=== PATIENT | male | born 1945 | race Hispanic/Latino ===

== ENCOUNTER 2017-02-12 11:05 | Inpatient (IN) | payer MEDICARE, MEDICAID ==
[2017-02-12 11:06] VITALS: BMI 24.5
[2017-02-12] MEDS ORDERED: Vancomycin 1 g Inj ONE (11:37)
--- NOTE | 2017-02-12 11:53 | ED PDOC ---
Lower Extremity Pain/Injury Time Seen by Provider: 02/12/17 11:20 Chief Complaint (Nursing): Lower Extremity Problem/Injury Chief Complaint (Provider): right great toe ulcer History Per: Patient History/Exam Limitations: no limitations Current Symptoms Are (Timing): Still Present Additional Complaint(s): Kalia Lowe is a 71 year old male, with a previous medical history of diabetes and a cardiac stent, who was sent to the ED by poured wall foreman Dr. Toledo secondary to failed outpatient treatment of a diabetic ulcer of the right great toe. Pt has been taking oral antibiotics with no improvement. Automation And Control Engineer is requesting pt be admitted for IV antibiotics and wound care. Pt denies any fever , chills, numbness or tingling. PMD: Diamond Toledo MD poured wall foreman Past Medical History Reviewed: Historical Data, Nursing Documentation, Vital Signs - Medical History PMH: Diabetes, HTN, Kidney Stones, Chronic Kidney Disease (KIDNEY STONES) Denies: Arthritis, HIV - Surgical History Surgical History: Cholecystectomy, Coronary Stent (times 1), Tonsillectomy - Family History Family History: States: Diabetes - Social History Current smoker - smoking cessation education provided: Yes - Home Medications Home Medications: Ambulatory Orders Medication Instructions Recorded Pantoprazole Sodium [Protonix] 40 mg PO DAILY 01/26/16 SITagliptin [Januvia] 100 mg PO DAILY 01/26/16 Aspirin [Aspirin Chewable] 81 mg PO DAILY #0 chew 01/30/16 Clopidogrel [Plavix] 75 mg PO DAILY #0 tab 01/30/16 Glimepiride [amaRYL] 4 mg PO DAILY 02/24/16 Ondansetron [Zofran] 4 mg PO Q6H PRN #10 tab 08/19/16 Insulin Human Regular [Novolin R] 15 units SQ DAILY 02/12/17 - Allergies Allergies/Adverse Reactions: Allergies Allergy/AdvReac Type Severity Reaction Status Date / Time No Known Allergies Allergy Verified 03/19/16 09:30 Review of Systems ROS Statement: Except As Marked, All Systems Reviewed And Found Negative Constitutional: Negative for: Fever, Chills Musculoskeletal: Positive for: Foot Pain (right great toe ulcer ) Neurological: Negative for: Numbness, Other (tingling ) Physical Exam - Reviewed Nursing Documentation Reviewed: Yes Vital Signs Reviewed: Yes - Physical Exam Appears: Positive for: Well, Non-toxic, No Acute Distress Skin: Positive for: Normal Color, Warm, Dry Cardiovascular/Chest: Positive for: Regular Rate, Rhythm Respiratory: Positive for: CNT, Normal Breath Sounds Gastrointestinal/Abdominal: Positive for: Normal Exam Back: Positive for: Normal Inspection Extremity: Positive for: Tenderness (mild tenderness to right great toe ), Other (ulcer to the plantar surface of the right great toe. no drainage of pus) . Negative for: Calf Tenderness, Deformity, Swelling Neurologic/Psych: Positive for: Alert, Oriented. Negative for: Motor/Sensory Deficits - Laboratory Results Result Diagrams: 02/12/17 12:00 02/12/17 12:00 Medical Decision Making Medical Decision Making: Initial Impression: Diabetic Ulcer with failed outpatient treatment Initial Plan: * labs * blood culture * partial thromboplastin time * prothrombin time * x-ray right foot * x-ray right great toe * blood culture * vancomycin inj * cleocin IV * reevaluation 1:15 PM - Admission endorsed to Garrick Hwang SQUASH CENTRE MANAGER. Podiatry also saw pt and recommend admission for IV abx. Arterial doppler also ordered to assess pt's pulses. Podiatry will follow as a consulting service. 13:41 X-ray Great toe BONES: There is diffuse bone demineralization. There is no acute fracture or bone destruction. Bone alignment is normal. JOINTS: Normal. SOFT TISSUES: There is soft tissue swelling in the great toe. OTHER FINDINGS: None. IMPRESSION: No acute fracture or bone destruction. Soft tissue swelling in the great toe. Scribe Attestation: Documented by Erica Desai, acting as a scribe for Anish Keith Jr., D.O. Provider Scribe Attestation: All medical record entries made by the Scribe were at my direction and personally dictated by me. I have reviewed the chart and agree that the record accurately reflects my personal performance of the history, physical exam, medical decision making, and the department course for this patient. I have also personally directed, reviewed, and agree with the discharge instructions and disposition. Disposition - Clinical Impression Clinical Impression: Toe ulcer due to DM - Patient ED Disposition Is Patient to be Admitted: Yes - Disposition Disposition Time: 13:02 Condition: FAIR - Pt Status Changed To: Hospital Disposition Of: Inpatient - Admit Certification Admit to Inpatient:: After my assessment, the patient will require hospitalization for at least two midnights. This is because of the severity of symptoms shown, intensity of services needed, and/or the medical risk in this patient being treated as an outpatient.
[2017-02-12 12:09] LABS: BASO # 0.1 K/uL (0.0-0.2); BASO % 1.4 % (0.0-2.0); EOS # 0.2 K/uL (0.0-0.7); EOS % 3.5 % (0.0-4.0); HEMATOCRIT 42.1 % (35.0-51.0); LYMPH # 2.1 K/uL (1.0-4.3); LYMPH % 29.9 % (20.0-40.0); MEAN CELL VOLUME 70.7 fl (80.0-94.0); MEAN CORPUSCULAR HEMOGLOBIN 22.7 pg (27.0-31.0); MEAN CORPUSCULAR HGB CONC 32.1 g/dL (33.0-37.0); MEAN PLATELET VOLUME 8.7 fl (7.2-11.7); MONO # 0.6 K/uL (0.0-0.8); MONO % 8.8 % (0.0-10.0); NEUT # 3.9 K/uL (1.8-7.0); NEUT % 56.4 % (50.0-75.0); RED CELL DISTRIBUTION WIDTH 15.4 % (11.5-14.5); WHITE BLOOD COUNT 6.9 K/uL (4.8-10.8)
[2017-02-12 12:17] LABS: ALB/GLOB RATIO 1.1 (1.0-2.1); ALKALINE PHOSPHATASE 106 U/L (38-126); ALT/SGPT 26 U/L (21-72); AST/SGOT 25 U/L (17-59); BILIRUBIN,TOTAL 0.6 mg/dl (0.2-1.3); BLOOD UREA NITROGEN 20 mg/dl (9-20); CALCIUM 9.7 mg/dL (8.4-10.2); CARBON DIOXIDE 23 mmol/L (22-30); CHLORIDE 108 mmol/L (98-107); GFR AFRICAN-AMERICAN > 60; GLUCOSE,RANDOM 102 mg/dL (75-110); POTASSIUM 4.4 MMOL/L (3.6-5.0); SODIUM 145 mmol/l (132-148); TOTAL PROTEIN 7.4 G/DL (6.3-8.2)
[2017-02-12 12:28] LABS: PARTIAL THROMBOPLASTIN TIME 26.6 SECONDS (23.3-32.5)
--- NOTE | 2017-02-12 12:45 | CP.PCM.CON ---
History of Present Illness - History of Present Illness History of Present Illness: PODIATRY CONSULT NOTE FOR DR. CISSE: This is a 71 yo male patient who presents to the ED today with chief complaint of right big toe ulceration. Per pt he saw his patcher wood welder today (Dr. Soha Toledo) who sent patient to the ED. Patient has failed outpatient po antibiotics. Says he has had an ulcer to this toe x 2 weeks. Previously had ulcer to left toe which he says has healed. Denies f/n/v/c/sob/cp. Says he is compliant with meds. Denies numbness or tingling to the foot. PMH: DM, cardiac stent ALL: NKDA Meds: see MAR Soc. Hx: non-domiciled, smokes 1-2 packs cig/day x 30 years, denies ETOH, denies illicit drugs PMD: Millie (CASUALTY CLAIMS SUPERVISOR at [facility]) Paint Spray Tender: Dr. Diamond Toledo ([facility]) Review of Systems - Review of Systems Review of Systems: All systems reviewed and found to be negative except pertinent HPI findings Past Patient History - Infectious Disease Hx of Infectious Diseases: None - Past Medical History & Family History Past Medical History?: Yes - Past Social History Smoking Status: Former Smoker - CARDIAC Hx Hypertension: Yes - PULMONARY Hx Respiratory Disorders: No - NEUROLOGICAL Hx Neurological Disorder: No - HEENT Hx HEENT Problems: Yes Hx Cataracts: Yes - RENAL Hx Chronic Kidney Disease: Yes (KIDNEY STONES) Hx Kidney Stones: Yes - ENDOCRINE/METABOLIC Hx Endocrine Disorders: Yes Hx Diabetes Mellitus Type 2: Yes - HEMATOLOGICAL/ONCOLOGICAL Hx Human Immunodeficiency Virus (HIV): No - INTEGUMENTARY Hx Dermatological Problems: No - MUSCULOSKELETAL/RHEUMATOLOGICAL Hx Arthritis: No - GASTROINTESTINAL Hx Gastrointestinal Disorders: Yes Hx Gastroesophageal Reflux: Yes - GENITOURINARY/GYNECOLOGICAL Hx Genitourinary Disorders: No - PSYCHIATRIC Hx Psychophysiologic Disorder: No Hx Substance Use: No - SURGICAL HISTORY Hx Cholecystectomy: Yes Hx Coronary Stent: Yes (times 1) Hx Tonsillectomy: Yes - ANESTHESIA Hx Anesthesia: Yes Hx Anesthesia Reactions: No Hx Malignant Hyperthermia: No Meds Allergies/Adverse Reactions: Allergies Allergy/AdvReac Type Severity Reaction Status Date / Time No Known Allergies Allergy Verified 03/19/16 09:30 - Medications Medications: Current Medications Vancomycin HCl 1,000 mg/ (Sodium Chloride) 250 mls @ 125 mls/hr IVPB STAT STA Stop: 02/12/17 13:38 Last Admin: 02/12/17 11:58 Dose: 125 mls/hr Clindamycin Phosphate 600 mg/ (Sodium Chloride) 54 mls @ 54 mls/hr IVPB ONCE ONE Stop: 02/12/17 12:47 Physical Exam - Constitutional Appears: Non-toxic, No Acute Distress - Extremities Exam Extremities exam: Negative for: calf tenderness Additional comments: RLE focused exam: VASC- DP/PT pulses fully palpable, cft <3 sec to digits x 5, cap refill <3 sec to all digits, slight edema noted to distal hallux NEURO- gross pedal sensation is diminished DERM- erythema is noted circumferentially starting from naviculo-cuneiform joint extending distally to hallux w/ increased callor, there is an ulceration noted plantar-medial aspect of hallux IPJ w/ granular wound bed, no probe to bone, no malodor, no flucutuance, no purulence on compression ORTHO- tenderness to palpation of wound, no gross deformities seen - Neurological Exam Neurological exam: Alert, CN II-XII Intact, Oriented x3 - Psychiatric Exam Psychiatric exam: Normal Affect, Normal Mood Results - Labs Result Diagrams: 02/12/17 12:00 02/12/17 12:00 Labs: Laboratory Results - last 24 hr 02/12/17 12:00 WBC 6.9 RBC 5.96 H Hgb 13.5 Hct 42.1 MCV 70.7 L MCH 22.7 L MCHC 32.1 L RDW 15.4 H Plt Count 189 MPV 8.7 Neut % (Auto) 56.4 Lymph % (Auto) 29.9 [place] % (Auto) 8.8 Eos % (Auto) 3.5 Baso % (Auto) 1.4 Neut # 3.9 Lymph # 2.1 [place] # 0.6 Eos # 0.2 Baso # 0.1 Sodium 145 Potassium 4.4 Chloride 108 H Carbon Dioxide 23 Anion Gap 18 BUN 20 Creatinine 0.7 L Est GFR ( Amer) > 60 Est GFR (Non-Af Amer) > 60 Random Glucose 102 Calcium 9.7 Total Bilirubin 0.6 AST 25 ALT 26 Alkaline Phosphatase 106 Total Protein 7.4 Albumin 3.9 Globulin 3.5 Albumin/Globulin Ratio 1.1 Assessment & Plan - Assessment and Plan (Free Text) Assessment: 71 yo diabetic male w/ ulceration and cellulitis to right foot secondary to diabetic neuropathy Plan: -Pt S&E in ED at bedside -Discussed plan w/ attending Dr. Leatha GREENBERG and ED attending Dr. Keith -Chart labs and vitals reviewed: afebrile, WBC 6.9 -Wound cx taken -Xrays reviewed: (-) OM, no fx or dislocation, soft tissue swelling noted -Wound flushed with normal saline and dressed with W2D betadine gauze, DSD -Pt may WB to heal -F/u arterial duplex -Abd per primary (clinda,vanco) -Will be admitted for IV antibiotics under Garrick Hwang NP -Will follow
--- NOTE | 2017-02-12 13:43 | RAD ---
PROCEDURE: Radiographs of the right great toe. TECHNIQUE:: AP radiograph of the right foot, with oblique and lateral view of the right great toe. COMPARISON: 03/19/2016. FINDINGS: BONES: There is diffuse bone demineralization. There is no acute fracture or bone destruction. Bone alignment is normal. JOINTS: Normal. SOFT TISSUES: There is soft tissue swelling in the great toe. OTHER FINDINGS: None. IMPRESSION: No acute fracture or bone destruction. Soft tissue swelling in the great toe.
[2017-02-12] MEDS ORDERED: Insulin Regular 100 units/ml SC SCH (14:00)
[2017-02-12] MEDS: Sodium Chloride 0.9% 1,000 ML IV SCH (16:00)
[2017-02-12] MEDS: Clindamycin 300 MG in Sodium Chloride 0.9% 100 ML IVPB SCH ×2 (17:03→23:05)
[2017-02-12] MEDS: Lactobacillus Acidophilus 500 MU Cap PO SCH (17:04)
[2017-02-12] MEDS: Pantoprazole 40 mg EC Tab PO SCH (17:05)
[2017-02-13] MEDS: Sodium Chloride 0.9% 1,000 ML IV SCH
[2017-02-13] MEDS: Clindamycin 300 MG in Sodium Chloride 0.9% 100 ML IVPB SCH ×5 (03:33→22:36)
--- NOTE | 2017-02-13 07:50 | CP.PCM.PN ---
Subjective - Date & Time of Evaluation Date of Evaluation: 02/13/17 Time of Evaluation: 07:45 - Subjective Subjective: 71 yo diabetic male patient seen at bedside today for f/u of right hallux ulceration/cellulitis. Resting comfortably in bed, denies any acute events overnight. Does complain of very slight tenderness to the toe. Denies f/n/v/c/ sob/cp. Denies any other problems at this time. Objective - Vital Signs/Intake and Output Vital Signs (last 24 hours): Temp Pulse Resp BP Pulse Ox 97.9 F 66 20 138/64 97 02/12/17 20:56 02/12/17 20:56 02/12/17 20:56 02/12/17 20:56 02/12/17 20:56 - Medications Medications: Current Medications Aspirin (Aspirin Chewable) 81 mg PO DAILY [facility] Last Admin: 02/12/17 17:04 Dose: 81 mg Clopidogrel Bisulfate (Plavix) 75 mg PO DAILY [facility] Last Admin: 02/12/17 17:09 Dose: 75 mg Enoxaparin Sodium (Lovenox) 40 mg SC DAILY [facility] PRN Reason: Protocol Glipizide (Glucotrol Xl) 10 mg PO DAILY [facility] Sodium Chloride (Sodium Chloride 0.9%) 1,000 mls @ 100 mls/hr IV .Q10H [facility] Stop: 02/13/17 14:01 Last Admin: 02/13/17 00:00 Dose: Not Given Vancomycin HCl 1 gm/ Sodium (Chloride) 250 mls @ 166.667 mls/hr IVPB Q12 [facility] Last Admin: 02/12/17 21:00 Dose: 166.667 mls/hr Clindamycin Phosphate 300 mg/ (Sodium Chloride) 102 mls @ 102 mls/hr IVPB 0530, 1130,1730,2330 [facility] Last Admin: 02/13/17 05:10 Dose: 102 mls/hr Insulin Human Regular (Humulin R) 15 units SC DAILY [facility] Last Admin: 02/12/17 17:00 Dose: Not Given Lactobacillus Acidophilus (Bacid Acidophilus) 1 cap PO BID [facility] Last Admin: 02/12/17 17:04 Dose: 1 cap Ondansetron HCl (Zofran Tab) 4 mg PO Q6H PRN PRN Reason: Nausea/Vomiting Pantoprazole Sodium (Protonix Ec Tab) 40 mg PO DAILY [facility] Last Admin: 02/12/17 17:05 Dose: 40 mg Sitagliptin Phosphate (Januvia) 100 mg PO DAILY [facility] Last Admin: 02/12/17 17:04 Dose: 100 mg - Labs Labs: PT 10.0 SECONDS (9.6-11.2) 02/12/17 12:00 INR 0.96 (0.92-1.08) 02/12/17 12:00 APTT 26.6 SECONDS (23.3-32.5) 02/12/17 12:00 - Constitutional Appears: Well, Non-toxic, No Acute Distress - Extremities Exam Extremities Exam: absent: Calf Tenderness Additional comments: RLE focused exam: VASC- DP/PT pulses fully palpable, cft <3 sec to digits x 5, cap refill <3 sec to all digits, slight edema noted to distal hallux NEURO- gross pedal sensation is diminished DERM- erythema is present but appears to be regressing, there is an ulceration noted plantar-medial aspect of hallux IPJ w/ granular wound bed, no probe to bone, no malodor, no flucutuance, no purulence on compression, appears dry today ORTHO- slight tenderness to palpation of wound, no gross deformities seen - Neurological Exam Neurological Exam: Alert, Awake, Oriented x3 - Psychiatric Exam Psychiatric exam: Normal Affect, Normal Mood Assessment and Plan - Assessment and Plan (Free Text) Assessment: 71 yo diabetic male w/ ulceration and cellulitis to right foot secondary to diabetic neuropathy Plan: -Pt S&E at bedside -Plan discussed w/ attending Dr. Zhang -Chart labs and vitals reviewed: afebrile, WBC 5.1 today -Wound cx (prelim): no growth after 24 hours -Xrays reviewed: (-) OM, no fx or dislocation, soft tissue swelling noted -Arterial duplex taken: pending report -Wound flushed with normal saline and dressed with W2D saline gauze, DSD -Will order Santyl (to be applied tomorrow) -Pt may WB to heal w/ surgical shoe -c/w abxprimary (clinda,vanco) -Stable per podiatry -Will follow
[2017-02-13 08:40] LABS: BASO % 0.9 % (0.0-2.0); EOS # 0.3 K/uL (0.0-0.7); EOS % 5.2 % (0.0-4.0); HEMATOCRIT 41.6 % (35.0-51.0); LYMPH # 1.4 K/uL (1.0-4.3); LYMPH % 26.5 % (20.0-40.0); MEAN CELL VOLUME 70.4 fl (80.0-94.0); MEAN CORPUSCULAR HEMOGLOBIN 22.5 pg (27.0-31.0); MEAN CORPUSCULAR HGB CONC 31.9 g/dL (33.0-37.0); MEAN PLATELET VOLUME 8.7 fl (7.2-11.7); MONO # 0.6 K/uL (0.0-0.8); NEUT # 2.9 K/uL (1.8-7.0); NEUT % 56.4 % (50.0-75.0); NRBC % 0.1 % (0.0-0.0); RED CELL DISTRIBUTION WIDTH 15.3 % (11.5-14.5); WHITE BLOOD COUNT 5.1 K/uL (4.8-10.8)
[2017-02-13 09:09] LABS: ALB/GLOB RATIO 1.1 (1.0-2.1); ALKALINE PHOSPHATASE 76 U/L (38-126); ALT/SGPT 30 U/L (21-72); AST/SGOT 21 U/L (17-59); BILIRUBIN,TOTAL 0.6 mg/dl (0.2-1.3); BLOOD UREA NITROGEN 19 mg/dl (9-20); CALCIUM 8.8 mg/dL (8.4-10.2); CARBON DIOXIDE 27 mmol/L (22-30); CHLORIDE 108 mmol/L (98-107); GFR AFRICAN-AMERICAN > 60; GLUCOSE,RANDOM 103 mg/dL (75-110); POTASSIUM 4.6 MMOL/L (3.6-5.0); SODIUM 145 mmol/l (132-148); TOTAL PROTEIN 6.3 G/DL (6.3-8.2)
--- NOTE | 2017-02-13 09:27 | CP.PCM.PN ---
Subjective - Date & Time of Evaluation Date of Evaluation: 02/13/17 Time of Evaluation: 09:27 Objective - Vital Signs/Intake and Output Vital Signs (last 24 hours): Temp Pulse Resp BP Pulse Ox 98 F 63 20 167/68 H 98 02/13/17 07:54 02/13/17 07:54 02/13/17 07:54 02/13/17 07:54 02/13/17 07:54 - Medications Medications: Current Medications Aspirin (Aspirin Chewable) 81 mg PO DAILY [facility] Last Admin: 02/12/17 17:04 Dose: 81 mg Clopidogrel Bisulfate (Plavix) 75 mg PO DAILY [facility] Last Admin: 02/12/17 17:09 Dose: 75 mg Collagenase (Santyl) 1 applic TOP DAILY [facility] Enoxaparin Sodium (Lovenox) 40 mg SC DAILY [facility] PRN Reason: Protocol Glipizide (Glucotrol Xl) 10 mg PO DAILY [facility] Sodium Chloride (Sodium Chloride 0.9%) 1,000 mls @ 100 mls/hr IV .Q10H [facility] Stop: 02/13/17 14:01 Last Admin: 02/13/17 00:00 Dose: Not Given Vancomycin HCl 1 gm/ Sodium (Chloride) 250 mls @ 166.667 mls/hr IVPB Q12 [facility] Last Admin: 02/12/17 21:00 Dose: 166.667 mls/hr Clindamycin Phosphate 300 mg/ (Sodium Chloride) 102 mls @ 102 mls/hr IVPB 0530, 1130,1730,2330 [facility] Last Admin: 02/13/17 05:10 Dose: 102 mls/hr Insulin Human Regular (Humulin R) 15 units SC DAILY [facility] Last Admin: 02/12/17 17:00 Dose: Not Given Lactobacillus Acidophilus (Bacid Acidophilus) 1 cap PO BID [facility] Last Admin: 02/12/17 17:04 Dose: 1 cap Ondansetron HCl (Zofran Tab) 4 mg PO Q6H PRN PRN Reason: Nausea/Vomiting Pantoprazole Sodium (Protonix Ec Tab) 40 mg PO DAILY [facility] Last Admin: 02/12/17 17:05 Dose: 40 mg Sitagliptin Phosphate (Januvia) 100 mg PO DAILY [facility] Last Admin: 02/12/17 17:04 Dose: 100 mg - Labs Labs: 02/13/17 06:50 02/13/17 06:50 PT 10.0 SECONDS (9.6-11.2) 02/12/17 12:00 INR 0.96 (0.92-1.08) 02/12/17 12:00 APTT 26.6 SECONDS (23.3-32.5) 02/12/17 12:00
[2017-02-13] MEDS: Lactobacillus Acidophilus 500 MU Cap PO SCH ×2 (10:04→16:46)
[2017-02-13] MEDS: GlipiZIDE 10 mg SR Tab PO SCH (10:04)
[2017-02-13] MEDS: Pantoprazole 40 mg EC Tab PO SCH (10:05)
--- NOTE | 2017-02-13 10:45 | CP.PCM.HP ---
History of Present Illness - History of Present Illness History of Present Illness: pt admitted for r great toe cellulitis. cared for by podiatry and primary at [facility]. at [facility] just changed by podaitry resident. on vanco/cleocin in house. c/so btaine dna is pending. wound x 2 wks. pt is homeless but has apt lined up for 02/23/17. pts glucose wnlat present. takes ok care of himself-?? able to fiscally care for self. will need ss/cm intervention prior to dc Present on Admission - Present on Admission Any Indicators Present on Admission: No Review of Systems - Integumentary Integumentary: As Per HPI, Erythema Past Patient History - Infectious Disease Hx of Infectious Diseases: None - Past Medical History & Family History Past Medical History?: Yes - Past Social History Smoking Status: 2 packs - CARDIAC Hx Hypertension: Yes - PULMONARY Hx Respiratory Disorders: No - NEUROLOGICAL Hx Neurological Disorder: No - HEENT Hx HEENT Problems: Yes Hx Cataracts: Yes - RENAL Hx Chronic Kidney Disease: Yes (KIDNEY STONES) Hx Kidney Stones: Yes - ENDOCRINE/METABOLIC Hx Endocrine Disorders: Yes Hx Diabetes Mellitus Type 2: Yes - HEMATOLOGICAL/ONCOLOGICAL Hx Human Immunodeficiency Virus (HIV): No - INTEGUMENTARY Hx Dermatological Problems: No - MUSCULOSKELETAL/RHEUMATOLOGICAL Hx Arthritis: No Hx Falls: No - GASTROINTESTINAL Hx Gastrointestinal Disorders: Yes Hx Gastroesophageal Reflux: Yes - GENITOURINARY/GYNECOLOGICAL Hx Genitourinary Disorders: No - PSYCHIATRIC Hx Psychophysiologic Disorder: No Hx Substance Use: No - SURGICAL HISTORY Hx Cataract Extraction: Yes Hx Cholecystectomy: Yes Hx Coronary Stent: Yes (times 1) Hx Tonsillectomy: Yes - ANESTHESIA Hx Anesthesia: Yes Hx Anesthesia Reactions: No Hx Malignant Hyperthermia: No Meds Allergies/Adverse Reactions: Allergies Allergy/AdvReac Type Severity Reaction Status Date / Time No Known Allergies Allergy Verified 03/19/16 09:30 Physical Exam - Constitutional Appears: Well, Non-toxic, No Acute Distress - Head Exam Head Exam: ATRAUMATIC, NORMAL INSPECTION, NORMOCEPHALIC - Eye Exam Eye Exam: EOMI, Normal appearance, PERRL Pupil Exam: NORMAL ACCOMODATION, PERRL - ENT Exam ENT Exam: Mucous Membranes Moist, Normal Exam - Neck Exam Neck exam: Positive for: Normal Inspection - Respiratory Exam Respiratory Exam: Clear to Auscultation Bilateral, NORMAL BREATHING PATTERN - Cardiovascular Exam Cardiovascular Exam: REGULAR RHYTHM, RRR, +S1, +S2 - GI/Abdominal Exam GI & Abdominal Exam: Normal Bowel Sounds, Soft. absent: Tenderness - Extremities Exam Extremities exam: Positive for: full ROM, normal capillary refill, normal inspection, pedal pulses present - Back Exam Back exam: FULL ROM, NORMAL INSPECTION - Neurological Exam Neurological exam: Alert, CN II-XII Intact, Normal Gait, Oriented x3, Reflexes Normal - Psychiatric Exam Psychiatric exam: Normal Affect, Normal Mood - Skin Skin Exam: Dry, Erythema, Intact, Normal Color, Warm Additional comments: dsg to r foot c/d/i Results - Vital Signs Recent Vital Signs: Last Vital Signs Temp 98 F 02/13/17 07:54 Pulse 63 02/13/17 07:54 Resp 20 02/13/17 07:54 BP 167/68 H 02/13/17 07:54 Pulse Ox 98 02/13/17 07:54 - Labs Result Diagrams: 02/13/17 06:50 02/13/17 06:50 Labs: Laboratory Results - last 24 hr 02/12/17 02/12/17 02/13/17 16:30 21:18 06:14 WBC RBC Hgb Hct MCV MCH MCHC RDW Plt Count MPV Neut % (Auto) Lymph % (Auto) [place] % (Auto) Eos % (Auto) Baso % (Auto) Neut # Lymph # [place] # Eos # Baso # Sodium Potassium Chloride Carbon Dioxide Anion Gap BUN Creatinine Est GFR ( Amer) Est GFR (Non-Af Amer) POC Glucose (mg/dL) 135 H 111 H 103 Random Glucose Calcium Total Bilirubin AST ALT Alkaline Phosphatase Total Protein Albumin Globulin Albumin/Globulin Ratio 02/13/17 02/13/17 06:50 10:36 WBC 5.1 RBC 5.90 Hgb 13.3 Hct 41.6 MCV 70.4 L MCH 22.5 L MCHC 31.9 L RDW 15.3 H Plt Count 161 MPV 8.7 Neut % (Auto) 56.4 Lymph % (Auto) 26.5 [place] % (Auto) 11.0 H Eos % (Auto) 5.2 H Baso % (Auto) 0.9 Neut # 2.9 Lymph # 1.4 [place] # 0.6 Eos # 0.3 Baso # 0.0 Sodium 145 Potassium 4.6 Chloride 108 H Carbon Dioxide 27 Anion Gap 15 BUN 19 Creatinine 0.8 Est GFR ( Amer) > 60 Est GFR (Non-Af Amer) > 60 POC Glucose (mg/dL) 205 H Random Glucose 103 Calcium 8.8 Total Bilirubin 0.6 AST 21 ALT 30 Alkaline Phosphatase 76 Total Protein 6.3 Albumin 3.3 L Globulin 3.1 Albumin/Globulin Ratio 1.1 Assessment & Plan (1) DVT prophylaxis Assessment and Plan: scd nad a ehose lovenox Status: Acute (2) Toe ulcer due to DM Assessment and Plan: vanco/cleocin podiatry wound care santyl c/s garret/tcu Status: Acute (3) Type 2 diabetes mellitus with hyperglycemia Assessment and Plan: riss, dietary fsbg Status: Acute Decision To Admit - Pt Status Changed To: Hospital Disposition Of: Inpatient - Admit Certification Admit to Inpatient:: After my assessment, the patient will require hospitalization for at least two midnights. This is because of the severity of symptoms shown, intensity of services needed, and/or the medical risk in this patient being treated as an outpatient. - . Bed Request Type: Med/Surg Admitting Physician: Hedy Franks
[2017-02-13] MEDS: Insulin Regular 100 units/ml SC SCH ×3 (13:17→21:38)
[2017-02-13] MEDS: Enoxaparin 40 mg Syringe SC SCH (18:53)
[2017-02-14] MEDS: Clindamycin 300 MG in Sodium Chloride 0.9% 100 ML IVPB SCH ×4 (05:03→22:30)
[2017-02-14] MEDS: Insulin Regular 100 units/ml SC SCH ×4 (06:40→22:03)
--- NOTE | 2017-02-14 07:22 | CP.PCM.PN ---
Subjective - Date & Time of Evaluation Date of Evaluation: 02/14/17 Time of Evaluation: 07:22 - Subjective Subjective: doing well, no complaitns/distress bw noted sw aware fo pt for dcd planning no f/c, n/v/d pod note appricaited Objective - Vital Signs/Intake and Output Vital Signs (last 24 hours): Temp Pulse Resp BP Pulse Ox 98.5 F 64 18 153/74 H 98 02/13/17 21:07 02/13/17 21:07 02/13/17 21:07 02/13/17 21:07 02/13/17 21:07 - Medications Medications: Current Medications Aspirin (Aspirin Chewable) 81 mg PO DAILY [facility] Last Admin: 02/13/17 10:04 Dose: 81 mg Clopidogrel Bisulfate (Plavix) 75 mg PO DAILY [facility] Last Admin: 02/13/17 10:04 Dose: 75 mg Collagenase (Santyl) 1 applic TOP DAILY [facility] Enoxaparin Sodium (Lovenox) 40 mg SC DAILY [facility] PRN Reason: Protocol Last Admin: 02/13/17 18:53 Dose: 40 mg Glipizide (Glucotrol Xl) 10 mg PO DAILY [facility] Last Admin: 02/13/17 10:04 Dose: 10 mg Vancomycin HCl 1 gm/ Sodium (Chloride) 250 mls @ 166.667 mls/hr IVPB Q12 [facility] Last Admin: 02/13/17 20:26 Dose: 166.667 mls/hr Clindamycin Phosphate 300 mg/ (Sodium Chloride) 102 mls @ 102 mls/hr IVPB 0530, 1130,1730,2330 [facility] Last Admin: 02/14/17 05:03 Dose: 102 mls/hr Insulin Human Regular (Humulin R) 0 units SC ACHS [facility] PRN Reason: Protocol Last Admin: 02/14/17 06:40 Dose: Not Given Lactobacillus Acidophilus (Bacid Acidophilus) 1 cap PO BID [facility] Last Admin: 02/13/17 16:46 Dose: 1 cap Ondansetron HCl (Zofran Tab) 4 mg PO Q6H PRN PRN Reason: Nausea/Vomiting Pantoprazole Sodium (Protonix Ec Tab) 40 mg PO DAILY [facility] Last Admin: 02/13/17 10:05 Dose: 40 mg Sitagliptin Phosphate (Januvia) 100 mg PO DAILY [facility] Last Admin: 02/13/17 10:04 Dose: 100 mg - Labs Labs: 02/13/17 06:50 02/13/17 06:50 PT 10.0 SECONDS (9.6-11.2) 02/12/17 12:00 INR 0.96 (0.92-1.08) 02/12/17 12:00 APTT 26.6 SECONDS (23.3-32.5) 02/12/17 12:00 - Constitutional Appears: Well, Non-toxic, No Acute Distress - Head Exam Head Exam: ATRAUMATIC, NORMAL INSPECTION, NORMOCEPHALIC - Eye Exam Eye Exam: EOMI, Normal appearance, PERRL Pupil Exam: NORMAL ACCOMODATION, PERRL - ENT Exam ENT Exam: Mucous Membranes Moist, Normal Exam - Neck Exam Neck Exam: Full ROM, Normal Inspection. absent: Lymphadenopathy - Respiratory Exam Respiratory Exam: Clear to Ausculation Bilateral, NORMAL BREATHING PATTERN - Cardiovascular Exam Cardiovascular Exam: REGULAR RHYTHM, +S1, +S2. absent: Murmur - GI/Abdominal Exam GI & Abdominal Exam: Soft, Normal Bowel Sounds. absent: Tenderness - Extremities Exam Extremities Exam: Full ROM, Normal Capillary Refill, Normal Inspection. absent : Joint Swelling, Pedal Edema - Back Exam Back Exam: NORMAL INSPECTION - Neurological Exam Neurological Exam: Alert, Awake, CN II-XII Intact, Normal Gait, Oriented x3 - Psychiatric Exam Psychiatric exam: Normal Affect, Normal Mood - Skin Skin Exam: Dry, Intact, Normal Color, Warm Additional comments: dsg c/d/i Assessment and Plan (1) DVT prophylaxis Status: Acute (2) Toe ulcer due to DM Status: Acute (3) Type 2 diabetes mellitus with hyperglycemia Status: Acute - Assessment and Plan (Free Text) Assessment: (1) DVT prophylaxis Assessment and Plan: scd nad a ehose lovenox Status: Acute (2) Toe ulcer due to DM Assessment and Plan: vanco/cleocin podiatry wound care santyl c/s [place]/tcu Status: Acute (3) Type 2 diabetes mellitus with hyperglycemia Assessment and Plan: riss, dietary fsbg Status: Acute 4-headache/nasal congestion-flonase
--- NOTE | 2017-02-14 07:28 | CP.PCM.PN ---
Subjective - Date & Time of Evaluation Date of Evaluation: 02/14/17 Time of Evaluation: 07:30 - Subjective Subjective: 71 yo diabetic male patient seen at bedside today for f/u of right hallux ulceration/cellulitis. Resting comfortably in bed, denies any acute events overnight. Does complain of very slight tenderness to the toe. Denies f/n/v/c/ sob/cp. Denies any other problems at this time. Objective - Vital Signs/Intake and Output Vital Signs (last 24 hours): Temp Pulse Resp BP Pulse Ox 98.5 F 64 18 153/74 H 98 02/13/17 21:07 02/13/17 21:07 02/13/17 21:07 02/13/17 21:07 02/13/17 21:07 - Medications Medications: Current Medications Aspirin (Aspirin Chewable) 81 mg PO DAILY [facility] Last Admin: 02/13/17 10:04 Dose: 81 mg Clopidogrel Bisulfate (Plavix) 75 mg PO DAILY [facility] Last Admin: 02/13/17 10:04 Dose: 75 mg Collagenase (Santyl) 1 applic TOP DAILY [facility] Enoxaparin Sodium (Lovenox) 40 mg SC DAILY [facility] PRN Reason: Protocol Last Admin: 02/13/17 18:53 Dose: 40 mg Fluticasone Propionate (Flonase) 1 spr RADHA BID [facility] Glipizide (Glucotrol Xl) 10 mg PO DAILY [facility] Last Admin: 02/13/17 10:04 Dose: 10 mg Vancomycin HCl 1 gm/ Sodium (Chloride) 250 mls @ 166.667 mls/hr IVPB Q12 [facility] Last Admin: 02/13/17 20:26 Dose: 166.667 mls/hr Clindamycin Phosphate 300 mg/ (Sodium Chloride) 102 mls @ 102 mls/hr IVPB 0530, 1130,1730,2330 [facility] Last Admin: 02/14/17 05:03 Dose: 102 mls/hr Insulin Human Regular (Humulin R) 0 units SC ACHS [facility] PRN Reason: Protocol Last Admin: 02/14/17 06:40 Dose: Not Given Lactobacillus Acidophilus (Bacid Acidophilus) 1 cap PO BID [facility] Last Admin: 02/13/17 16:46 Dose: 1 cap Ondansetron HCl (Zofran Tab) 4 mg PO Q6H PRN PRN Reason: Nausea/Vomiting Pantoprazole Sodium (Protonix Ec Tab) 40 mg PO DAILY [facility] Last Admin: 02/13/17 10:05 Dose: 40 mg Sitagliptin Phosphate (Januvia) 100 mg PO DAILY [facility] Last Admin: 02/13/17 10:04 Dose: 100 mg - Labs Labs: 02/13/17 06:50 02/13/17 06:50 PT 10.0 SECONDS (9.6-11.2) 02/12/17 12:00 INR 0.96 (0.92-1.08) 02/12/17 12:00 APTT 26.6 SECONDS (23.3-32.5) 02/12/17 12:00 - Constitutional Appears: Well, Non-toxic, No Acute Distress - Extremities Exam Extremities Exam: absent: Calf Tenderness Additional comments: RLE focused exam: VASC- DP/PT pulses fully palpable, cft <3 sec to digits x 5, cap refill <3 sec to all digits, slight edema noted to distal hallux NEURO- gross pedal sensation is diminished DERM- erythema resolved, there is an ulceration noted plantar-medial aspect of hallux IPJ w/ granular wound bed, no probe to bone, no malodor, no flucutuance, no purulence on compression, appears dry today ORTHO- slight tenderness to palpation of wound, no gross deformities seen - Neurological Exam Neurological Exam: Alert, Awake, Oriented x3 - Psychiatric Exam Psychiatric exam: Normal Affect, Normal Mood Assessment and Plan - Assessment and Plan (Free Text) Assessment: 71 yo diabetic male w/ ulceration right foot secondary to diabetic neuropathy ( cellulitis resolved) Plan: -Pt S&E at bedside -Plan discussed w/ attending Dr. Zhang -Chart labs and vitals reviewed: afebrile, WBC 6.1 today -Wound cx (prelim): no growth after 24 hours -Xrays reviewed: (-) OM, no fx or dislocation, soft tissue swelling noted -Arterial duplex taken: pending report -Wound flushed with normal saline and dressed w/ santyl DSD -Pt may WB to heal w/ surgical shoe -c/w abx per primary (clinda,vanco) -Stable per podiatry. -Will follow
[2017-02-14 07:39] LABS: BASO % 0.6 % (0.0-2.0); EOS # 0.2 K/uL (0.0-0.7); EOS % 3.2 % (0.0-4.0); HEMATOCRIT 41.9 % (35.0-51.0); LYMPH # 1.7 K/uL (1.0-4.3); LYMPH % 27.6 % (20.0-40.0); MEAN CELL VOLUME 70.9 fl (80.0-94.0); MEAN CORPUSCULAR HEMOGLOBIN 22.7 pg (27.0-31.0); MEAN PLATELET VOLUME 8.7 fl (7.2-11.7); MONO # 0.6 K/uL (0.0-0.8); MONO % 9.9 % (0.0-10.0); NEUT # 3.6 K/uL (1.8-7.0); NEUT % 58.7 % (50.0-75.0); NRBC % 0.2 % (0.0-0.0); RED CELL DISTRIBUTION WIDTH 15.5 % (11.5-14.5); WHITE BLOOD COUNT 6.1 K/uL (4.8-10.8)
[2017-02-14 07:47] LABS: ALB/GLOB RATIO 1.1 (1.0-2.1); ALKALINE PHOSPHATASE 81 U/L (38-126); ALT/SGPT 30 U/L (21-72); AST/SGOT 19 U/L (17-59); BILIRUBIN,TOTAL 0.5 mg/dl (0.2-1.3); BLOOD UREA NITROGEN 17 mg/dl (9-20); CALCIUM 8.9 mg/dL (8.4-10.2); CARBON DIOXIDE 27 mmol/L (22-30); CHLORIDE 106 mmol/L (98-107); GFR AFRICAN-AMERICAN > 60; GLUCOSE,RANDOM 110 mg/dL (75-110); POTASSIUM 4.3 MMOL/L (3.6-5.0); SODIUM 146 mmol/l (132-148); TOTAL PROTEIN 6.6 G/DL (6.3-8.2)
--- NOTE | 2017-02-14 08:18 | US ---
PROCEDURE: Duplex ultrasound of the right lower extremity arteries. HISTORY: assess pedal and arterial flow COMPARISON: None available. TECHNIQUE: Grayscale and duplex Doppler evaluation of the right common femoral, superficial femoral, popliteal, posterior tibial and dorsalis pedis arteries was performed.. FINDINGS: COMMON FEMORAL ARTERY: Patent. Maximal flow velocity of 105 cm/s. SUPERFICIAL FEMORAL ARTERY:Patent. Maximal flow velocity of 73 cm/s. POPLITEAL ARTERY:Calcified plaque. Maximal flow velocity of sixty-two cm/s. POSTERIOR TIBIAL ARTERY: Patent. Maximal flow velocity of 36 cm/s. DORSALIS PEDIS ARTERY: Monophasic waveform, spectral broadening common dampening of arterial waveform calcified dorsalis pedis artery Maximal flow velocity of 208 cm/s. OTHER FINDINGS: None. IMPRESSION: Vascular stenoses confined to the right dorsalis pedis artery, maximum flow 208 centimeter/second. More proximally at peak systolic velocities are within normal limits without evidence of inflow disease or significant stenoses.
[2017-02-14] MEDS: Lactobacillus Acidophilus 500 MU Cap PO SCH ×2 (08:48→17:00)
[2017-02-14] MEDS: GlipiZIDE 10 mg SR Tab PO SCH (08:49)
[2017-02-14] MEDS: Pantoprazole 40 mg EC Tab PO SCH (08:50)
[2017-02-14] MEDS: Enoxaparin 40 mg Syringe SC SCH (08:51)
[2017-02-14] MEDS: Santyl Collagenase OINTMENT TOP SCH (11:27)
[2017-02-14 20:53] VITALS: O2SAT 98
--- NOTE | 2017-02-15 07:42 | CP.PCM.DIS ---
Provider - Provider Date of Admission: 02/12/17 13:00 Attending physician: Hedy Franks MD Time Spent in preparation of Discharge (in minutes): 15 Diagnosis - Discharge Diagnosis (1) Type 2 diabetes mellitus with hyperglycemia Status: Acute (2) DVT prophylaxis Status: Acute (3) Toe ulcer due to DM Status: Acute Hospital Course - Lab Results Lab Results: Micro Results 02/12/17 13:22 Foot - Right Gram Stain - Final 02/12/17 13:22 Foot - Right Wound Culture - Final Coagulase Neg Staphylococcus Most Recent Lab Values WBC 6.1 K/uL (4.8-10.8) 02/14/17 05:40 RBC 5.91 Mil/uL (4.40-5.90) H 02/14/17 05:40 Hgb 13.4 g/dL (12.0-18.0) 02/14/17 05:40 Hct 41.9 % (35.0-51.0) 02/14/17 05:40 MCV 70.9 fl (80.0-94.0) L 02/14/17 05:40 MCH 22.7 pg (27.0-31.0) L 02/14/17 05:40 MCHC 32.0 g/dL (33.0-37.0) L 02/14/17 05:40 RDW 15.5 % (11.5-14.5) H 02/14/17 05:40 Plt Count 165 K/uL (130-400) 02/14/17 05:40 MPV 8.7 fl (7.2-11.7) 02/14/17 05:40 Neut % (Auto) 58.7 % (50.0-75.0) 02/14/17 05:40 Lymph % (Auto) 27.6 % (20.0-40.0) 02/14/17 05:40 [place] % (Auto) 9.9 % (0.0-10.0) 02/14/17 05:40 Eos % (Auto) 3.2 % (0.0-4.0) 02/14/17 05:40 Baso % (Auto) 0.6 % (0.0-2.0) 02/14/17 05:40 Neut # 3.6 K/uL (1.8-7.0) 02/14/17 05:40 Lymph # 1.7 K/uL (1.0-4.3) 02/14/17 05:40 [place] # 0.6 K/uL (0.0-0.8) 02/14/17 05:40 Eos # 0.2 K/uL (0.0-0.7) 02/14/17 05:40 Baso # 0.0 K/uL (0.0-0.2) 02/14/17 05:40 PT 10.0 SECONDS (9.6-11.2) 02/12/17 12:00 INR 0.96 (0.92-1.08) 02/12/17 12:00 APTT 26.6 SECONDS (23.3-32.5) 02/12/17 12:00 Sodium 146 mmol/l (132-148) 02/14/17 05:40 Potassium 4.3 MMOL/L (3.6-5.0) 02/14/17 05:40 Chloride 106 mmol/L (98-107) 02/14/17 05:40 Carbon Dioxide 27 mmol/L (22-30) 02/14/17 05:40 Anion Gap 18 (10-20) 02/14/17 05:40 BUN 17 mg/dl (9-20) 02/14/17 05:40 Creatinine 0.9 mg/dL (0.8-1.5) 02/14/17 05:40 Est GFR ( Amer) > 60 02/14/17 05:40 Est GFR (Non-Af Amer) > 60 02/14/17 05:40 POC Glucose (mg/dL) 121 mg/dL (65-110) H 02/15/17 05:56 Random Glucose 110 mg/dL (75-110) 02/14/17 05:40 Calcium 8.9 mg/dL (8.4-10.2) 02/14/17 05:40 Total Bilirubin 0.5 mg/dl (0.2-1.3) 02/14/17 05:40 AST 19 U/L (17-59) 02/14/17 05:40 ALT 30 U/L (21-72) 02/14/17 05:40 Alkaline Phosphatase 81 U/L (38-126) 02/14/17 05:40 Total Protein 6.6 G/DL (6.3-8.2) 02/14/17 05:40 Albumin 3.4 g/dL (3.5-5.0) L 02/14/17 05:40 Globulin 3.2 gm/dL (2.2-3.9) 02/14/17 05:40 Albumin/Globulin Ratio 1.1 (1.0-2.1) 02/14/17 05:40 Discharge Exam - Head Exam Head Exam: ATRAUMATIC, NORMAL INSPECTION, NORMOCEPHALIC - Eye Exam Eye Exam: EOMI, Normal appearance, PERRL Pupil Exam: NORMAL ACCOMODATION, PERRL - Respiratory Exam Respiratory Exam: Clear to PA & Lateral, NORMAL BREATHING PATTERN, UNREMARKABLE - Cardiovascular Exam Cardiovascular Exam: REGULAR RHYTHM, RRR, +S1, +S2 - GI/Abdominal Exam GI & Abdominal Exam: Normal Bowel Sounds, Soft, Unremarkable - Extremities Exam Extremities exam: full ROM, normal capillary refill, normal inspection, pedal pulses present - Back Exam Back exam: FULL ROM - Neurological Exam Neurological exam: Alert, CN II-XII Intact, Normal Gait, Oriented x3, Reflexes Normal - Psychiatric Exam Psychiatric exam: Normal Affect, Normal Mood - Skin Skin Exam: Dry, Intact, Normal Color, Warm Discharge Plan - Follow Up Plan Condition: FAIR Disposition: REHAB FACILITY/REHAB UNIT Additional Instructions: r foot wound doing well. no f/c, n/v/d. no pain. distla pms intact. final dx r great toe wound r/t dm2. uncontrollled dm2. f/u rmg/pmd in [place]. cont anbx x 7 days rted prn.
[2017-02-15 08:01] VITALS: BP 154/69; PULSE 63; RESP 18; TEMP 97.9
--- NOTE | 2017-02-15 08:13 | CP.PCM.PN ---
Subjective - Date & Time of Evaluation Date of Evaluation: 02/15/17 Time of Evaluation: 08:00 - Subjective Subjective: 71 yo diabetic male patient seen at bedside today w/ Dr. Zhang present regarding right hallux ulceration/cellulitis. Pt seen resting comfortably in bed at time of visit, pleasant and chatty. Denies any acute events overnight. Denies f/n/v/c/sob/cp. Objective - Vital Signs/Intake and Output Vital Signs (last 24 hours): Temp Pulse Resp BP Pulse Ox 97.9 F 63 18 154/69 H 98 02/15/17 08:00 02/15/17 08:00 02/15/17 08:00 02/15/17 08:00 02/15/17 08:00 - Medications Medications: Current Medications Aspirin (Aspirin Chewable) 81 mg PO DAILY [facility] Last Admin: 02/14/17 08:48 Dose: 81 mg Clopidogrel Bisulfate (Plavix) 75 mg PO DAILY [facility] Last Admin: 02/14/17 08:50 Dose: 75 mg Collagenase (Santyl) 1 applic TOP DAILY [facility] Last Admin: 02/14/17 11:27 Dose: 1 applic Enoxaparin Sodium (Lovenox) 40 mg SC DAILY [facility] PRN Reason: Protocol Last Admin: 02/14/17 08:51 Dose: 40 mg Fluticasone Propionate (Flonase) 1 spr RADHA BID [facility] Last Admin: 02/14/17 17:00 Dose: 1 spr Glipizide (Glucotrol Xl) 10 mg PO DAILY [facility] Last Admin: 02/14/17 08:49 Dose: 10 mg Vancomycin HCl 1 gm/ Sodium (Chloride) 250 mls @ 166.667 mls/hr IVPB Q12 [facility] Last Admin: 02/14/17 23:22 Dose: 166.667 mls/hr Clindamycin Phosphate 300 mg/ (Sodium Chloride) 102 mls @ 102 mls/hr IVPB 0530, 1130,1730,2330 [facility] Last Admin: 02/14/17 22:30 Dose: 102 mls/hr Insulin Human Regular (Humulin R) 0 units SC ACHS [facility] PRN Reason: Protocol Last Admin: 02/14/17 22:03 Dose: Not Given Lactobacillus Acidophilus (Bacid Acidophilus) 1 cap PO BID [facility] Last Admin: 02/14/17 17:00 Dose: 1 cap Ondansetron HCl (Zofran Tab) 4 mg PO Q6H PRN PRN Reason: Nausea/Vomiting Pantoprazole Sodium (Protonix Ec Tab) 40 mg PO DAILY [facility] Last Admin: 02/14/17 08:50 Dose: 40 mg Sitagliptin Phosphate (Januvia) 100 mg PO DAILY [facility] Last Admin: 02/14/17 08:49 Dose: 100 mg - Labs Labs: 02/14/17 05:40 02/14/17 05:40 PT 10.0 SECONDS (9.6-11.2) 02/12/17 12:00 INR 0.96 (0.92-1.08) 02/12/17 12:00 APTT 26.6 SECONDS (23.3-32.5) 02/12/17 12:00 - Constitutional Appears: Well, Non-toxic, No Acute Distress - Extremities Exam Additional comments: RLE exam: Dressing to the right foot foot appears c/d/i with no strikethrough noted. Neurovasc intact. Erythema and callor resolved - Neurological Exam Neurological Exam: Alert, Awake, Oriented x3 - Psychiatric Exam Psychiatric exam: Normal Affect, Normal Mood Assessment and Plan - Assessment and Plan (Free Text) Assessment: 71 yo diabetic male w/ ulceration right foot secondary to diabetic neuropathy ( cellulitis resolved) Plan: -Pt S&E at bedside w/ Dr. Zhang present -Chart labs and vitals reviewed: afebrile, WBC 6.1 -Wound cx (prelim): no growth after 24 hours -Xrays reviewed: (-) OM, no fx or dislocation, soft tissue swelling noted -Right LE arterial duplex:vascular stenosis confined to R dorsalis pedis artery -Dressing left intact today -WB to right heel as tolerated w/ surgical shoe -Discussed w/ primary, Garrick Hwang, CLIP [employer]ATER. Pt will nbe discharged to rehab today and will c/w abx x 7 days. Vascular workup as outpatient -Wound care: dressing to right foot to be changed daily. Cleanse w/ normal saline, apply santyl, damp gauze, cling -Stable per podiatry -Advised pt to f/u w/ his dado operator as outpatient
[2017-02-15] MEDS: Clindamycin 300 MG in Sodium Chloride 0.9% 100 ML IVPB SCH ×3 (08:42→16:29)
[2017-02-15] MEDS: Insulin Regular 100 units/ml SC SCH ×3 (08:43→16:30)
[2017-02-15] MEDS: Lactobacillus Acidophilus 500 MU Cap PO SCH ×2 (08:46→16:29)
[2017-02-15] MEDS: Pantoprazole 40 mg EC Tab PO SCH (08:46)
[2017-02-15] MEDS: Santyl Collagenase OINTMENT TOP SCH (08:46)
[2017-02-15] MEDS: Enoxaparin 40 mg Syringe SC SCH (08:46)
[2017-02-15] MEDS: GlipiZIDE 10 mg SR Tab PO SCH (08:47)
== END 2017-02-15 17:28 | DRG 74 ==
LOC: H.ER 11:05 → H.ERHOLD 13:00 → H.MEDSURG1 15:06
PROVIDERS: ADMIT Family Medicine; ATTEND Family Medicine
DX: E11.40 Type 2 diabetes mellitus with diabetic neuropathy, unspecified (principal); E11.22 Type 2 diabetes mellitus with diabetic chronic kidney disease; E11.621 Type 2 diabetes mellitus with foot ulcer; L03.115 Cellulitis of right lower limb; E11.65 Type 2 diabetes mellitus with hyperglycemia; L97.519 Non-pressure chronic ulcer of other part of right foot with unspecified severity; I12.9 Hypertensive chronic kidney disease with stage 1 through stage 4 chronic kidney disease, or unspecified chronic kidney disease; N18.9 Chronic kidney disease, unspecified; Z95.5 Presence of coronary angioplasty implant and graft; I25.10 Atherosclerotic heart disease of native coronary artery without angina pectoris; Z59.0 Homelessness; F17.200 Nicotine dependence, unspecified, uncomplicated; I70.201 Unspecified atherosclerosis of native arteries of extremities, right leg

== ENCOUNTER 2017-09-08 13:26 | Emergency (ER) | payer MEDICARE, MEDICAID ==
[2017-09-08 13:31] VITALS: BP 154/56; PULSE 89; RESP 17; TEMP 97.8; O2SAT 99; BMI 25.5
[2017-09-08] MEDS ORDERED: Sodium Chloride 0.9% 1,000 ML IV STA (13:46)
--- NOTE | 2017-09-08 13:52 | ED PDOC ---
HPI: General Adult Time Seen by Provider: 09/08/17 13:35 Chief Complaint (Nursing): Flu-like Symptoms Chief Complaint (Provider): Diarrhea History Per: Patient Onset/Duration Of Symptoms: Days (x 2) Current Symptoms Are (Timing): Still Present Additional Complaint(s): Kalia is a 72 year old patient with a past medical history of diabetes and hypertension who presents to the Emergency Department complaining of diarrhea for 2 days. Patient states he had 2 episodes of diarrhea while in bed. Denies abdominal pain, fever. Pt states he takes a lot of medication at home but does not remember names however denies heart attack, stroke, and use of blood thinner. PCD: Provider MAYA Past Medical History Reviewed: Historical Data, Nursing Documentation, Vital Signs Vital Signs: Last Vital Signs Temp 97.8 F 09/08/17 13:31 Pulse 89 09/08/17 13:31 Resp 17 09/08/17 13:31 BP 154/56 H 09/08/17 13:31 Pulse Ox 99 09/08/17 13:57 - Medical History PMH: Diabetes, HTN, Kidney Stones, Chronic Kidney Disease (KIDNEY STONES) Denies: Arthritis, HIV - Surgical History Surgical History: Cholecystectomy, Coronary Stent, Tonsillectomy - Family History Family History: States: Unknown Family Hx, Diabetes - Living Arrangements Living Arrangements: With Family - Social History Current smoker - smoking cessation education provided: No - Home Medications Home Medications: Ambulatory Orders Medication Instructions Recorded Pantoprazole Sodium [Protonix] 40 mg PO DAILY 01/26/16 SITagliptin [Januvia] 100 mg PO DAILY 01/26/16 Aspirin [Aspirin Chewable] 81 mg PO DAILY #0 chew 01/30/16 Clopidogrel [Plavix] 75 mg PO DAILY #0 tab 01/30/16 Glimepiride [amaRYL] 4 mg PO DAILY 02/24/16 Ondansetron [Zofran Tab] 4 mg PO Q6H PRN #10 tab 08/19/16 Insulin Human Regular [Novolin R] 15 units SQ DAILY 02/12/17 Clindamycin Phosphate/D5w 300 mg IV Q6 #28 piggyback 02/15/17 [Clindamycin-D5w 300 mg/50 ml] Collagenase [Santyl] 1 applic TOP DAILY 02/15/17 Enoxaparin [Lovenox] 40 mg SC DAILY syr 02/15/17 Fluticasone Propionate [Flonase] 1 spr RADHA BID bottle 02/15/17 Insulin Human Regular [HumuLIN R] 0 units SC ACHS ml 02/15/17 Lactobacillus Acidophilus [Bacid 1 cap PO BID cap 02/15/17 Acidophilus] Vancomycin/0.9 % Sod Chloride 1 gm IV DAILY #7 plast..bag 02/15/17 [Vanco 1 Gram/250 ml-0.9% NaCl] Dicyclomine [Bentyl] 20 mg PO TID #30 tab 08/19/17 - Allergies Allergies/Adverse Reactions: Allergies Allergy/AdvReac Type Severity Reaction Status Date / Time No Known Allergies Allergy Verified 03/19/16 09:30 Review of Systems ROS Statement: Except As Marked, All Systems Reviewed And Found Negative Constitutional: Negative for: Fever Cardiovascular: Negative for: Light Headedness Gastrointestinal: Positive for: Diarrhea. Negative for: Abdominal Pain Physical Exam - Reviewed Nursing Documentation Reviewed: Yes Vital Signs Reviewed: Yes - Physical Exam Appears: Positive for: Well, Non-toxic Head Exam: Positive for: NORMAL INSPECTION Skin: Positive for: Normal Color, Warm, DRY Eye Exam: Positive for: Normal appearance ENT: Positive for: Normal ENT Inspection Neck: Positive for: Supple Cardiovascular/Chest: Positive for: Regular Rate, Rhythm Respiratory: Positive for: Normal Breath Sounds. Negative for: Respiratory Distress Gastrointestinal/Abdominal: Positive for: Normal Exam, Bowel Sounds. Negative for: Tenderness Back: Positive for: Normal Inspection Extremity: Positive for: Normal ROM. Negative for: Deformity Neurologic/Psych: Positive for: Alert, Oriented, Gait - Laboratory Results Result Diagrams: 09/08/17 14:10 09/08/17 14:10 - ECG O2 Sat by Pulse Oximetry: 99 (RA) Pulse Ox Interpretation: Normal Medical Decision Making Medical Decision Making: Time: 13:46 Plan: - CMP - CBC - Sodium Chloride 0.9% 1,000 ml IV 1,000 mls/hr - Stool Culture - Accucheck - C-Diff Toxin A B Labs normal. Scribe Attestation: Documented by Keegan Lester, acting as a scribe for Rosalia Cochran PA-C. Provider Scribe Attestation: All medical record entries made by the Scribe were at my direction and personally dictated by me. I have reviewed the chart and agree that the record accurately reflects my personal performance of the history, physical exam, medical decision making, and the department course for this patient. I have also personally directed, reviewed, and agree with the discharge instructions and disposition. Disposition - Clinical Impression Clinical Impression: Diarrhea - Patient ED Disposition Is Patient to be Admitted: No Counseled Patient/Family Regarding: Diagnosis, Need For Followup - Disposition Disposition: Routine/Home Disposition Time: 15:05 Condition: GOOD Instructions: Acute Diarrhea (ED) Forms: [employer] (Tunisian)
[2017-09-08 14:25] LABS: BASO % 0.4 % (0.0-2.0); EOS % 0.4 % (0.0-4.0); HEMATOCRIT 43.9 % (35.0-51.0); LYMPH # 0.9 K/uL (1.0-4.3); LYMPH % 10.3 % (20.0-40.0); MEAN CORPUSCULAR HEMOGLOBIN 22.6 pg (27.0-31.0); MEAN CORPUSCULAR HGB CONC 31.4 g/dL (33.0-37.0); MEAN PLATELET VOLUME 9.2 fl (7.2-11.7); MONO # 0.7 K/uL (0.0-0.8); MONO % 8.7 % (0.0-10.0); NEUT # 6.7 K/uL (1.8-7.0); NEUT % 80.2 % (50.0-75.0); NRBC % 0.1 % (0.0-0.0); RED CELL DISTRIBUTION WIDTH 15.2 % (11.5-14.5); WHITE BLOOD COUNT 8.4 K/uL (4.8-10.8)
[2017-09-08 14:35] LABS: ALB/GLOB RATIO 1.2 (1.0-2.1); ALKALINE PHOSPHATASE 77 U/L (38-126); ALT/SGPT 40 U/L (21-72); AST/SGOT 33 U/L (17-59); BILIRUBIN,TOTAL 0.4 mg/dl (0.2-1.3); BLOOD UREA NITROGEN 23 mg/dl (9-20); CALCIUM 8.8 mg/dL (8.4-10.2); CARBON DIOXIDE 26 mmol/L (22-30); CHLORIDE 103 mmol/L (98-107); GFR AFRICAN-AMERICAN > 60; GLUCOSE,RANDOM 166 mg/dL (75-110); POTASSIUM 3.9 MMOL/L (3.6-5.0); SODIUM 142 mmol/l (132-148); TOTAL PROTEIN 7.7 G/DL (6.3-8.2)
== END 2017-09-08 15:44 | disposition home or self-care (01) ==
LOC: H.ER 13:26
DX: R19.7 Diarrhea, unspecified (principal); E11.22 Type 2 diabetes mellitus with diabetic chronic kidney disease; I12.9 Hypertensive chronic kidney disease with stage 1 through stage 4 chronic kidney disease, or unspecified chronic kidney disease; Z79.82 Long term (current) use of aspirin; Z87.442 Personal history of urinary calculi; Z95.5 Presence of coronary angioplasty implant and graft
CPT/HCPCS: 80053; 85025; 96360; 99284; J7040

== ENCOUNTER 2017-10-03 17:31 | Emergency (ER) | payer MEDICARE, MEDICAID ==
[2017-10-03 17:32] VITALS: BMI 25.5
[2017-10-03 17:54] VITALS: RESP 18; O2SAT 100
[2017-10-03] MEDS ORDERED: Sodium Chloride 0.9% 1,000 ML IV STA ×2 (18:41→19:23)
--- NOTE | 2017-10-03 19:30 | ED PDOC ---
HPI: General Adult Time Seen by Provider: 10/03/17 17:57 Chief Complaint (Nursing): Abdominal Pain History Per: Patient Additional Complaint(s): Pt. states last night he developed nausea and vomiting with non-radiating epigastric pain. Reports also that he has a hx of DM but has not taken his meds in 10 days. States he is unable to get his refills as insurance will cover it until next month. Denies chest pain, diarrhea, fever, hematemesis, SOB, melena, BRBPR. Past Medical History Reviewed: Historical Data, Nursing Documentation, Vital Signs Vital Signs: Last Vital Signs Temp 98.9 F 10/03/17 17:52 Pulse 89 10/03/17 17:52 Resp 18 10/03/17 17:52 BP 167/66 H 10/03/17 17:52 Pulse Ox 100 10/03/17 17:52 - Medical History PMH: Diabetes, HTN, Kidney Stones, Chronic Kidney Disease (KIDNEY STONES) Denies: Arthritis, HIV - Surgical History Surgical History: Cholecystectomy, Coronary Stent, Tonsillectomy - Family History Family History: States: Diabetes - Home Medications Home Medications: Ambulatory Orders Medication Instructions Recorded Pantoprazole Sodium [Protonix] 40 mg PO DAILY 01/26/16 SITagliptin [Januvia] 100 mg PO DAILY 01/26/16 Aspirin [Aspirin Chewable] 81 mg PO DAILY #0 chew 01/30/16 Clopidogrel [Plavix] 75 mg PO DAILY #0 tab 01/30/16 Glimepiride [amaRYL] 4 mg PO DAILY 02/24/16 Ondansetron [Zofran Tab] 4 mg PO Q6H PRN #10 tab 08/19/16 Insulin Human Regular [Novolin R] 15 units SQ DAILY 02/12/17 Clindamycin Phosphate/D5w 300 mg IV Q6 #28 piggyback 02/15/17 [Clindamycin-D5w 300 mg/50 ml] Collagenase [Santyl] 1 applic TOP DAILY 02/15/17 Enoxaparin [Lovenox] 40 mg SC DAILY syr 02/15/17 Fluticasone Propionate [Flonase] 1 spr RADHA BID bottle 02/15/17 Insulin Human Regular [HumuLIN R] 0 units SC ACHS ml 02/15/17 Lactobacillus Acidophilus [Bacid 1 cap PO BID cap 02/15/17 Acidophilus] Vancomycin/0.9 % Sod Chloride 1 gm IV DAILY #7 plast..bag 02/15/17 [Vanco 1 Gram/250 ml-0.9% NaCl] Dicyclomine [Bentyl] 20 mg PO TID #30 tab 08/19/17 - Allergies Allergies/Adverse Reactions: Allergies Allergy/AdvReac Type Severity Reaction Status Date / Time No Known Allergies Allergy Verified 10/03/17 17:52 Review of Systems ROS Statement: Except As Marked, All Systems Reviewed And Found Negative Gastrointestinal: Positive for: Nausea, Vomiting, Abdominal Pain Physical Exam - Reviewed Nursing Documentation Reviewed: Yes Vital Signs Reviewed: Yes - Physical Exam Appears: Positive for: Well, Non-toxic, No Acute Distress Head Exam: Positive for: ATRAUMATIC, NORMAL INSPECTION, NORMOCEPHALIC Skin: Positive for: Normal Color, Warm. Negative for: Rash Eye Exam: Positive for: EOMI, Normal appearance, PERRL ENT: Positive for: Normal ENT Inspection Neck: Positive for: Normal, Painless ROM Cardiovascular/Chest: Positive for: Regular Rate, Rhythm Respiratory: Positive for: CNT, Normal Breath Sounds Gastrointestinal/Abdominal: Positive for: Normal Exam, Bowel Sounds, Soft. Negative for: Tenderness Back: Positive for: Normal Inspection. Negative for: L CVA Tenderness, R CVA Tenderness Extremity: Positive for: Normal ROM Neurologic/Psych: Positive for: Alert, Oriented - ECG O2 Sat by Pulse Oximetry: 100 - Progress ED Course And Treament: Labs ordered. EKG ordered. Zofran 4mg IV, pepcid 20mg IV, IV NS bolus x 2 ordered. FSBS: 310 Disposition - Clinical Impression Clinical Impression: Vomiting - Patient ED Disposition Is Patient to be Admitted: Transfer of Care (Signed out to Hiren REDDY pending disposition and re-evaluation.) - Disposition Disposition Time: 20:00 Condition: STABLE
[2017-10-03 19:36] LABS: ABG ALLEN TEST YES; ARTERIAL BLOOD GAS HCO3 28.4 mmol/L (21-28); ARTERIAL BLOOD GAS PH 7.47 (7.35-7.45); ARTERIAL BLOOD GAS PO2 80 mm/Hg (80-100)
[2017-10-03 20:04] LABS: BASO # 0.1 K/uL (0.0-0.2); EOS # 0.2 K/uL (0.0-0.7); EOS % 1.5 % (0.0-4.0); HEMATOCRIT 46.5 % (35.0-51.0); LYMPH # 1.8 K/uL (1.0-4.3); LYMPH % 14.6 % (20.0-40.0); MEAN CELL VOLUME 71.5 fl (80.0-94.0); MEAN CORPUSCULAR HEMOGLOBIN 22.3 pg (27.0-31.0); MEAN CORPUSCULAR HGB CONC 31.1 g/dL (33.0-37.0); MEAN PLATELET VOLUME 9.3 fl (7.2-11.7); MONO # 0.9 K/uL (0.0-0.8); MONO % 7.7 % (0.0-10.0); NEUT # 9.2 K/uL (1.8-7.0); NEUT % 75.2 % (50.0-75.0); NRBC % 0.2 % (0.0-0.0); RED CELL DISTRIBUTION WIDTH 15.1 % (11.5-14.5); WHITE BLOOD COUNT 12.3 K/uL (4.8-10.8)
[2017-10-03 20:22] LABS: ALB/GLOB RATIO 1.2 (1.0-2.1); ALCOHOL SERUM < 10 mg/dl (0-10); ALKALINE PHOSPHATASE 124 U/L (38-126); ALT/SGPT 33 U/L (21-72); AST/SGOT 20 U/L (17-59); BILIRUBIN,TOTAL 0.7 mg/dl (0.2-1.3); BLOOD UREA NITROGEN 19 mg/dl (9-20); CALCIUM 9.4 mg/dL (8.4-10.2); CARBON DIOXIDE 25 mmol/L (22-30); CHLORIDE 99 mmol/L (98-107); GFR AFRICAN-AMERICAN > 60; GLUCOSE,RANDOM 341 mg/dL (75-110); LIPASE 144 U/L (23-300); POTASSIUM 4.6 MMOL/L (3.6-5.0); SODIUM 135 mmol/l (132-148)
--- NOTE | 2017-10-03 21:40 | US ---
EXAM: US Abdomen Complete EXAM DATE/TIME: 10/03/2017 6:42 PM CLINICAL HISTORY: 72 years old, male; Pain; Abdominal pain; Epigastric; Additional info: Epigastric abdominal pain TECHNIQUE: Real-time ultrasound of the abdomen (complete) with image documentation. COMPARISON: Prior images are not available for review. FINDINGS: Liver: There is diffuse increased echogenicity to liver.There is hepatopedal flow in the main portal vein. The liver is enlarged. Gallbladder: Gallbladder is surgically absent. Common bile duct: Common bile duct measures 5 mm in diameter. Pancreas: Pancreas is partially obscured by bowel gas. Visualized portions echogenic. Kidneys: Kidneys are unremarkable.Spleen is unremarkable. Spleen: See above. Aorta: Visualized portions of the aorta and inferior vena cava are unremarkable. Inferior vena cava: See above. IMPRESSION: Mildly enlarged fatty liver; prior cholecystectomy; limited evaluation of pancreas due to body habitus and bowel gas
[2017-10-03 21:43] LABS: RBC URINE 1 /hpf (0-3); URINE BILIRUBIN NEGATIVE (NEGATIVE); URINE BLOOD NEGATIVE (NEGATIVE); URINE COLOR YELLOW (YELLOW); URINE GLUCOSE (UA) >=500 mg/dL (Normal); URINE KETONE 20 mg/dL (NEGATIVE); URINE LEUKOCYTE ESTERASE NEG Leu/uL (Negative); URINE PROTEIN 100 mg/dL (NEGATIVE); URINE UROBILINOGEN 0.2-1.0 mg/dL (0.2-1.0); WBC URINE 1 /hpf (0-5)
[2017-10-03] MEDS ORDERED: Insulin Regular 100 units/ml SC STA (21:54)
--- NOTE | 2017-10-03 21:57 | ED PDOC ---
- Laboratory Results Result Diagrams: 10/03/17 19:44 10/03/17 19:44 - ECG O2 Sat by Pulse Oximetry: 100 - Progress ED Course And Treament: pt signed out to advertising writer pending BS improvement and US results-presented to ED c/ o epigastric pain with nasuea and elevated BS-insulin dependent. Re-evaluation Time: 21:56 Condition: Improved Medical Decision Making Medical Decision Making: US results: FINDINGS: Liver: There is diffuse increased echogenicity to liver.There is hepatopedal flow in the main portal vein. The liver is enlarged. Gallbladder: Gallbladder is surgically absent. Common bile duct: Common bile duct measures 5 mm in diameter. Pancreas: Pancreas is partially obscured by bowel gas. Visualized portions echogenic. Kidneys: Kidneys are unremarkable.Spleen is unremarkable. Spleen: See above. Aorta: Visualized portions of the aorta and inferior vena cava are unremarkable. Inferior vena cava: See above. IMPRESSION: Mildly enlarged fatty liver; prior cholecystectomy; limited evaluation of pancreas due to body habitus and bowel gas Thank you for allowing us to participate in the care of your patient. Dictated and Authenticated by: Petra Rocha MD 10/03/2017 9:40 PM Eastern Time ([place] & [place]) BS after two liters of NS 285. will give 4untis of insulin and re-eval BS is improving. pt advised to f.u with pmd givne Rx for insulin. Disposition - Clinical Impression Clinical Impression: Vomiting - POA Present On Arrival: None - Disposition Referrals: [facility] [Outside] Disposition: Routine/Home Disposition Time: 23:36 Condition: STABLE Prescriptions: SITagliptin [Januvia] 100 mg PO DAILY #30 tab Instructions: Diabetes Mellitus Type 1 in Adults (ED) Forms: [employer] (Sinhala) Progress Note - Review of Symptoms General: No: Chills, Night Sweats, Fatigue, Malaise, Appetite, Other HEENT: No: Head Aches, Visual Changes, Eye Pain, Ear Pain, Dysphasia, Sinus Congestion, Post Nasal Drip, Sore Throat, Other Pulmonary: No: Dyspnea, Cough, Pleuritic Chest Pain, Other Cardiovascular: No: Chest Pain, Palpitations, Orthopnea, Paroxysmal Noc. Dyspnea , Edema, Light Headedness, Other Gastrointestinal: No: Nausea, Vomiting, Abdominal Pain, Diarrhea, Constipation, Melena, Hematochezia, Other Genitourinary: No: Dysuria, Frequency, Incontinence, Hematuria, Retention, Other Musculoskeletal: No: Muscle Pain, Joint Pain, Other Neurological: No: Weakness, Numbness, Incoordination, Change in speech, Confusion, Seizures, Other
[2017-10-04 00:07] VITALS: BP 148/87; PULSE 86; TEMP 98.2
--- NOTE | 2017-10-04 08:44 | RAD ---
HISTORY: abdominal pain COMPARISON: Complete abdomen with chest 09/13/2016. FINDINGS: LUNGS: No active pulmonary disease. PLEURA: No significant pleural effusion identified, no pneumothorax apparent. CARDIOVASCULAR: Normal. OSSEOUS STRUCTURES: No significant abnormalities. VISUALIZED UPPER ABDOMEN: Normal. OTHER FINDINGS: None. IMPRESSION: No interval acute cardiopulmonary disease appreciated.
--- NOTE | 2017-10-04 17:48 | CARD ---
APPROVED REPORT EKG Measurement Heart [id number] ID [id number] <Conclusion> Normal sinus rhythm Possible Left atrial enlargement Septal infarct, age undetermined Possible Inferior infarct, age undetermined Abnormal ECG
== END 2017-10-04 00:07 | disposition home or self-care (01) ==
LOC: H.ER 17:31
DX: R11.10 Vomiting, unspecified (principal); I12.9 Hypertensive chronic kidney disease with stage 1 through stage 4 chronic kidney disease, or unspecified chronic kidney disease; K76.0 Fatty (change of) liver, not elsewhere classified; Z79.82 Long term (current) use of aspirin; Z90.49 Acquired absence of other specified parts of digestive tract; Z95.5 Presence of coronary angioplasty implant and graft
CPT/HCPCS: 71010; 76700; 80053; 81003; 82803; 82948; 83690; 85025; 93005; 96374; 96375; 99283; G0480; J2405; J7040

== ENCOUNTER 2017-11-25 16:44 | Inpatient (IN) | payer MEDICARE, MEDICAID ==
[2017-11-25 16:45] VITALS: BMI 25.5
--- NOTE | 2017-11-25 17:10 | ED PDOC ---
HPI: Abdomen Time Seen by Provider: 11/25/17 16:55 Chief Complaint (Nursing): GI Problem Chief Complaint (Provider): body aches, diarrhea, fever History Per: Patient Additional Complaint(s): 72-year-old non-domiciled male with history of diabetes presents to emergency department complaining of fever, chills, diarrhea, body aches and coughing that started yesterday. Patient states "I think I have the flu." Patient has not taken any medication for relief of symptoms. He states that he takes medication daily for diabetes. He doesn't have the name of the medication. Upon arrival to ED patient denies any wrist pain, shortness of breath or dyspnea on exertion. PMD: none Past Medical History Reviewed: Historical Data, Nursing Documentation, Vital Signs Vital Signs: Last Vital Signs Temp 97.7 F 11/25/17 16:47 Pulse 98 H 11/25/17 16:47 Resp 18 11/25/17 16:47 BP 139/64 11/25/17 16:47 Pulse Ox 99 11/25/17 19:30 - Medical History PMH: Diabetes, HTN, Kidney Stones - Surgical History Surgical History: Cholecystectomy, Coronary Stent, Tonsillectomy - Family History Family History: States: Diabetes - Living Arrangements Living Arrangements: Other (non-domiciled) - Social History Current smoker - smoking cessation education provided: No Alcohol: None Drugs: Denies - Home Medications Home Medications: Ambulatory Orders Medication Instructions Recorded Aspirin [Ecotrin] 81 mg PO DAILY 11/25/17 Atorvastatin [Lipitor] 40 mg PO HS 11/25/17 Esomeprazole Magnesium [Nexium] 40 mg PO DAILY 11/25/17 Glipizide [Glipizide Xl] 10 mg PO BID 11/25/17 Insulin Glargine, Recombina 28 unit SC DAILY 11/25/17 [Lantus] Lisinopril [Zestril] 20 mg PO DAILY 11/25/17 SITagliptin [Januvia] 100 mg PO DAILY 11/25/17 Tamsulosin [Flomax] 0.4 mg PO DAILY 11/25/17 - Allergies Allergies/Adverse Reactions: Allergies Allergy/AdvReac Type Severity Reaction Status Date / Time No Known Allergies Allergy Verified 11/25/17 16:47 Review of Systems ROS Statement: Except As Marked, All Systems Reviewed And Found Negative Constitutional: Positive for: Fever, Chills, Other (body aches) Cardiovascular: Negative for: Chest Pain Respiratory: Positive for: Cough Gastrointestinal: Positive for: Nausea. Negative for: Vomiting, Abdominal Pain , Diarrhea Genitourinary Male: Negative for: Dysuria Physical Exam - Reviewed Nursing Documentation Reviewed: Yes Vital Signs Reviewed: Yes - Physical Exam Appears: Positive for: Well, Non-toxic, No Acute Distress Skin: Negative for: Rash Eye Exam: Positive for: Normal appearance Cardiovascular/Chest: Positive for: Regular Rate, Rhythm Respiratory: Positive for: Normal Breath Sounds. Negative for: Wheezing, Respiratory Distress Gastrointestinal/Abdominal: Positive for: Soft. Negative for: Tenderness, Distended, Guarding, Rebound Extremity: Positive for: Normal ROM Neurologic/Psych: Positive for: Alert, Oriented, Gait (steady) - ECG Interpretation Of ECG: Sinus rhythm with first-degree block 93 bpm, reviewed by PA and ED attending O2 Sat by Pulse Oximetry: 99 Pulse Ox Interpretation: Normal - Other Rad CXR X-Ray: Interpreted by Me, Viewed By Me X-Ray Interpretation: no acute finding Medical Decision Making Medical Decision Makin-year-old non-domicile male with flulike symptoms Plan: PO tylenol and motrin IVF CBC CMP Blood culture Flu swab UA and culture VBG CXR EKG 7:15 pm - patient is requesting food tray which was given. Disposition - Clinical Impression Clinical Impression: Flu-like symptoms - Patient ED Disposition Is Patient to be Admitted: Transfer of Care - Disposition Disposition: Transfer of Care Disposition Time: 20:00 Condition: STABLE Forms: [employer] (Guatemalan) Patient Signed Over To: Radhika Hatfield Handoff Comments: Signed out pending diagnostic testing results, reevaluation and final disposition
[2017-11-25] MEDS ORDERED: Sodium Chloride 0.9% 1,000 ML IV STA ×2 (17:18→22:24)
[2017-11-25 18:58] LABS: SQUAMOUS EPITHIAL < 1 /hpf (0-5); URINE BACTERIA RARE (<OCC); URINE BILIRUBIN NEGATIVE (NEGATIVE); URINE BLOOD NEGATIVE (NEGATIVE); URINE CLARITY SLIGHTY-CLOUDY (Clear); URINE COLOR YELLOW (YELLOW); URINE GLUCOSE (UA) >=500 mg/dL (Normal); URINE LEUKOCYTE ESTERASE SMALL Leu/uL (Negative); URINE NITRATE NEGATIVE (NEGATIVE); URINE PROTEIN 30 mg/dL (NEGATIVE); URINE UROBILINOGEN 0.2-1.0 mg/dL (0.2-1.0)
[2017-11-25 20:13] LABS: VENOUS BLOOD GAS PCO2 50 mmHg (40-60); VENOUS BLOOD GAS PO2 27 mm/Hg (30-55); VENOUS BLOOD PH 7.35 (7.32-7.43)
[2017-11-25 20:53] LABS: BASO % 0.3 % (0.0-2.0); EOS # 0.2 K/uL (0.0-0.7); EOS % 1.6 % (0.0-4.0); HEMOGLOBIN 15.2 g/dL (12.0-18.0); LYMPH # 0.6 K/uL (1.0-4.3); LYMPH % 5.5 % (20.0-40.0); MEAN CORPUSCULAR HEMOGLOBIN 22.6 pg (27.0-31.0); MEAN CORPUSCULAR HGB CONC 31.8 g/dL (33.0-37.0); MEAN PLATELET VOLUME 9.4 fl (7.2-11.7); MONO # 0.4 K/uL (0.0-0.8); MONO % 3.8 % (0.0-10.0); NEUT # 9.4 K/uL (1.8-7.0); NEUT % 88.8 % (50.0-75.0); PLATELET COUNT 216 K/uL (130-400); RBC 6.75 Mil/uL (4.40-5.90); RED CELL DISTRIBUTION WIDTH 15.3 % (11.5-14.5); WHITE BLOOD COUNT 10.6 K/uL (4.8-10.8)
[2017-11-25 21:08] LABS: ALB/GLOB RATIO 1.2 (1.0-2.1); ALBUMIN 4.5 g/dL (3.5-5.0); ALT/SGPT 38 U/L (21-72); AST/SGOT 27 U/L (17-59); BLOOD UREA NITROGEN 26 mg/dl (9-20); CALCIUM 9.7 mg/dL (8.4-10.2); GFR AFRICAN-AMERICAN > 60; GFR NON-AFRICAN AMERICAN > 60; MAGNESIUM 1.9 MG/DL (1.6-2.3)
[2017-11-25] MEDS ORDERED: Iohexol 300 100 ML IJ ONE (21:52)
[2017-11-25] MEDS ORDERED: Sodium Chloride 0.9% 50 ML IV ONE (21:52)
[2017-11-25 22:08] LABS: BANDS 4 % (0-2); EOSINOPHIL 2 % (0-7); LYMPHOCYTE 7 % (20-50); MONOCYTE 6 % (0-10); NEUTROPHIL 81 % (42-75); PLATELET ESTIMATE NORMAL (NORMAL); TOTAL CELLS COUNTED 100
[2017-11-25 22:09] LABS: BURR CELLS SLIGHT; HYPOCHROMIC SLIGHT; MICROCYTOSIS SLIGHT; OVALOCYTES SLIGHT
--- NOTE | 2017-11-26 00:19 | CT ---
EXAM: CT Abdomen and Pelvis With Intravenous Contrast CLINICAL HISTORY: 72 years old, male; Pain and signs and symptoms; Fever and vomiting; Abdominal pain; Generalized; Prior surgery; Surgery date: 6+ months; Surgery type: Gb removed; Additional info: Abdominal pain/fever. Sent phy. Doc. TECHNIQUE: Axial computed tomography images of the abdomen and pelvis with intravenous contrast. All CT scans at this facility use one or more dose reduction techniques, viz.: automated exposure control; ma/kV adjustment per patient size (including targeted exams where dose is matched to indication; i.e. head); or iterative reconstruction technique. Coronal and sagittal reformatted images were created and reviewed. CONTRAST: 90 mL of [id number] administered intravenously. COMPARISON: CT - ABD PELVIS PO IV CONTRAST 2016-05-01 07:05 FINDINGS: Lower thorax: Hypoventilatory changes. ABDOMEN: Liver: Fatty infiltration of the liver. Gallbladder and bile ducts: Status post cholecystectomy. Approximately 7 mm calculus in the common bile duct at the level of the pancreas, this is visualized on the prior study dated 05/01/2016. Pancreas: No acute abnormality as visualized. Spleen: No splenomegaly. Adrenals: No acute abnormality as visualized. Kidneys and ureters: Nonspecific perinephric stranding. Symmetric emhancement. No hydronephrosis. Stomach and bowel: Limited evaluation without enteric contrast. Hiatal hernia with fluid within. Stomach distended with mottled material. Fluid throughout small bowel. Diverticulosis. No obstruction. No definitive focus of mucosal thickening. Appendix: No findings to suggest acute appendicitis. PELVIS: Bladder: Bladder wall thickening. Correlate clinically to exclude infection. Reproductive: Enlarged heterogeneous prostate. Correlate clinically. ABDOMEN and PELVIS: Intraperitoneal space: No free air. No significant fluid collection. Bones/joints: Degenerative changes. Mild vertebral body height loss. Soft tissues: Minimal fat-containing bilat umbilical and bilateral inguinal hernias. Vasculature: Atherosclerosis. No abdominal aortic aneurysm. Lymph nodes: No acute abnormality as visualized. IMPRESSION: Choledocholithiasis. Approximately 7 mm calculus in the common bile duct at the level of the pancreas, this is visualized on the prior study dated 05/01/2016. Patient is status post cholecystectomy. Followup evaluation necessary. Limited evaluation of bowel without enteric contrast. Hiatal hernia with fluid within. Stomach distended with mottled material. Fluid throughout small bowel. Diverticulosis. Bladder wall thickening. Correlate clinically to exclude infection. Enlarged heterogeneous prostate. Correlate clinically. Additional details/findings as above.
--- NOTE | 2017-11-26 00:54 | ED PDOC ---
- Laboratory Results Result Diagrams: 11/25/17 20:47 11/25/17 20:47 - ECG O2 Sat by Pulse Oximetry: 99 - Progress ED Course And Treament: FLU NEGATIVE NS 1 LITER X [address] abd/pelvis: IMPRESSION: Choledocholithiasis. Approximately 7 mm calculus in the common bile duct at the level of the pancreas, this is visualized on the prior study dated 05/01/2016. Patient is status post cholecystectomy. Followup evaluation necessary. Limited evaluation of bowel without enteric contrast. Hiatal hernia with fluid within. Stomach distended with mottled material. Fluid throughout small bowel. Diverticulosis. Bladder wall thickening. Correlate clinically to exclude infection. Enlarged heterogeneous prostate. Correlate clinically. Additional details/findings as above. Thank you for allowing us to participate in the care of your patient. Dictated and Authenticated by: Parvin Miramontes MD D/W CHERYLE POWERS. PATIENT TO BE ADMITTED FOR OBSERVATION Disposition - Clinical Impression Clinical Impression: Gastroenteritis, Choledocholithiasis - POA Present On Arrival: None - Disposition Disposition: Hospitalized as Observation Patient Disposition Time: 01:20 Condition: STABLE Forms: [employer] (Greenlandic)
[2017-11-26] MEDS: Sodium Chloride 0.45% 1,000 ML IV SCH ×2 (05:16→16:40)
--- NOTE | 2017-11-26 08:15 | CP.PCM.HP ---
History of Present Illness - History of Present Illness History of Present Illness: pt admitted for diarrhea. no f/c, n/v. no abd pain. no blood in stool. pt has been having constant bm overnight prompting the admission. bw and ct reviewed. no complaints at present. immodium w/ relief. Present on Admission - Present on Admission Any Indicators Present on Admission: No Review of Systems - Gastrointestinal Gastrointestinal: As Per HPI, Diarrhea Past Patient History - Infectious Disease Hx of Infectious Diseases: None - Past Medical History & Family History Past Medical History?: Yes - Past Social History Smoking Status: Heavy Smoker > 10 Cigarettes Daily - CARDIAC Hx Hypertension: Yes - PULMONARY Hx Respiratory Disorders: No - NEUROLOGICAL Hx Neurological Disorder: No - HEENT Hx HEENT Problems: Yes Hx Cataracts: Yes - RENAL Hx Kidney Stones: Yes - ENDOCRINE/METABOLIC Hx Diabetes Mellitus Type 2: Yes - HEMATOLOGICAL/ONCOLOGICAL Hx Blood Disorders: No - INTEGUMENTARY Hx Dermatological Problems: No - MUSCULOSKELETAL/RHEUMATOLOGICAL Hx Falls: No - GASTROINTESTINAL Hx Gastrointestinal Disorders: Yes Hx Gastroesophageal Reflux: Yes - GENITOURINARY/GYNECOLOGICAL Hx Genitourinary Disorders: No - PSYCHIATRIC Hx Substance Use: No - SURGICAL HISTORY Hx Cholecystectomy: Yes Hx Coronary Stent: Yes Hx Tonsillectomy: Yes - ANESTHESIA Hx Anesthesia: Yes Hx Anesthesia Reactions: No Hx Malignant Hyperthermia: No Meds Allergies/Adverse Reactions: Allergies Allergy/AdvReac Type Severity Reaction Status Date / Time No Known Allergies Allergy Verified 11/25/17 16:47 Physical Exam - Constitutional Appears: Well, Non-toxic, No Acute Distress - Head Exam Head Exam: ATRAUMATIC, NORMAL INSPECTION, NORMOCEPHALIC - Eye Exam Eye Exam: EOMI, Normal appearance, PERRL Pupil Exam: NORMAL ACCOMODATION, PERRL - ENT Exam ENT Exam: Mucous Membranes Moist, Normal Exam - Neck Exam Neck exam: Positive for: Normal Inspection - Respiratory Exam Respiratory Exam: Clear to Auscultation Bilateral, NORMAL BREATHING PATTERN - Cardiovascular Exam Cardiovascular Exam: REGULAR RHYTHM, RRR, +S1, +S2 - GI/Abdominal Exam GI & Abdominal Exam: Normal Bowel Sounds, Soft. absent: Tenderness - Extremities Exam Extremities exam: Positive for: full ROM, normal capillary refill, normal inspection, pedal pulses present - Back Exam Back exam: FULL ROM, NORMAL INSPECTION - Neurological Exam Neurological exam: Alert, CN II-XII Intact, Normal Gait, Oriented x3, Reflexes Normal - Psychiatric Exam Psychiatric exam: Normal Affect, Normal Mood - Skin Skin Exam: Dry, Intact, Normal Color, Warm Results - Vital Signs Recent Vital Signs: Last Vital Signs Temp 98.1 F 11/26/17 04:42 Pulse 96 H 11/26/17 04:42 Resp 20 11/26/17 04:42 BP 145/73 11/26/17 04:42 Pulse Ox 96 11/26/17 04:42 - Labs Result Diagrams: 11/25/17 20:47 11/25/17 20:47 Labs: Laboratory Results - last 24 hr 11/25/17 11/25/17 11/25/17 18:30 18:32 18:56 WBC RBC Hgb Hct MCV MCH MCHC RDW Plt Count MPV Neut % (Auto) Lymph % (Auto) [place] % (Auto) Eos % (Auto) Baso % (Auto) Neut # (Auto) Lymph # (Auto) [place] # (Auto) Eos # (Auto) Baso # (Auto) Neutrophils % (Manual) Band Neutrophils % Lymphocytes % (Manual) Monocytes % (Manual) Eosinophils % (Manual) Platelet Estimate Hypochromasia (manual) Microcytosis (manual) Ovalocytes [place] Cells pO2 27 L VBG pH 7.35 VBG pCO2 50 VBG HCO3 24.3 VBG Total CO2 29.1 H VBG O2 Sat (Calc) 55.9 VBG Base Excess 1.0 VBG Potassium 4.8 Sodium 138.0 Chloride 101.0 Glucose 225 H Lactate 1.8 FiO2 21.0 Potassium Carbon Dioxide Anion Gap BUN Creatinine Est GFR ( Amer) Est GFR (Non-Af Amer) POC Glucose (mg/dL) 278 H Random Glucose Calcium Magnesium Total Bilirubin AST ALT Alkaline Phosphatase Troponin I Total Protein Albumin Globulin Albumin/Globulin Ratio Lipase Venous Blood Potassium 4.8 Urine Color Yellow Urine Clarity Slighty-cloudy Urine pH 5.0 Ur Specific [place] 1.023 Urine Protein 30 Urine Glucose (UA) >=500 Urine Ketones Trace Urine Blood Negative Urine Nitrate Negative Urine Bilirubin Negative Urine Urobilinogen 0.2-1.0 Ur Leukocyte Esterase Small Urine RBC (Auto) 3 Urine Microscopic WBC 10 H Ur Squamous Epith Cells < 1 Urine Bacteria Rare Influenza Typ A,B (EIA) 11/25/17 11/25/17 11/25/17 19:03 20:47 20:47 WBC 10.6 RBC 6.75 H Hgb 15.2 Hct 48.0 MCV 71.0 L MCH 22.6 L MCHC 31.8 L RDW 15.3 H Plt Count 216 MPV 9.4 Neut % (Auto) 88.8 H Lymph % (Auto) 5.5 L [place] % (Auto) 3.8 Eos % (Auto) 1.6 Baso % (Auto) 0.3 Neut # (Auto) 9.4 H Lymph # (Auto) 0.6 L [place] # (Auto) 0.4 Eos # (Auto) 0.2 Baso # (Auto) 0.0 Neutrophils % (Manual) 81 H Band Neutrophils % 4 H Lymphocytes % (Manual) 7 L Monocytes % (Manual) 6 Eosinophils % (Manual) 2 Platelet Estimate Normal Hypochromasia (manual) Slight Microcytosis (manual) Slight Ovalocytes Slight [place] Cells Slight pO2 VBG pH VBG pCO2 VBG HCO3 VBG Total CO2 VBG O2 Sat (Calc) VBG Base Excess VBG Potassium Sodium 142 Chloride 102 Glucose Lactate FiO2 Potassium 4.4 Carbon Dioxide 26 Anion Gap 18 BUN 26 H Creatinine 0.9 Est GFR ( Amer) > 60 Est GFR (Non-Af Amer) > 60 POC Glucose (mg/dL) Random Glucose 210 H Calcium 9.7 Magnesium 1.9 Total Bilirubin 0.8 AST 27 ALT 38 Alkaline Phosphatase 92 Troponin I < 0.0120 Total Protein 8.3 H Albumin 4.5 Globulin 3.8 Albumin/Globulin Ratio 1.2 Lipase Venous Blood Potassium Urine Color Urine Clarity Urine pH Ur Specific [place] Urine Protein Urine Glucose (UA) Urine Ketones Urine Blood Urine Nitrate Urine Bilirubin Urine Urobilinogen Ur Leukocyte Esterase Urine RBC (Auto) Urine Microscopic WBC Ur Squamous Epith Cells Urine Bacteria Influenza Typ A,B (EIA) Negative for flu a/b 11/25/17 21:00 WBC RBC Hgb Hct MCV MCH MCHC RDW Plt Count MPV Neut % (Auto) Lymph % (Auto) [place] % (Auto) Eos % (Auto) Baso % (Auto) Neut # (Auto) Lymph # (Auto) [place] # (Auto) Eos # (Auto) Baso # (Auto) Neutrophils % (Manual) Band Neutrophils % Lymphocytes % (Manual) Monocytes % (Manual) Eosinophils % (Manual) Platelet Estimate Hypochromasia (manual) Microcytosis (manual) Ovalocytes [place] Cells pO2 VBG pH VBG pCO2 VBG HCO3 VBG Total CO2 VBG O2 Sat (Calc) VBG Base Excess VBG Potassium Sodium Chloride Glucose Lactate FiO2 Potassium Carbon Dioxide Anion Gap BUN Creatinine Est GFR ( Amer) Est GFR (Non-Af Amer) POC Glucose (mg/dL) Random Glucose Calcium Magnesium Total Bilirubin AST ALT Alkaline Phosphatase Troponin I Total Protein Albumin Globulin Albumin/Globulin Ratio Lipase 99 Venous Blood Potassium Urine Color Urine Clarity Urine pH Ur Specific [place] Urine Protein Urine Glucose (UA) Urine Ketones Urine Blood Urine Nitrate Urine Bilirubin Urine Urobilinogen Ur Leukocyte Esterase Urine RBC (Auto) Urine Microscopic WBC Ur Squamous Epith Cells Urine Bacteria Influenza Typ A,B (EIA) Assessment & Plan (1) Gastroenteritis Assessment and Plan: bland/delfina diet ivf po as deniz if blood, fever, abd pain will do stool c/s Status: Acute (2) DVT prophylaxis Assessment and Plan: scd nad ae hose ambulation Status: Acute (3) Type 2 diabetes mellitus with hyperglycemia Assessment and Plan: fsbg, home meds, hydration Status: Acute Decision To Admit - Pt Status Changed To: Hospital Disposition Of: Observation - . Bed Request Type: Med/Surg Admitting Physician: Hedy Franks
--- NOTE | 2017-11-26 09:35 | CARD ---
APPROVED REPORT EKG Measurement Heart [id number] <Conclusion> Sinus rhythm with 1st degree AV block Left axis deviation Septal infarct, age undetermined Inferior infarct, age undetermined Abnormal ECG
[2017-11-26] MEDS: GlipiZIDE 10 mg SR Tab PO SCH ×2 (10:07→16:40)
[2017-11-26] MEDS: Pantoprazole 40 mg EC Tab PO SCH (10:09)
--- NOTE | 2017-11-26 10:28 | RAD ---
HISTORY: cough COMPARISON: Chest radiograph dated 10/03/2017. FINDINGS: LUNGS: No active pulmonary disease. PLEURA: No significant pleural effusion identified, no pneumothorax apparent. CARDIOVASCULAR: Atherosclerotic aortic calcifications. Cardiomediastinal silhouette within normal limits. OSSEOUS STRUCTURES: Unchanged. VISUALIZED UPPER ABDOMEN: Normal. OTHER FINDINGS: None. IMPRESSION: No active disease.
[2017-11-26 11:13] LABS: BASO % 0.5 % (0.0-2.0); EOS # 0.1 K/uL (0.0-0.7); EOS % 0.6 % (0.0-4.0); HEMOGLOBIN 13.6 g/dL (12.0-18.0); LYMPH # 0.6 K/uL (1.0-4.3); LYMPH % 7.6 % (20.0-40.0); MEAN CELL VOLUME 71.1 fl (80.0-94.0); MEAN CORPUSCULAR HEMOGLOBIN 22.4 pg (27.0-31.0); MEAN CORPUSCULAR HGB CONC 31.5 g/dL (33.0-37.0); MEAN PLATELET VOLUME 8.7 fl (7.2-11.7); MONO # 0.6 K/uL (0.0-0.8); MONO % 7.5 % (0.0-10.0); NEUT % 83.8 % (50.0-75.0); NRBC % 0.1 % (0.0-0.0); RBC 6.08 Mil/uL (4.40-5.90); RED CELL DISTRIBUTION WIDTH 15.3 % (11.5-14.5); WHITE BLOOD COUNT 8.4 K/uL (4.8-10.8)
[2017-11-26 12:07] LABS: ALB/GLOB RATIO 1.1 (1.0-2.1); ALBUMIN 3.6 g/dL (3.5-5.0); ALT/SGPT 36 U/L (21-72); AST/SGOT 22 U/L (17-59); BLOOD UREA NITROGEN 29 mg/dl (9-20); CALCIUM 8.3 mg/dL (8.4-10.2); GFR AFRICAN-AMERICAN > 60; GFR NON-AFRICAN AMERICAN > 60
[2017-11-26] MEDS: Insulin Detemir 100 Units/ml Inj SC SCH (22:27)
[2017-11-27] MEDS: Sodium Chloride 0.45% 1,000 ML IV SCH ×2 (01:14→01:16)
[2017-11-27] MEDS: Pantoprazole 40 mg EC Tab PO SCH (08:42)
[2017-11-27] MEDS: GlipiZIDE 10 mg SR Tab PO SCH ×2 (08:45→16:45)
--- NOTE | 2017-11-27 09:09 | CP.PCM.PN ---
Subjective - Date & Time of Evaluation Date of Evaluation: 11/27/17 Time of Evaluation: 09:08 - Subjective Subjective: pt still w/ n/v/d. has some luq pain w/ palp. minimal po. stool malodorous. no f/c Objective - Vital Signs/Intake and Output Vital Signs (last 24 hours): Temp Pulse Resp BP Pulse Ox 98.0 F 84 20 117/60 99 11/27/17 07:53 11/27/17 07:53 11/27/17 07:53 11/27/17 08:44 11/27/17 07:53 - Medications Medications: Current Medications Aspirin (Ecotrin) 81 mg PO DAILY [facility] Last Admin: 11/27/17 08:40 Dose: 81 mg Atorvastatin Calcium (Lipitor) 40 mg PO [facility] Last Admin: 11/26/17 21:28 Dose: 40 mg Glipizide (Glucotrol Xl) 10 mg PO BID [facility] Last Admin: 11/26/17 16:40 Dose: 10 mg Sodium Chloride (Sodium Chloride 0.45%) 1,000 mls @ 100 mls/hr IV .Q10H [facility] Stop: 11/28/17 12:00 Last Admin: 11/27/17 01:16 Dose: Not Given Insulin Detemir (Levemir) 28 units SC [facility] Last Admin: 11/26/17 22:27 Dose: 28 u Lisinopril (Zestril) 20 mg PO DAILY [facility] Last Admin: 11/27/17 08:44 Dose: 20 mg Loperamide HCl (Imodium) 2 mg PO Q4 PRN PRN Reason: Diarrhea Last Admin: 11/27/17 08:41 Dose: 2 mg Ondansetron HCl (Zofran Inj) 4 mg IVP Q4 PRN PRN Reason: Nausea/Vomiting Last Admin: 11/26/17 14:50 Dose: 4 mg Pantoprazole Sodium (Protonix Ec Tab) 40 mg PO DAILY [facility] Last Admin: 11/27/17 08:42 Dose: 40 mg Sitagliptin Phosphate (Januvia) 100 mg PO DAILY [facility] Last Admin: 11/27/17 08:44 Dose: Not Given Tamsulosin HCl (Flomax) 0.4 mg PO DAILY [facility] Last Admin: 11/27/17 08:40 Dose: 0.4 mg - Labs Labs: 11/26/17 09:54 11/26/17 09:54 - Constitutional Appears: Well, Non-toxic, No Acute Distress - Head Exam Head Exam: ATRAUMATIC, NORMAL INSPECTION, NORMOCEPHALIC - Eye Exam Eye Exam: EOMI, Normal appearance, PERRL Pupil Exam: NORMAL ACCOMODATION, PERRL - ENT Exam ENT Exam: Mucous Membranes Moist, Normal Exam - Neck Exam Neck Exam: Full ROM, Normal Inspection. absent: Lymphadenopathy - Respiratory Exam Respiratory Exam: Clear to Ausculation Bilateral, NORMAL BREATHING PATTERN - Cardiovascular Exam Cardiovascular Exam: REGULAR RHYTHM, RRR, +S1, +S2. absent: Murmur - GI/Abdominal Exam GI & Abdominal Exam: Soft, Tenderness, Normal Bowel Sounds Additional comments: luq - Extremities Exam Extremities Exam: Full ROM, Normal Capillary Refill, Normal Inspection. absent : Joint Swelling, Pedal Edema - Back Exam Back Exam: NORMAL INSPECTION - Neurological Exam Neurological Exam: Alert, Awake, CN II-XII Intact, Normal Gait, Oriented x3 - Psychiatric Exam Psychiatric exam: Normal Affect, Normal Mood - Skin Skin Exam: Dry, Intact, Normal Color, Warm Assessment and Plan (1) Gastroenteritis Status: Acute (2) DVT prophylaxis Status: Acute (3) Type 2 diabetes mellitus with hyperglycemia Status: Acute - Assessment and Plan (Free Text) Assessment: (1) Gastroenteritis Assessment and Plan: bland/delfina diet ivf po as deniz stool c/s ordered kimmodium prn Status: Acute (2) DVT prophylaxis Assessment and Plan: scd nad ae hose ambulation Status: Acute (3) Type 2 diabetes mellitus with hyperglycemia Assessment and Plan: fsbg, home meds, hydration hold meds if not eating Status: Acute
[2017-11-27 11:31] LABS: BASO % 0.5 % (0.0-2.0); EOS # 0.1 K/uL (0.0-0.7); EOS % 1.1 % (0.0-4.0); HEMOGLOBIN 12.4 g/dL (12.0-18.0); LYMPH # 1.1 K/uL (1.0-4.3); LYMPH % 13.4 % (20.0-40.0); MEAN CELL VOLUME 70.7 fl (80.0-94.0); MEAN CORPUSCULAR HEMOGLOBIN 22.2 pg (27.0-31.0); MEAN CORPUSCULAR HGB CONC 31.4 g/dL (33.0-37.0); MEAN PLATELET VOLUME 8.7 fl (7.2-11.7); MONO # 0.9 K/uL (0.0-0.8); NEUT # 6.1 K/uL (1.8-7.0); RBC 5.59 Mil/uL (4.40-5.90); RED CELL DISTRIBUTION WIDTH 15.3 % (11.5-14.5); WHITE BLOOD COUNT 8.2 K/uL (4.8-10.8)
[2017-11-27 11:47] LABS: ALB/GLOB RATIO 1.1 (1.0-2.1); ALBUMIN 3.2 g/dL (3.5-5.0); ALT/SGPT 29 U/L (21-72); AST/SGOT 21 U/L (17-59); BLOOD UREA NITROGEN 13 mg/dl (9-20); CALCIUM 8.4 mg/dL (8.4-10.2); GFR AFRICAN-AMERICAN > 60; GFR NON-AFRICAN AMERICAN > 60
[2017-11-27 21:26] LABS: FECAL LEUKOCYTES NEGATIVE (NEGATIVE)
[2017-11-27] MEDS: Insulin Detemir 100 Units/ml Inj SC SCH (21:41)
--- NOTE | 2017-11-28 07:56 | CP.PCM.PN ---
Subjective - Date & Time of Evaluation Date of Evaluation: 11/28/17 Time of Evaluation: 07:54 - Subjective Subjective: doing well, no f/c, n/v/d. no obvious blood reported in stool. stool occult blood + c-diff pending deniz small po Objective - Vital Signs/Intake and Output Vital Signs (last 24 hours): Temp Pulse Resp BP Pulse Ox 97.7 F 69 19 117/62 99 11/28/17 00:00 11/28/17 00:00 11/28/17 00:00 11/28/17 00:00 11/28/17 00:00 - Medications Medications: Current Medications Aspirin (Ecotrin) 81 mg PO DAILY [facility] Last Admin: 11/27/17 08:40 Dose: 81 mg Atorvastatin Calcium (Lipitor) 40 mg PO [facility] Last Admin: 11/27/17 21:41 Dose: 40 mg Glipizide (Glucotrol Xl) 10 mg PO BID [facility] Last Admin: 11/27/17 16:45 Dose: Not Given Sodium Chloride (Sodium Chloride 0.45%) 1,000 mls @ 100 mls/hr IV .Q10H [facility] Stop: 11/28/17 12:00 Last Admin: 11/27/17 01:16 Dose: Not Given Insulin Detemir (Levemir) 28 units SC [facility] Last Admin: 11/27/17 21:41 Dose: 28 u Lisinopril (Zestril) 20 mg PO DAILY [facility] Last Admin: 11/27/17 08:44 Dose: 20 mg Loperamide HCl (Imodium) 2 mg PO Q4 PRN PRN Reason: Diarrhea Last Admin: 11/27/17 08:41 Dose: 2 mg Ondansetron HCl (Zofran Inj) 4 mg IVP Q4 PRN PRN Reason: Nausea/Vomiting Last Admin: 11/26/17 14:50 Dose: 4 mg Pantoprazole Sodium (Protonix Ec Tab) 40 mg PO DAILY [facility] Last Admin: 11/27/17 08:42 Dose: 40 mg Sitagliptin Phosphate (Januvia) 100 mg PO DAILY [facility] Last Admin: 11/27/17 08:44 Dose: Not Given Tamsulosin HCl (Flomax) 0.4 mg PO DAILY [facility] Last Admin: 11/27/17 08:40 Dose: 0.4 mg - Labs Labs: 11/27/17 11:28 02/04/18 11:28 - Constitutional Appears: Well, Non-toxic, No Acute Distress - Head Exam Head Exam: ATRAUMATIC, NORMAL INSPECTION, NORMOCEPHALIC - Eye Exam Eye Exam: EOMI, Normal appearance, PERRL Pupil Exam: NORMAL ACCOMODATION, PERRL - ENT Exam ENT Exam: Mucous Membranes Moist, Normal Exam - Neck Exam Neck Exam: Full ROM, Normal Inspection. absent: Lymphadenopathy - Respiratory Exam Respiratory Exam: Clear to Ausculation Bilateral, NORMAL BREATHING PATTERN - Cardiovascular Exam Cardiovascular Exam: REGULAR RHYTHM, RRR, +S1, +S2. absent: Murmur - GI/Abdominal Exam GI & Abdominal Exam: Soft, Normal Bowel Sounds. absent: Tenderness - Extremities Exam Extremities Exam: Full ROM, Normal Capillary Refill, Normal Inspection. absent : Joint Swelling, Pedal Edema - Back Exam Back Exam: NORMAL INSPECTION - Neurological Exam Neurological Exam: Alert, Awake, CN II-XII Intact, Normal Gait, Oriented x3 - Psychiatric Exam Psychiatric exam: Normal Affect, Normal Mood - Skin Skin Exam: Dry, Intact, Normal Color, Warm Assessment and Plan (1) Gastroenteritis Status: Acute (2) DVT prophylaxis Status: Acute (3) Type 2 diabetes mellitus with hyperglycemia Status: Acute - Assessment and Plan (Free Text) Assessment: (1) Gastroenteritis Assessment and Plan: bland/delfina diet ivf po as deniz stool c/s ordered immodium prn Status: Acute (2) DVT prophylaxis Assessment and Plan: scd nad ae hose ambulation Status: Acute (3) Type 2 diabetes mellitus with hyperglycemia Assessment and Plan: fsbg, home meds, hydration hold meds if not eating Status: Acute
[2017-11-28 08:26] VITALS: RESP 20
[2017-11-28] MEDS: Sodium Chloride 0.45% 1,000 ML IV SCH (08:43)
[2017-11-28] MEDS: GlipiZIDE 10 mg SR Tab PO SCH ×2 (08:43→16:01)
[2017-11-28] MEDS: Pantoprazole 40 mg EC Tab PO SCH (08:44)
[2017-11-28 16:33] LABS: C DIFF TOXIN A B NEGATIVE (NEGATIVE)
[2017-11-28] MEDS: Insulin Detemir 100 Units/ml Inj SC SCH (22:09)
[2017-11-29 01:03] VITALS: PULSE 67; O2SAT 98
[2017-11-29 06:31] LABS: BASO % 0.5 % (0.0-2.0); EOS # 0.4 K/uL (0.0-0.7); EOS % 4.5 % (0.0-4.0); HEMOGLOBIN 12.7 g/dL (12.0-18.0); LYMPH # 1.8 K/uL (1.0-4.3); LYMPH % 21.2 % (20.0-40.0); MEAN CELL VOLUME 70.6 fl (80.0-94.0); MEAN CORPUSCULAR HEMOGLOBIN 22.2 pg (27.0-31.0); MEAN CORPUSCULAR HGB CONC 31.5 g/dL (33.0-37.0); MONO # 0.7 K/uL (0.0-0.8); MONO % 8.4 % (0.0-10.0); NEUT # 5.7 K/uL (1.8-7.0); NEUT % 65.4 % (50.0-75.0); NRBC % 0.1 % (0.0-0.0); RBC 5.71 Mil/uL (4.40-5.90); RED CELL DISTRIBUTION WIDTH 15.2 % (11.5-14.5); WHITE BLOOD COUNT 8.7 K/uL (4.8-10.8)
[2017-11-29 06:47] LABS: ALBUMIN 3.2 g/dL (3.5-5.0); ALT/SGPT 32 U/L (21-72); AST/SGOT 17 U/L (17-59); BLOOD UREA NITROGEN 14 mg/dl (9-20); CALCIUM 8.4 mg/dL (8.4-10.2); GFR AFRICAN-AMERICAN > 60; GFR NON-AFRICAN AMERICAN > 60
--- NOTE | 2017-11-29 08:06 | CP.PCM.PN ---
Subjective - Date & Time of Evaluation Date of Evaluation: 11/29/17 Time of Evaluation: 08:05 - Subjective Subjective: pt doing better. no f/c, n/v/d. bw wnl. stool c/s and cdiff negative. case d/c w/ gi Objective - Vital Signs/Intake and Output Vital Signs (last 24 hours): Temp Pulse Resp BP Pulse Ox 97.8 F 67 20 146/74 98 11/29/17 01:01 11/29/17 01:01 11/29/17 01:01 11/29/17 01:01 11/29/17 01:01 - Medications Medications: Current Medications Aspirin (Ecotrin) 81 mg PO DAILY [facility] Last Admin: 11/28/17 08:44 Dose: 81 mg Atorvastatin Calcium (Lipitor) 40 mg PO HS [facility] Last Admin: 11/28/17 22:08 Dose: 40 mg Glipizide (Glucotrol Xl) 10 mg PO BID [facility] Last Admin: 11/28/17 16:01 Dose: 10 mg Insulin Detemir (Levemir) 28 units SC [facility] Last Admin: 11/28/17 22:09 Dose: 28 u Lisinopril (Zestril) 20 mg PO DAILY [facility] Last Admin: 11/28/17 08:44 Dose: 20 mg Loperamide HCl (Imodium) 2 mg PO Q4 PRN PRN Reason: Diarrhea Last Admin: 11/27/17 08:41 Dose: 2 mg Ondansetron HCl (Zofran Inj) 4 mg IVP Q4 PRN PRN Reason: Nausea/Vomiting Last Admin: 11/26/17 14:50 Dose: 4 mg Pantoprazole Sodium (Protonix Ec Tab) 40 mg PO DAILY [facility] Last Admin: 11/28/17 08:44 Dose: 40 mg Sitagliptin Phosphate (Januvia) 100 mg PO DAILY [facility] Last Admin: 11/28/17 08:43 Dose: Not Given Tamsulosin HCl (Flomax) 0.4 mg PO DAILY [facility] Last Admin: 11/28/17 08:44 Dose: 0.4 mg - Labs Labs: 11/29/17 05:45 11/29/17 05:45 - Constitutional Appears: Well, Non-toxic, No Acute Distress - Head Exam Head Exam: ATRAUMATIC, NORMAL INSPECTION, NORMOCEPHALIC - Eye Exam Eye Exam: EOMI, Normal appearance, PERRL Pupil Exam: NORMAL ACCOMODATION, PERRL - ENT Exam ENT Exam: Mucous Membranes Moist, Normal Exam - Neck Exam Neck Exam: Full ROM, Normal Inspection. absent: Lymphadenopathy - Respiratory Exam Respiratory Exam: Clear to Ausculation Bilateral, NORMAL BREATHING PATTERN - Cardiovascular Exam Cardiovascular Exam: REGULAR RHYTHM, RRR, +S1, +S2. absent: Murmur - GI/Abdominal Exam GI & Abdominal Exam: Soft, Normal Bowel Sounds. absent: Tenderness - Extremities Exam Extremities Exam: Full ROM, Normal Capillary Refill, Normal Inspection. absent : Joint Swelling, Pedal Edema - Back Exam Back Exam: NORMAL INSPECTION - Neurological Exam Neurological Exam: Alert, Awake, CN II-XII Intact, Normal Gait, Oriented x3 - Psychiatric Exam Psychiatric exam: Normal Affect, Normal Mood - Skin Skin Exam: Dry, Intact, Normal Color, Warm Assessment and Plan (1) Gastroenteritis Status: Acute (2) DVT prophylaxis Status: Acute (3) Type 2 diabetes mellitus with hyperglycemia Status: Acute - Assessment and Plan (Free Text) Assessment: (1) Gastroenteritis Assessment and Plan: bland/delfina diet ivf po as deniz stool c/s ordered-negative immodium prn Status: Acute (2) DVT prophylaxis Assessment and Plan: scd nad ae hose ambulation Status: Acute (3) Type 2 diabetes mellitus with hyperglycemia Assessment and Plan: fsbg, home meds, hydration hold meds if not eating Status: Acute
[2017-11-29 08:21] VITALS: BP 156/72; TEMP 98.1
[2017-11-29] MEDS: Pantoprazole 40 mg EC Tab PO SCH (09:13)
[2017-11-29] MEDS: GlipiZIDE 10 mg SR Tab PO SCH (09:14)
--- NOTE | 2017-11-29 15:11 | CON ---
DATE: 11/28/2017 REASON FOR CONSULTATION: Nausea, vomiting, diarrhea. HISTORY OF PRESENT ILLNESS: This is a very pleasant 72-year-old man, active smoker, hypertension, who comes in with abdominal pain and discomfort for the past couple of days. He had some diarrhea. All of his symptoms resolved. He tolerated the diet. At this point, the pain has gone. No nausea or vomiting. No fevers or chills. Lying in bed comfortably in no apparent distress. PAST MEDICAL HISTORY: As above. PAST SURGICAL HISTORY: As above. MEDICATIONS: Has been reviewed. REVIEW OF SYSTEMS: All other systems have been reviewed and negative apart from the HPI. PHYSICAL EXAMINATION: VITAL SIGNS: In the hospital are grossly unremarkable. GENERAL: This is a pleasant elderly-appearing male, lying in bed comfortable, in no apparent distress. HEENT: Head is normocephalic, atraumatic. Eyes: Pupils are equally reactive to light bilaterally. No conjunctival pallor or icterus. NECK: Supple. Normal range of motion. No lymphadenopathy appreciated. LUNGS: Coarse breath sounds bilaterally. HEART: S1 and S2, regular rate rhythm. No murmurs appreciated. ABDOMEN: Soft and nontender. Bowel sounds present. No rebound, no guarding. EXTREMITIES: Pulses present bilaterally. SKIN: Warm, dry, and intact. NEUROLOGIC: A and O x3. LABORATORY DATA: Labs and radiology have been reviewed. CAT scan shows choledocholithiasis which has been seen on prior. Labs show WBC of 8.3 and hemoglobin of 12.4. LFTs unremarkable. ASSESSMENT AND PLAN: This is a 72-year-old male with nausea, vomiting, diarrhea. From a GI standpoint, this is gastroenteritis. The patient is doing well, can be discharged home safely. We will need at some point elective ERCP for the choledocholithiasis. Thank you for the consult. Jasson Velasquez MD/ PhD
--- NOTE | 2017-11-29 15:47 | CP.PCM.DIS ---
Provider - Provider Date of Admission: 11/26/17 14:44 Attending physician: Hedy Franks MD Time Spent in preparation of Discharge (in minutes): 15 Diagnosis - Discharge Diagnosis (1) Gastroenteritis Status: Acute (2) DVT prophylaxis Status: Acute (3) Type 2 diabetes mellitus with hyperglycemia Status: Acute Hospital Course - Lab Results Lab Results: Micro Results 11/27/17 17:55 Stool Stool Culture - Final NO SALMONELLA, SHIGELLA OR CAMPYLOBACTER ISOLATED. 11/25/17 18:30 Blood-Venous Blood Culture - Preliminary NO GROWTH AFTER 3 DAYS 11/25/17 18:50 Blood-Venous Blood Culture - Preliminary NO GROWTH AFTER 3 DAYS 11/27/17 17:55 Stool Ova and Parasite Concentrate Exam - Final 11/25/17 18:30 Urine,Clean Catch Urine Culture - Final No Growth (<1,000 CFU/ML) Most Recent Lab Values WBC 8.7 K/uL (4.8-10.8) 11/29/17 05:45 RBC 5.71 Mil/uL (4.40-5.90) 11/29/17 05:45 Hgb 12.7 g/dL (12.0-18.0) 11/29/17 05:45 Hct 40.3 % (35.0-51.0) 11/29/17 05:45 MCV 70.6 fl (80.0-94.0) L 11/29/17 05:45 MCH 22.2 pg (27.0-31.0) L 11/29/17 05:45 MCHC 31.5 g/dL (33.0-37.0) L 11/29/17 05:45 RDW 15.2 % (11.5-14.5) H 11/29/17 05:45 Plt Count 155 K/uL (130-400) 11/29/17 05:45 MPV 9.0 fl (7.2-11.7) 11/29/17 05:45 Neut % (Auto) 65.4 % (50.0-75.0) 11/29/17 05:45 Lymph % (Auto) 21.2 % (20.0-40.0) 11/29/17 05:45 Lamb % (Auto) 8.4 % (0.0-10.0) 11/29/17 05:45 Eos % (Auto) 4.5 % (0.0-4.0) H 11/29/17 05:45 Baso % (Auto) 0.5 % (0.0-2.0) 11/29/17 05:45 Neut # (Auto) 5.7 K/uL (1.8-7.0) 11/29/17 05:45 Lymph # (Auto) 1.8 K/uL (1.0-4.3) 11/29/17 05:45 Lamb # (Auto) 0.7 K/uL (0.0-0.8) 11/29/17 05:45 Eos # (Auto) 0.4 K/uL (0.0-0.7) 11/29/17 05:45 Baso # (Auto) 0.0 K/uL (0.0-0.2) 11/29/17 05:45 Neutrophils % (Manual) 81 % (42-75) H 11/25/17 20:47 Band Neutrophils % 4 % (0-2) H 11/25/17 20:47 Lymphocytes % (Manual) 7 % (20-50) L 11/25/17 20:47 Monocytes % (Manual) 6 % (0-10) 11/25/17 20:47 Eosinophils % (Manual) 2 % (0-7) 11/25/17 20:47 Platelet Estimate Normal (NORMAL) 11/25/17 20:47 Hypochromasia (manual) Slight 11/25/17 20:47 Microcytosis (manual) Slight 11/25/17 20:47 Ovalocytes Slight 11/25/17 20:47 Martinez Cells Slight 11/25/17 20:47 pO2 27 mm/Hg (30-55) L 11/25/17 18:32 VBG pH 7.35 (7.32-7.43) 11/25/17 18:32 VBG pCO2 50 mmHg (40-60) 11/25/17 18:32 VBG HCO3 24.3 mmol/L 11/25/17 18:32 VBG Total CO2 29.1 mmol/L (22-28) H 11/25/17 18:32 VBG O2 Sat (Calc) 55.9 % (40-65) 11/25/17 18:32 VBG Base Excess 1.0 mmol/L (0.0-2.0) 11/25/17 18:32 VBG Potassium 4.8 mmol/L (3.6-5.2) 11/25/17 18:32 Sodium 138.0 mmol/L (132-148) 11/25/17 18:32 Chloride 101.0 mmol/L (98-107) 11/25/17 18:32 Glucose 225 mg/dL (75-110) H 11/25/17 18:32 Lactate 1.8 mmol/L (0.7-2.1) 11/25/17 18:32 FiO2 21.0 % 11/25/17 18:32 Sodium 142 mmol/l (132-148) 11/29/17 05:45 Potassium 3.6 MMOL/L (3.6-5.0) 11/29/17 05:45 Chloride 104 mmol/L (98-107) 11/29/17 05:45 Carbon Dioxide 30 mmol/L (22-30) 11/29/17 05:45 Anion Gap 12 (10-20) 11/29/17 05:45 BUN 14 mg/dl (9-20) 11/29/17 05:45 Creatinine 0.7 mg/dl (0.8-1.5) L 11/29/17 05:45 Est GFR ( Amer) > 60 11/29/17 05:45 Est GFR (Non-Af Amer) > 60 11/29/17 05:45 POC Glucose (mg/dL) 126 mg/dL (65-110) H 11/29/17 11:09 Random Glucose 95 mg/dL (75-110) 11/29/17 05:45 Calcium 8.4 mg/dL (8.4-10.2) 11/29/17 05:45 Magnesium 1.9 MG/DL (1.6-2.3) 11/25/17 20:47 Total Bilirubin 0.4 mg/dl (0.2-1.3) 11/29/17 05:45 AST 17 U/L (17-59) 11/29/17 05:45 ALT 32 U/L (21-72) 11/29/17 05:45 Alkaline Phosphatase 58 U/L (38-126) 11/29/17 05:45 Troponin I < 0.0120 ng/mL (0.00-0.120) 11/25/17 20:47 Total Protein 6.3 G/DL (6.3-8.2) 11/29/17 05:45 Albumin 3.2 g/dL (3.5-5.0) L 11/29/17 05:45 Globulin 3.1 gm/dL (2.2-3.9) 11/29/17 05:45 Albumin/Globulin Ratio 1.0 (1.0-2.1) 11/29/17 05:45 Lipase 99 U/L (23-300) 11/25/17 21:00 Venous Blood Potassium 4.8 mmol/L (3.6-5.2) 11/25/17 18:32 Urine Color Yellow (YELLOW) 11/25/17 18:30 Urine Clarity Slighty-cloudy (Clear) 11/25/17 18:30 Urine pH 5.0 (5.0-8.0) 11/25/17 18:30 Ur Specific [place] 1.023 (1.003-1.030) 11/25/17 18:30 Urine Protein 30 mg/dL (NEGATIVE) 11/25/17 18:30 Urine Glucose (UA) >=500 mg/dL (Normal) 11/25/17 18:30 Urine Ketones Trace mg/dL (NEGATIVE) 11/25/17 18:30 Urine Blood Negative (NEGATIVE) 11/25/17 18:30 Urine Nitrate Negative (NEGATIVE) 11/25/17 18:30 Urine Bilirubin Negative (NEGATIVE) 11/25/17 18:30 Urine Urobilinogen 0.2-1.0 mg/dL (0.2-1.0) 11/25/17 18:30 Ur Leukocyte Esterase Small Cuca/uL (Negative) 11/25/17 18:30 Urine RBC (Auto) 3 /hpf (0-3) 11/25/17 18:30 Urine Microscopic WBC 10 /hpf (0-5) H 11/25/17 18:30 Ur Squamous Epith Cells < 1 /hpf (0-5) 11/25/17 18:30 Urine Bacteria Rare (<OCC) 11/25/17 18:30 Stool Occult Blood Positive (NEGATIVE) H 11/27/17 18:00 Stool Leukocytes, Qual Negative (NEGATIVE) 11/27/17 17:55 C. difficile Ag & Toxin Negative (NEGATIVE) 11/27/17 17:55 Influenza Typ A,B (EIA) Negative for flu a/b (NEGATIVE) 11/25/17 19:03 - Hospital Course Hospital Course: ivf, gi incr po intake f/u c/s Discharge Exam - Head Exam Head Exam: ATRAUMATIC, NORMAL INSPECTION, NORMOCEPHALIC Discharge Plan - Follow Up Plan Condition: STABLE Disposition: HOME/ ROUTINE Instructions: Gastroenteritis (DC) Additional Instructions: follow up with Dr. Velasquez for procedure ERCP follow up with [facility]: Garrick Hwang in 1 day final dx-age w/ diarrhea, dehydration f/u rmg in am, rted prn, gi for ercp meds pe rmed rec, hydration Referrals: Jasson Velasquez MD, PhD [Staff Provider] - Garrick Hwang, DNP, COMPLIANCE MANAGER [Advanced Practice Nurse] -
== END 2017-11-29 12:56 | disposition home or self-care (01) | DRG 641 ==
LOC: H.ER 16:44 → H.ERHOLD 11-26 01:51 → H.MEDSURG1 11-26 04:25 → OBSVTOIN 11-26 14:44
PROVIDERS: ADMIT Family Medicine; ATTEND Family Medicine
DX: E86.0 Dehydration (principal); K52.9 Noninfective gastroenteritis and colitis, unspecified; E11.65 Type 2 diabetes mellitus with hyperglycemia; K80.50 Calculus of bile duct without cholangitis or cholecystitis without obstruction; Z59.0 Homelessness; I10 Essential (primary) hypertension; F17.210 Nicotine dependence, cigarettes, uncomplicated; Z95.5 Presence of coronary angioplasty implant and graft; R19.5 Other fecal abnormalities; K44.9 Diaphragmatic hernia without obstruction or gangrene

== ENCOUNTER 2017-12-27 19:57 | Emergency (ER) | payer MEDICARE, MEDICAID ==
[2017-12-27 19:57] VITALS: BMI 25.5
[2017-12-27 20:04] VITALS: BP 122/61; PULSE 83; TEMP 97.6; O2SAT 98
[2017-12-27 20:08] VITALS: RESP 19
--- NOTE | 2017-12-27 20:29 | ED PDOC ---
HPI: Abdomen Time Seen by Provider: 12/27/17 20:15 Chief Complaint (Nursing): Abdominal Pain Chief Complaint (Provider): abdominal pain History Per: Patient History/Exam Limitations: no limitations Onset/Duration Of Symptoms: Days (2), Waxing/Waning Current Symptoms Are (Timing): Still Present Location Of Pain/Discomfort: Epigastric Last Bowel Movement: Today Additional Complaint(s): 72 y/o male presents with intermittent epigastric abdominal pain x 2 days. Patient states he was diagnosed with a "stone" when he was admitted to hospital last month for stomach virus, and was advised to follow up with Dr. Velasquez but did not know he needed to make an appointment. Denies fever, nausea/ vomiting, chest pain, shortness of breath, palpitations, changes in bowel movements, urinary symptoms. Past Medical History Reviewed: Historical Data, Nursing Documentation, Vital Signs Vital Signs: Last Vital Signs Temp 97.6 F 12/27/17 20:06 Pulse 83 12/27/17 20:06 Resp 19 12/27/17 20:06 BP 122/61 12/27/17 20:06 Pulse Ox 98 12/27/17 22:01 - Medical History PMH: Diabetes, Gastritis, HTN, Kidney Stones, Chronic Kidney Disease - Surgical History Surgical History: Cholecystectomy, Coronary Stent, Tonsillectomy - Family History Family History: States: Diabetes - Home Medications Home Medications: Ambulatory Orders Medication Instructions Recorded Aspirin [Ecotrin] 81 mg PO DAILY 11/25/17 Atorvastatin [Lipitor] 40 mg PO HS 11/25/17 Esomeprazole Magnesium [Nexium] 40 mg PO DAILY 11/25/17 Glipizide [Glipizide Xl] 10 mg PO BID 11/25/17 Insulin Glargine, Recombina 28 unit SC DAILY 11/25/17 [Lantus] Lisinopril [Zestril] 20 mg PO DAILY 11/25/17 SITagliptin [Januvia] 100 mg PO DAILY 11/25/17 Tamsulosin [Flomax] 0.4 mg PO DAILY 11/25/17 - Allergies Allergies/Adverse Reactions: Allergies Allergy/AdvReac Type Severity Reaction Status Date / Time No Known Allergies Allergy Verified 11/25/17 16:47 Review of Systems Gastrointestinal: Positive for: Abdominal Pain Physical Exam - Reviewed Nursing Documentation Reviewed: Yes Vital Signs Reviewed: Yes - Physical Exam Appears: Positive for: Well, Non-toxic, No Acute Distress Head Exam: Positive for: ATRAUMATIC, NORMAL INSPECTION, NORMOCEPHALIC Skin: Positive for: Normal Color Eye Exam: Positive for: Normal appearance ENT: Positive for: Normal ENT Inspection Cardiovascular/Chest: Positive for: Regular Rate, Rhythm Respiratory: Positive for: Normal Breath Sounds Gastrointestinal/Abdominal: Positive for: Bowel Sounds, Soft, Tenderness ( epigastric) Back: Positive for: Normal Inspection Extremity: Positive for: Normal ROM Neurologic/Psych: Positive for: Alert, Oriented - Laboratory Results Result Diagrams: 12/27/17 20:46 12/27/17 20:46 - ECG ECG: Positive for: Viewed By Me (reviewed by ED attending) ECG Rhythm: Positive for: Sinus Rhythm O2 Sat by Pulse Oximetry: 98 Pulse Ox Interpretation: Normal - Progress ED Course And Treament: Patient with history of CBD stone noted on most recent CT last month, which mentioned also seeing same stone dating back to a 04/2016 CT. Will check labs, medicate with IV toradol for pain control. Patient reports improvement on re-evaluation WBC, LFT's, Lipase WNL; no indication for repeat imaging at this time. Patient was advised to follow up with Dr. Clement as previously instructed for outpatient ERCP. Continue Esomaprazole. Return precautions given. Disposition - Clinical Impression Clinical Impression: Abdominal pain - Patient ED Disposition Is Patient to be Admitted: No Counseled Patient/Family Regarding: Studies Performed, Diagnosis, Need For Followup, Rx Given - Disposition Referrals: Jasson Velasquez MD, PhD [Staff Provider] - Disposition: Routine/Home Disposition Time: 22:04 Condition: IMPROVED Instructions: Acute Abdomen (Belly Pain) Forms: [employer] (Japanese)
[2017-12-27 20:53] LABS: BASO # 0.1 K/uL (0.0-0.2); BASO % 0.8 % (0.0-2.0); EOS # 0.3 K/uL (0.0-0.7); EOS % 3.7 % (0.0-4.0); HEMOGLOBIN 12.7 g/dL (12.0-18.0); LYMPH # 2.3 K/uL (1.0-4.3); LYMPH % 28.9 % (20.0-40.0); MEAN CELL VOLUME 71.8 fl (80.0-94.0); MEAN CORPUSCULAR HEMOGLOBIN 22.5 pg (27.0-31.0); MEAN CORPUSCULAR HGB CONC 31.4 g/dL (33.0-37.0); MEAN PLATELET VOLUME 8.9 fl (7.2-11.7); MONO # 0.6 K/uL (0.0-0.8); MONO % 7.6 % (0.0-10.0); NEUT # 4.7 K/uL (1.8-7.0); NRBC % 0.3 % (0.0-0.0); RBC 5.65 Mil/uL (4.40-5.90); RED CELL DISTRIBUTION WIDTH 15.9 % (11.5-14.5); WHITE BLOOD COUNT 7.9 K/uL (4.8-10.8)
[2017-12-27 21:10] LABS: ALB/GLOB RATIO 1.2 (1.0-2.1); ALBUMIN 3.7 g/dL (3.5-5.0); ALT/SGPT 26 U/L (21-72); AST/SGOT 18 U/L (17-59); BLOOD UREA NITROGEN 18 mg/dl (9-20); CALCIUM 9.1 mg/dL (8.4-10.2); GFR AFRICAN-AMERICAN > 60; GFR NON-AFRICAN AMERICAN > 60; LIPASE 74 U/L (23-300)
[2017-12-27 21:26] LABS: INR 0.9 (0.9-1.2); PARTIAL THROMBOPLASTIN TIME 33.5 Seconds (25.6-37.1); PROTHROMBIN TIME 10.4 Seconds (9.8-13.1)
--- NOTE | 2017-12-28 12:07 | CARD ---
APPROVED REPORT EKG Measurement Heart [id number] <Conclusion> Sinus rhythm with 1st degree AV block Septal infarct, age undetermined Inferior infarct, age undetermined Abnormal ECG
== END 2017-12-27 22:18 | disposition home or self-care (01) ==
LOC: H.ER 19:57
DX: R10.13 Epigastric pain (principal); I12.9 Hypertensive chronic kidney disease with stage 1 through stage 4 chronic kidney disease, or unspecified chronic kidney disease; Z79.4 Long term (current) use of insulin; Z79.82 Long term (current) use of aspirin; Z87.442 Personal history of urinary calculi; Z95.5 Presence of coronary angioplasty implant and graft
CPT/HCPCS: 80053; 83690; 85025; 85610; 85730; 93005; 96374; 99282; J1885

== ENCOUNTER 2018-01-01 03:49 | Emergency (ER) | payer MEDICARE, MEDICAID ==
[2018-01-01 04:34] VITALS: BMI 25.7
[2018-01-01 04:38] VITALS: TEMP 97.5; O2SAT 98
--- NOTE | 2018-01-01 05:42 | ED PDOC ---
HPI: Abdomen Time Seen by Provider: 01/01/18 04:38 Chief Complaint (Nursing): Abdominal Pain Chief Complaint (Provider): Abdominal Pain History Per: Patient History/Exam Limitations: no limitations Current Symptoms Are (Timing): Intermittent Episodes Pain Scale Rating Of: 2 Location Of Pain/Discomfort: LLQ Associated Symptoms: Nausea. denies: Fever, Vomiting, Diarrhea, Urinary Symptoms Additional Complaint(s): Kalia Lowe is a 72 year old male with no past medical history, who is presenting to the ER with sudden onset left lower quadrant abdominal pain , descried as a 2/10 pain intensity, onset earlier today. Patient states that he does not have abdominal pain now, but reports feeling nausea. He states that in his past visit, he was told he had a stone, but does not know the location of it. He denies any vomiting, diarrhea, fever, or urinary symptoms. Patient offers no other medical complaints at this time. PMD: Hedy Franks Past Medical History Reviewed: Historical Data, Nursing Documentation, Vital Signs Vital Signs: Last Vital Signs Temp 97.5 F L 01/01/18 04:35 Pulse 78 01/01/18 10:33 Resp 18 01/01/18 10:33 BP 147/74 01/01/18 10:33 Pulse Ox 98 01/01/18 10:33 - Medical History PMH: Diabetes, Gastritis, HTN, Kidney Stones, Chronic Kidney Disease - Surgical History Surgical History: Cholecystectomy, Coronary Stent, Tonsillectomy - Family History Family History: States: Diabetes - Home Medications Home Medications: Ambulatory Orders Medication Instructions Recorded Aspirin [Ecotrin] 81 mg PO DAILY 11/25/17 Atorvastatin [Lipitor] 40 mg PO HS 11/25/17 Esomeprazole Magnesium [Nexium] 40 mg PO DAILY 11/25/17 Glipizide [Glipizide Xl] 10 mg PO BID 11/25/17 Insulin Glargine, Recombina 28 unit SC DAILY 11/25/17 [Lantus] Lisinopril [Zestril] 20 mg PO DAILY 11/25/17 SITagliptin [Januvia] 100 mg PO DAILY 11/25/17 Tamsulosin [Flomax] 0.4 mg PO DAILY 11/25/17 Ondansetron ODT [Zofran ODT] 4 mg PO Q8H PRN #20 odt 01/01/18 - Allergies Allergies/Adverse Reactions: Allergies Allergy/AdvReac Type Severity Reaction Status Date / Time No Known Allergies Allergy Verified 01/01/18 04:34 Review of Systems ROS Statement: Except As Marked, All Systems Reviewed And Found Negative Constitutional: Negative for: Fever Gastrointestinal: Positive for: Nausea, Abdominal Pain (left Lower Quadrant). Negative for: Vomiting, Diarrhea Genitourinary Male: Negative for: Other (urinary problems) Physical Exam - Reviewed Nursing Documentation Reviewed: Yes Vital Signs Reviewed: Yes - Physical Exam Comments: GENERAL APPEARANCE: Patient is awake, alert, oriented x 3, in no acute distress SKIN: Warm, dry; (-) cyanosis. EYES: (-) conjunctival pallor, (-) scleral icterus. ENMT: Mucous membranes moist. NECK: (-) tenderness, (-) stiffness, (-) lymphadenopathy. CHEST AND RESPIRATORY: (-) rales, (-) rhonchi, (-) wheezes; breath sounds equal bilaterally. HEART AND CARDIOVASCULAR: (-) irregularity; (-) murmur, (-) gallop. ABDOMEN AND GI: (-) distention. Bowel sounds active; (+) tenderness in left lower quadrant. (+) mild guarding, (-) rebound, (-) palpable masses, (-) CVA tenderness. EXTREMITIES: (-) deformity, (-) edema, (+) distal pulses. NEURO AND PSYCH: Mental status as above; (-) focal findings. - Laboratory Results Result Diagrams: 01/01/18 06:04 01/01/18 06:04 - ECG O2 Sat by Pulse Oximetry: 98 (RA) Pulse Ox Interpretation: Normal Medical Decision Making Medical Decision Making: Time: 5:08 Plan: --CT Abd/Pelvis --CMP --Lipase --CBC --IV Fluids --Toradol 15 mg IVP --Zofran 4 mg iVP --Urine CUlture --Urinalysis Patient's previous records reviewed. Previous labs done on Dec 11 showed hemoglobin of 12 and heme occult (+). CT done on 11/26/17 which showed a 7 mm stone at the level of the pancreas, +diverticulitis and +enlarged prostate. Considering previous CT, labs and current symptoms, CT ordered to rule out acute diverticulitis. 06:[address] results still pending. ER made aware of case. Scribe Attestation: Documented by Gale Franklin, acting as a scribe for Jannie Lezama PA-C. Provider Scribe Attestation: All medical record entries made by the Scribe were at my direction and personally dictated by me. I have reviewed the chart and agree that the record accurately reflects my personal performance of the history, physical exam, medical decision making, and the department course for this patient. I have also personally directed, reviewed, and agree with the discharge instructions and disposition. Disposition - Clinical Impression Clinical Impression: Abdominal pain - Patient ED Disposition Is Patient to be Admitted: Transfer of Care (Case endorsed to Dr. Mcleod pending CT results and final disposition.) - Disposition Referrals: Hedy Franks MD [Staff Provider] - Disposition Time: 07:00 Condition: GOOD Prescriptions: Ondansetron ODT [Zofran ODT] 4 mg PO Q8H PRN #20 odt PRN Reason: Nausea/Vomiting Instructions: Acute Abdomen (Belly Pain) Forms: [employer] (Romansh)
[2018-01-01] MEDS: Sodium Chloride 0.9% 500 ML IV SCH ×5 (06:01→09:16)
[2018-01-01 06:19] LABS: SQUAMOUS EPITHIAL 1 /hpf (0-5); URINE BILIRUBIN NEGATIVE (NEGATIVE); URINE BLOOD NEGATIVE (NEGATIVE); URINE CLARITY CLEAR (Clear); URINE COLOR YELLOW (YELLOW); URINE GLUCOSE (UA) >=500 mg/dL (Normal); URINE LEUKOCYTE ESTERASE NEG Leu/uL (Negative); URINE PROTEIN NEGATIVE (NEGATIVE); URINE UROBILINOGEN 0.2-1.0 mg/dL (0.2-1.0)
[2018-01-01 06:22] LABS: BASO % 0.4 % (0.0-2.0); EOS # 0.2 K/uL (0.0-0.7); HEMOGLOBIN 13.2 g/dL (12.0-18.0); LYMPH # 1.7 K/uL (1.0-4.3); LYMPH % 22.1 % (20.0-40.0); MEAN CELL VOLUME 72.1 fl (80.0-94.0); MEAN CORPUSCULAR HEMOGLOBIN 22.9 pg (27.0-31.0); MEAN CORPUSCULAR HGB CONC 31.8 g/dL (33.0-37.0); MEAN PLATELET VOLUME 9.1 fl (7.2-11.7); MONO # 0.6 K/uL (0.0-0.8); MONO % 8.1 % (0.0-10.0); NEUT # 5.2 K/uL (1.8-7.0); NEUT % 66.4 % (50.0-75.0); RBC 5.75 Mil/uL (4.40-5.90); RED CELL DISTRIBUTION WIDTH 16.1 % (11.5-14.5); WHITE BLOOD COUNT 7.9 K/uL (4.8-10.8)
[2018-01-01 06:50] LABS: ALB/GLOB RATIO 1.1 (1.0-2.1); ALBUMIN 3.9 g/dL (3.5-5.0); ALT/SGPT 29 U/L (21-72); AST/SGOT 26 U/L (17-59); BLOOD UREA NITROGEN 24 mg/dl (9-20); CALCIUM 9.4 mg/dL (8.4-10.2); GFR AFRICAN-AMERICAN > 60; GFR NON-AFRICAN AMERICAN > 60; LIPASE 80 U/L (23-300)
[2018-01-01] MEDS ORDERED: Iohexol 300 100 ML IJ ONE (09:00)
[2018-01-01] MEDS ORDERED: Sodium Chloride 0.9% 100 ML ONE (09:00)
--- NOTE | 2018-01-01 09:59 | CT ---
PROCEDURE: CT Abdomen and Pelvis without intravenous contrast HISTORY: LLQ pain, h/o diverticulosis COMPARISON: 11/25/2017. TECHNIQUE: Technique. Contrast Dose: Radiation dose: Total exam DLP = mGy-cm. This CT exam was performed using one or more of the following dose reduction techniques: Automated exposure control, adjustment of the mA and/or kV according to patient size, and/or use of iterative reconstruction technique. FINDINGS: LOWER THORAX: Unremarkable. LIVER: Unremarkable. No gross lesion or ductal dilatation. GALLBLADDER AND BILE DUCTS: Re- demonstration of choledocholithiasis versus calcification adjacent to the is common bile duct. No biliary dilatation. Status post cholecystectomy. PANCREAS: Unremarkable. No gross lesion or ductal dilatation. SPLEEN: Unremarkable. ADRENALS: Unremarkable. No mass. KIDNEYS AND URETERS: Unremarkable. No hydronephrosis. No solid mass. VASCULATURE: Unremarkable. No aortic aneurysm. BOWEL: Colonic diverticulosis. . No obstruction. No gross mural thickening. APPENDIX: Unremarkable. Normal appendix. PERITONEUM: Unremarkable. No free fluid. No free air. LYMPH NODES: Unremarkable. No enlarged lymph nodes. BLADDER: Unremarkable. REPRODUCTIVE: Prostate enlargement. . BONES: No acute fracture. OTHER FINDINGS: None. IMPRESSION: No acute pathology. No significant change since prior exam.
--- NOTE | 2018-01-01 10:22 | ED PDOC ---
- Laboratory Results Result Diagrams: 01/01/18 06:04 01/01/18 06:04 - ECG O2 Sat by Pulse Oximetry: 98 Disposition - Clinical Impression Clinical Impression: Abdominal pain - POA Present On Arrival: None - Disposition Referrals: Hedy Franks MD [Staff Provider] - Disposition: Routine/Home Disposition Time: 10:21 Condition: GOOD Prescriptions: Ondansetron ODT [Zofran ODT] 4 mg PO Q8H PRN #20 odt PRN Reason: Nausea/Vomiting Instructions: Acute Abdomen (Belly Pain) Forms: [employer] (Nepali) Addendum Addendum: 01/01/18 07:00 Pt signed out by Dr. Higuera pending CT. 10:20 Pt slept in no distress during ED observation. Accession No. : [id number] Patient Name / ID : SONIA MEDINA / [id number] Exam Date : 01/01/2018 08:52:47 ( Approved ) Study Comment : Sex / Age : M / 72Y Creator : Daniel Swan MD Dictator : Daniel Swan MD Try Out Person : [employer] Consultant : Daniel Swan MD Approver2 : Report Date : 01/01/2018 09:58:28 My Comment : PROCEDURE: CT Abdomen and Pelvis without intravenous contrast HISTORY: LLQ pain, h/o diverticulosis COMPARISON: 11/25/2017. TECHNIQUE: Technique. Contrast Dose: Radiation dose: Total exam DLP = mGy-cm. This CT exam was performed using one or more of the following dose reduction techniques: Automated exposure control, adjustment of the mA and/or kV according to patient size, and/or use of iterative reconstruction technique. FINDINGS: LOWER THORAX: Unremarkable. LIVER: Unremarkable. No gross lesion or ductal dilatation. GALLBLADDER AND BILE DUCTS: Re- demonstration of choledocholithiasis versus calcification adjacent to the is common bile duct. No biliary dilatation. Status post cholecystectomy. PANCREAS: Unremarkable. No gross lesion or ductal dilatation. SPLEEN: Unremarkable. ADRENALS: Unremarkable. No mass. KIDNEYS AND URETERS: Unremarkable. No hydronephrosis. No solid mass. VASCULATURE: Unremarkable. No aortic aneurysm. BOWEL: Colonic diverticulosis. . No obstruction. No gross mural thickening. APPENDIX: Unremarkable. Normal appendix. PERITONEUM: Unremarkable. No free fluid. No free air. LYMPH NODES: Unremarkable. No enlarged lymph nodes. BLADDER: Unremarkable. REPRODUCTIVE: Prostate enlargement. . BONES: No acute fracture. OTHER FINDINGS: None. IMPRESSION: No acute pathology. No significant change since prior exam.
[2018-01-01 10:34] VITALS: BP 147/74; PULSE 78; RESP 18
== END 2018-01-01 10:33 | disposition home or self-care (01) ==
LOC: H.ER 03:49
DX: R10.9 Unspecified abdominal pain (principal); I12.9 Hypertensive chronic kidney disease with stage 1 through stage 4 chronic kidney disease, or unspecified chronic kidney disease; E11.22 Type 2 diabetes mellitus with diabetic chronic kidney disease; F17.210 Nicotine dependence, cigarettes, uncomplicated; N18.9 Chronic kidney disease, unspecified
CPT/HCPCS: 74176; 80053; 81003; 82948; 83690; 85025; 87086; 96361; 96374; 96375; 99284; J1885; J2405; J7040; Q9967

== ENCOUNTER 2018-01-03 16:44 | Emergency (ER) | payer MEDICARE, MEDICAID ==
[2018-01-03 16:44] VITALS: BMI 25.7
[2018-01-03 16:56] VITALS: BP 127/77; PULSE 92; RESP 18; TEMP 97.6; O2SAT 100
--- NOTE | 2018-01-03 17:12 | ED PDOC ---
Upper Extremity Pain/Injury Time Seen by Provider: 01/03/18 17:01 Chief Complaint (Nursing): Upper Extremity Problem/Injury Chief Complaint (Provider): Right shoulder pain History Per: Patient History/Exam Limitations: no limitations Onset/Duration Of Symptoms: Hrs (this morning.) Current Symptoms Are (Timing): Still Present Quality: "Pain" Additional Complaint(s): Kalia Lowe is a 72 year old right hand dominant male, with a past medical history of diabetes, who presents to the emergency department complaining of right shoulder pain s/p fall this morning. Patient states he slipped on ice and injured his right shoulder. He denies dizziness or syncope prior to fall, denies any head injury or LOC as a result of fall. Patient took tylenol but this did not help the pain. PMD: Rolf Saez Past Medical History Reviewed: Historical Data, Nursing Documentation, Vital Signs Vital Signs: Last Vital Signs Temp 97.6 F 01/03/18 16:53 Pulse 92 H 01/03/18 16:53 Resp 18 01/03/18 16:53 BP 127/77 01/03/18 16:53 Pulse Ox 100 01/03/18 16:53 - Medical History PMH: Diabetes, Gastritis, HTN, Kidney Stones, Chronic Kidney Disease - Surgical History Surgical History: Cholecystectomy, Coronary Stent, Tonsillectomy - Family History Family History: States: Diabetes - Living Arrangements Living Arrangements: Other (lives in skilled nursing) - Social History Current smoker - smoking cessation education provided: No Alcohol: None Drugs: Denies - Home Medications Home Medications: Ambulatory Orders Medication Instructions Recorded Aspirin [Ecotrin] 81 mg PO DAILY 11/25/17 Atorvastatin [Lipitor] 40 mg PO HS 11/25/17 Esomeprazole Magnesium [Nexium] 40 mg PO DAILY 11/25/17 Glipizide [Glipizide Xl] 10 mg PO BID 11/25/17 Insulin Glargine, Recombina 28 unit SC DAILY 11/25/17 [Lantus] Lisinopril [Zestril] 20 mg PO DAILY 11/25/17 SITagliptin [Januvia] 100 mg PO DAILY 11/25/17 Tamsulosin [Flomax] 0.4 mg PO DAILY 11/25/17 Ondansetron ODT [Zofran ODT] 4 mg PO Q8H PRN #20 odt 01/01/18 Ibuprofen [Motrin] 600 mg PO Q6 PRN #15 tab 01/03/18 - Allergies Allergies/Adverse Reactions: Allergies Allergy/AdvReac Type Severity Reaction Status Date / Time No Known Allergies Allergy Verified 01/01/18 04:34 Review of Systems ROS Statement: Except As Marked, All Systems Reviewed And Found Negative Musculoskeletal: Positive for: Other (right shoulder pain s/p trip and fall) Physical Exam - Reviewed Nursing Documentation Reviewed: Yes Vital Signs Reviewed: Yes - Physical Exam Appears: Positive for: Well, Non-toxic, No Acute Distress Head Exam: Positive for: ATRAUMATIC, NORMAL INSPECTION, NORMOCEPHALIC Skin: Positive for: Normal Color. Negative for: Rash Eye Exam: Positive for: Normal appearance Cardiovascular/Chest: Positive for: Regular Rate, Rhythm Respiratory: Positive for: Normal Breath Sounds Extremity: Positive for: Tenderness (diffused tenderness to right anterior shoulder.). Negative for: Normal ROM (decreased ROM to right shoulder secondary to pain), Deformity, Swelling Neurologic/Psych: Positive for: Alert, Oriented, Gait (steady) - ECG O2 Sat by Pulse Oximetry: 100 (RA) Pulse Ox Interpretation: Normal - Other Rad Right shoulder x-ray X-Ray: Interpreted by Me, Viewed By Me X-Ray Interpretation: no fx, no dis Medical Decision Making Medical Decision Making: Initial Impression: 72 y/o male with right shoulder pain Initial Plan: --Motrin tab 600 mg PO --Tylenol 325mg tab 975 mg PO --Shoulder Right [RAD] --Reevaluation Patient feels better after motrin dose. Rx motrin given. [place] declined, advised PMD follow up in 1-2 days. ~ Scribe Attestation: Documented by Mich Pearl, acting as a scribe for Joana Bonner PA-C. Provider Scribe Attestation: All medical record entries made by the Scribe were at my direction and personally dictated by me. I have reviewed the chart and agree that the record accurately reflects my personal performance of the history, physical exam, medical decision making, and the department course for this patient. I have also personally directed, reviewed, and agree with the discharge instructions and disposition. Disposition - Clinical Impression Clinical Impression: Shoulder injury - Patient ED Disposition Is Patient to be Admitted: No Counseled Patient/Family Regarding: Studies Performed, Diagnosis, Need For Followup, Rx Given - Disposition Referrals: Rolf Saez MD [Staff Provider] - Disposition: Routine/Home Disposition Time: 18:43 Condition: STABLE Additional Instructions: Ice and rest affected area. Take rx meds as directed as needed for pain. Follow up with primary care doctor. Prescriptions: Ibuprofen [Motrin] 600 mg PO Q6 PRN #15 tab PRN Reason: Pain, Moderate (4-7) Instructions: Shoulder Sprain (DC) Forms: [employer] (Guamanian)
--- NOTE | 2018-01-03 18:32 | RAD ---
PROCEDURE: Radiographs of the Right Shoulder HISTORY: trauma COMPARISON: No prior. FINDINGS: BONES: Normal. No fracture. JOINTS: Normal. Glenohumeral and acromioclavicular joints preserved. No osteoarthritis. Evidence of calcific SOFT TISSUES: Normal. OTHER FINDINGS: Evidence of calcific tendinosis IMPRESSION: No acute findings related to/accounting for the clinical presentation.
== END 2018-01-03 18:57 | disposition home or self-care (01) ==
LOC: H.ER 16:44
DX: S49.91XA Unspecified injury of right shoulder and upper arm, initial encounter (principal); W19.XXXA Unspecified fall, initial encounter; Y92.89 Other specified places as the place of occurrence of the external cause; I12.9 Hypertensive chronic kidney disease with stage 1 through stage 4 chronic kidney disease, or unspecified chronic kidney disease; Z79.4 Long term (current) use of insulin; Z79.82 Long term (current) use of aspirin; Z95.5 Presence of coronary angioplasty implant and graft; Z87.442 Personal history of urinary calculi

== ENCOUNTER 2018-01-15 00:56 | Emergency (ER) | payer MEDICARE, MEDICAID ==
[2018-01-15 00:56] VITALS: BMI 25.7
[2018-01-15] MEDS ORDERED: Sodium Chloride 0.9% 1,000 ML IV STA (01:29)
[2018-01-15] MEDS ORDERED: Insulin Regular 100 units/ml IV ONE (01:34)
--- NOTE | 2018-01-15 02:03 | ED PDOC ---
Hyperglycemia/Hypoglycemia Time Seen by Provider: 01/15/18 01:01 Chief Complaint (Nursing): High Blood Sugar Chief Complaint (Provider): High Blood Sugar History Per: Patient History/Exam Limitations: no limitations Onset/Duration Of Symptoms: Days (x2) Current Symptoms Are (Timing): Still Present Associated Infectious Symptoms: denies: Cough, Nausea, Vomiting, Diarrhea : The patient does not have any of the infectious symptoms listed except for those marked. Additional Complaint(s): Kalia Lowe is a 72 year old homeless male with a past medical history of diabetes, coronary artery disease, and hypertension, who is presenting to the ER with complaints of missing his insulin dosage and chronic right shoulder pain, onset 2 days ago. Patient states that he was unable to get his insulin prescription refilled and his blood sugar is at 350. He also reports falling on ice two months ago and goes to physiotherapy for injury and pain. Patient denies any chest pain, shortness of breath, nausea, vomiting, diarrhea, or cough. He offers no other medical complaints at this time. PMD: Rolf Saez Past Medical History Reviewed: Historical Data, Nursing Documentation, Vital Signs Vital Signs: Last Vital Signs Temp 98.3 F 01/15/18 01:05 Pulse 67 01/15/18 01:05 Resp 18 01/15/18 01:05 BP 190/64 H 01/15/18 01:05 Pulse Ox 99 01/15/18 01:05 - Medical History PMH: Diabetes, Gastritis, HTN, Kidney Stones, Chronic Kidney Disease - Surgical History Surgical History: Cholecystectomy, Coronary Stent, Tonsillectomy - Family History Family History: States: Diabetes - Social History Current smoker - smoking cessation education provided: Yes - Home Medications Home Medications: Ambulatory Orders Medication Instructions Recorded Aspirin [Ecotrin] 81 mg PO DAILY 11/25/17 Atorvastatin [Lipitor] 40 mg PO HS 11/25/17 Esomeprazole Magnesium [Nexium] 40 mg PO DAILY 11/25/17 Glipizide [Glipizide Xl] 10 mg PO BID 11/25/17 Insulin Glargine, Recombina 28 unit SC DAILY 11/25/17 [Lantus] Lisinopril [Zestril] 20 mg PO DAILY 11/25/17 SITagliptin [Januvia] 100 mg PO DAILY 11/25/17 Tamsulosin [Flomax] 0.4 mg PO DAILY 11/25/17 Ondansetron ODT [Zofran ODT] 4 mg PO Q8H PRN #20 odt 01/01/18 Ibuprofen [Motrin] 600 mg PO Q6 PRN #15 tab 01/03/18 - Allergies Allergies/Adverse Reactions: Allergies Allergy/AdvReac Type Severity Reaction Status Date / Time No Known Allergies Allergy Verified 01/15/18 01:17 Review of Systems ROS Statement: Except As Marked, All Systems Reviewed And Found Negative Cardiovascular: Negative for: Chest Pain Respiratory: Negative for: Cough, Shortness of Breath Gastrointestinal: Negative for: Nausea, Vomiting, Diarrhea Musculoskeletal: Positive for: Shoulder Pain (right) Physical Exam - Reviewed Nursing Documentation Reviewed: Yes Vital Signs Reviewed: Yes - Physical Exam Appears: Positive for: Non-toxic, No Acute Distress Head Exam: Positive for: ATRAUMATIC, NORMAL INSPECTION, NORMOCEPHALIC Skin: Positive for: Normal Color, Warm, Dry Eye Exam: Positive for: EOMI, Normal appearance, PERRL Neck: Positive for: Normal, Painless ROM, Supple Cardiovascular/Chest: Positive for: Regular Rate, Rhythm. Negative for: Murmur Respiratory: Positive for: Normal Breath Sounds. Negative for: Respiratory Distress Gastrointestinal/Abdominal: Positive for: Normal Exam, Soft. Negative for: Tenderness Back: Positive for: Normal Inspection. Negative for: L CVA Tenderness, R CVA Tenderness, Vertebral Tenderness Extremity: Positive for: Normal ROM. Negative for: Pedal Edema, Deformity, Swelling Neurologic/Psych: Positive for: Alert, Oriented. Negative for: Motor/Sensory Deficits - Laboratory Results Result Diagrams: 01/15/18 03:00 01/15/18 03:00 - ECG O2 Sat by Pulse Oximetry: 99 (RA) Pulse Ox Interpretation: Normal Medical Decision Making Medical Decision Making: Time: 1:29 Impression: Initial Plan: --EKG --CMP --ED Urine Dipstick --CBC --Glucose, POC --Humulin R 6 units IV --IV Fluids --Toradol 10 mg IVP 3:20 Labs were reviewed and showed no clinically significant abnormalities except for elevated blood sugar. Patient's Accucheck improved in ER. He will collect a prescription for insulin from his PMD tomorrow. Patient encouraged to take his insulin regularly and return is symptoms return or worsen. Upon provider evaluation, patient is stable for discharge home. Scribe Attestation: Documented by Gale Franklin, acting as a scribe for Shamir Grijalva MD. Provider Scribe Attestation: All medical record entries made by the Scribe were at my direction and personally dictated by me. I have reviewed the chart and agree that the record accurately reflects my personal performance of the history, physical exam, medical decision making, and the department course for this patient. I have also personally directed, reviewed, and agree with the discharge instructions and disposition. Disposition - Clinical Impression Clinical Impression: Hyperglycemia - Patient ED Disposition Is Patient to be Admitted: No - Disposition Disposition: Routine/Home Disposition Time: 03:25 Condition: STABLE Instructions: Blood Glucose Monitoring, The ABCs of Diabetes Forms: [employer] (Citizen Of [place])
[2018-01-15] MEDS ORDERED: Insulin Regular 100 units/ml ONE (02:33)
[2018-01-15 03:06] LABS: BASO # 0.1 K/uL (0.0-0.2); BASO % 1.8 % (0.0-2.0); EOS # 0.3 K/uL (0.0-0.7); EOS % 4.9 % (0.0-4.0); HEMOGLOBIN 12.5 g/dL (12.0-18.0); LYMPH # 1.9 K/uL (1.0-4.3); LYMPH % 28.3 % (20.0-40.0); MEAN CELL VOLUME 72.5 fl (80.0-94.0); MEAN CORPUSCULAR HEMOGLOBIN 22.7 pg (27.0-31.0); MEAN CORPUSCULAR HGB CONC 31.3 g/dL (33.0-37.0); MEAN PLATELET VOLUME 9.3 fl (7.2-11.7); MONO # 0.7 K/uL (0.0-0.8); MONO % 10.3 % (0.0-10.0); NEUT # 3.6 K/uL (1.8-7.0); NEUT % 54.7 % (50.0-75.0); RBC 5.5 Mil/uL (4.40-5.90); RED CELL DISTRIBUTION WIDTH 15.9 % (11.5-14.5); WHITE BLOOD COUNT 6.6 K/uL (4.8-10.8)
[2018-01-15 03:18] LABS: ALB/GLOB RATIO 1.1 (1.0-2.1); ALBUMIN 3.7 g/dL (3.5-5.0); ALT/SGPT 31 U/L (21-72); AST/SGOT 16 U/L (17-59); BLOOD UREA NITROGEN 22 mg/dl (9-20); CALCIUM 9.5 mg/dL (8.4-10.2); GFR AFRICAN-AMERICAN > 60; GFR NON-AFRICAN AMERICAN > 60
[2018-01-15 06:35] VITALS: BP 148/68; PULSE 72; RESP 16; TEMP 98.5; O2SAT 100
== END 2018-01-15 05:25 | disposition home or self-care (01) ==
LOC: H.ER 00:56
DX: E11.65 Type 2 diabetes mellitus with hyperglycemia (principal); E11.22 Type 2 diabetes mellitus with diabetic chronic kidney disease; Z79.4 Long term (current) use of insulin; Z95.5 Presence of coronary angioplasty implant and graft; F17.200 Nicotine dependence, unspecified, uncomplicated; I12.9 Hypertensive chronic kidney disease with stage 1 through stage 4 chronic kidney disease, or unspecified chronic kidney disease; Z79.82 Long term (current) use of aspirin
CPT/HCPCS: 80053; 82948; 85025; 96374; 99283; J1885; J7040

== ENCOUNTER 2018-02-02 00:39 | Emergency (ER) | payer MEDICARE, MEDICAID ==
[2018-02-02 01:01] VITALS: BMI 26.2
[2018-02-02 01:04] VITALS: BP 172/81; PULSE 71; RESP 16; TEMP 97.2; O2SAT 99
[2018-02-02] MEDS ORDERED: Alum-Mag Hydrox-Simethicone Susp (30 mL) PO STA (02:02)
--- NOTE | 2018-02-02 02:05 | ED PDOC ---
HPI: Abdomen Time Seen by Provider: 02/02/18 01:09 Chief Complaint (Nursing): Abdominal Pain Chief Complaint (Provider): abdominal pain History Per: Patient History/Exam Limitations: no limitations Onset/Duration Of Symptoms: Hrs Location Of Pain/Discomfort: Epigastric Additional Complaint(s): 72 y/o male presents for evaluation of upper abdominal pain x 1 day. Associated vomiting x 1. Denies fever, chest pain, shortness of breath, palpitations, changes in bowel movements, urinary symptoms. Past Medical History Reviewed: Historical Data, Nursing Documentation, Vital Signs Vital Signs: Last Vital Signs Temp 97.2 F L 02/02/18 01:01 Pulse 71 02/02/18 01:01 Resp 16 02/02/18 01:01 BP 172/81 H 02/02/18 01:01 Pulse Ox 99 02/02/18 04:58 - Medical History PMH: Diabetes, Gastritis, HTN, Kidney Stones, Chronic Kidney Disease - Surgical History Surgical History: Cholecystectomy, Coronary Stent, Tonsillectomy - Family History Family History: States: Diabetes - Home Medications Home Medications: Ambulatory Orders Medication Instructions Recorded Aspirin [Ecotrin] 81 mg PO DAILY 11/25/17 Atorvastatin [Lipitor] 40 mg PO HS 11/25/17 Esomeprazole Magnesium [Nexium] 40 mg PO DAILY 11/25/17 Glipizide [Glipizide Xl] 10 mg PO BID 11/25/17 Insulin Glargine, Recombina 28 unit SC DAILY 11/25/17 [Lantus] Lisinopril [Zestril] 20 mg PO DAILY 11/25/17 SITagliptin [Januvia] 100 mg PO DAILY 11/25/17 Tamsulosin [Flomax] 0.4 mg PO DAILY 11/25/17 Ondansetron ODT [Zofran ODT] 4 mg PO Q8H PRN #20 odt 01/01/18 Ibuprofen [Motrin] 600 mg PO Q6 PRN #15 tab 01/03/18 Famotidine [Pepcid] 20 mg PO BID #20 tab 02/02/18 Ondansetron ODT [Zofran ODT] 4 mg PO Q8 PRN #10 odt 02/02/18 - Allergies Allergies/Adverse Reactions: Allergies Allergy/AdvReac Type Severity Reaction Status Date / Time No Known Allergies Allergy Verified 02/02/18 01:01 Review of Systems ROS Statement: Except As Marked, All Systems Reviewed And Found Negative Gastrointestinal: Positive for: Abdominal Pain Physical Exam - Reviewed Nursing Documentation Reviewed: Yes Vital Signs Reviewed: Yes - Physical Exam Appears: Positive for: Well, Non-toxic, No Acute Distress Head Exam: Positive for: ATRAUMATIC, NORMAL INSPECTION, NORMOCEPHALIC Skin: Positive for: Normal Color Eye Exam: Positive for: Normal appearance ENT: Positive for: Normal ENT Inspection Cardiovascular/Chest: Positive for: Regular Rate, Rhythm Respiratory: Positive for: Normal Breath Sounds Gastrointestinal/Abdominal: Positive for: Bowel Sounds, Soft, Tenderness ( epigastric) Back: Positive for: Normal Inspection Extremity: Positive for: Normal ROM Neurologic/Psych: Positive for: Alert, Oriented - Laboratory Results Result Diagrams: 02/02/18 02:54 02/02/18 02:54 - ECG ECG: Positive for: Viewed By Me (reviewed by ED attending) ECG Rhythm: Positive for: Sinus Rhythm, 1st Degree Heart Block O2 Sat by Pulse Oximetry: 99 - Progress ED Course And Treament: labs, ekg, Maalox PO On re-eval, patient states he is feeling better. Tolerating PO Patient educated on findings, discharged with rx Pepcid, zofran Advised follow up PMD 2-3 days. Return precautions given Disposition - Clinical Impression Clinical Impression: Abdominal discomfort - Patient ED Disposition Is Patient to be Admitted: No Counseled Patient/Family Regarding: Studies Performed, Diagnosis, Need For Followup, Rx Given - Disposition Referrals: Rolf Saez MD [Primary Care Provider] - Disposition: Routine/Home Disposition Time: 05:00 Condition: IMPROVED Prescriptions: Famotidine [Pepcid] 20 mg PO BID #20 tab Ondansetron ODT [Zofran ODT] 4 mg PO Q8 PRN #10 odt PRN Reason: Nausea/Vomiting Instructions: Gastritis Forms: [employer] (Dominican)
[2018-02-02] MEDS ORDERED: Alum-Mag Hydrox-Simethicone Susp (30 mL) ONE (02:44)
[2018-02-02 02:57] LABS: BASO # 0.2 K/uL (0.0-0.2); BASO % 1.8 % (0.0-2.0); EOS # 0.3 K/uL (0.0-0.7); EOS % 3.2 % (0.0-4.0); HEMOGLOBIN 13.1 g/dL (12.0-18.0); LYMPH # 2.2 K/uL (1.0-4.3); LYMPH % 25.4 % (20.0-40.0); MEAN CELL VOLUME 71.3 fl (80.0-94.0); MEAN CORPUSCULAR HEMOGLOBIN 23.1 pg (27.0-31.0); MEAN CORPUSCULAR HGB CONC 32.3 g/dL (33.0-37.0); MEAN PLATELET VOLUME 8.8 fl (7.2-11.7); MONO # 0.8 K/uL (0.0-0.8); MONO % 9.1 % (0.0-10.0); NEUT # 5.2 K/uL (1.8-7.0); NEUT % 60.5 % (50.0-75.0); NRBC % 0.1 % (0.0-0.0); RBC 5.67 Mil/uL (4.40-5.90); RED CELL DISTRIBUTION WIDTH 15.8 % (11.5-14.5); WHITE BLOOD COUNT 8.7 K/uL (4.8-10.8)
[2018-02-02 03:21] LABS: LIPASE 61 U/L (23-300)
[2018-02-02 03:24] LABS: ALB/GLOB RATIO 1.1 (1.0-2.1); ALBUMIN 3.6 g/dL (3.5-5.0); ALT/SGPT 41 U/L (21-72); AST/SGOT 20 U/L (17-59); BLOOD UREA NITROGEN 21 mg/dl (9-20); CALCIUM 8.9 mg/dL (8.4-10.2); GFR AFRICAN-AMERICAN > 60; GFR NON-AFRICAN AMERICAN > 60
--- NOTE | 2018-02-02 10:33 | CARD ---
APPROVED REPORT EKG Measurement Heart [id number] <Conclusion> Sinus rhythm with 1st degree AV block Left axis deviation Inferior infarct, age undetermined Abnormal ECG
== END 2018-02-02 06:45 | disposition home or self-care (01) ==
LOC: H.ER 00:39
DX: R10.9 Unspecified abdominal pain (principal); I12.9 Hypertensive chronic kidney disease with stage 1 through stage 4 chronic kidney disease, or unspecified chronic kidney disease; Z79.4 Long term (current) use of insulin; Z79.82 Long term (current) use of aspirin; Z95.5 Presence of coronary angioplasty implant and graft

== ENCOUNTER 2018-02-08 06:18 | Emergency (ER) | payer MEDICARE, MEDICAID ==
[2018-02-08 06:19] VITALS: BMI 26.2
--- NOTE | 2018-02-08 07:36 | ED PDOC ---
Lower Extremity Pain/Injury <Marcus Mahmood Y - Last Filed: 02/08/18 12:27> Chief Complaint (Provider): I have an ulcer on my foot History Per: Patient History/Exam Limitations: no limitations Onset/Duration Of Symptoms: Days (2) Current Symptoms Are (Timing): Still Present Additional Complaint(s): 72 year old undomiciled male presents for evaluation of his right foot cellulitis. He sees a custom harvester on [facility], last seen 2 days ago. His foot was marked and he was started on bactrim, advised to go to ER if redness extended above the marking prompting his visit to ED. Directory Clerk is on [address] He denies any fevers or chills, no pain in his right foot. His next follow up appointment is tomorrow morning. PMD: [facility] - Risk Factors DVT Risk Factors: Pos: None <Melissa Payan - Last Filed: 02/09/18 09:45> Time Seen by Provider: 02/08/18 07:12 Chief Complaint (Nursing): Lower Extremity Problem/Injury Past Medical History Vital Signs: Last Vital Signs Temp 98 F 02/08/18 11:25 Pulse 71 02/08/18 11:25 Resp 20 02/08/18 11:25 BP 126/73 02/08/18 11:25 Pulse Ox 98 02/08/18 11:35 <Marcus Mahmood Y - Last Filed: 02/08/18 12:27> Vital Signs: Last Vital Signs Temp 98.2 F 02/08/18 06:47 Pulse 89 02/08/18 06:47 Resp 16 02/08/18 06:47 BP 130/72 02/08/18 06:47 Pulse Ox 98 02/08/18 06:47 - Medical History PMH: Diabetes, Gastritis, HTN, Kidney Stones, Chronic Kidney Disease - Surgical History Surgical History: Cholecystectomy, Coronary Stent, Tonsillectomy - Family History Family History: States: Diabetes - Living Arrangements Living Arrangements: Other (undomiciled) <Melissa Payan - Last Filed: 02/09/18 09:45> - Home Medications Home Medications: Ambulatory Orders Medication Instructions Recorded Aspirin [Ecotrin] 81 mg PO DAILY 11/25/17 Atorvastatin [Lipitor] 40 mg PO HS 11/25/17 Esomeprazole Magnesium [Nexium] 40 mg PO DAILY 11/25/17 Glipizide [Glipizide Xl] 10 mg PO BID 11/25/17 Insulin Glargine, Recombina 28 unit SC DAILY 11/25/17 [Lantus] Lisinopril [Zestril] 20 mg PO DAILY 11/25/17 SITagliptin [Januvia] 100 mg PO DAILY 11/25/17 Tamsulosin [Flomax] 0.4 mg PO DAILY 11/25/17 Ondansetron ODT [Zofran ODT] 4 mg PO Q8H PRN #20 odt 01/01/18 Ibuprofen [Motrin] 600 mg PO Q6 PRN #15 tab 01/03/18 Famotidine [Pepcid] 20 mg PO BID #20 tab 02/02/18 Ondansetron ODT [Zofran ODT] 4 mg PO Q8 PRN #10 odt 02/02/18 - Allergies Allergies/Adverse Reactions: Allergies Allergy/AdvReac Type Severity Reaction Status Date / Time No Known Allergies Allergy Verified 02/08/18 06:47 Review of Systems Constitutional: Negative for: Fever, Chills, Malaise Eyes: Negative for: Vision Change ENT: Negative for: Nose Congestion Cardiovascular: Negative for: Chest Pain, Light Headedness Respiratory: Negative for: Cough, Shortness of Breath Gastrointestinal: Negative for: Nausea, Vomiting, Abdominal Pain, Diarrhea Genitourinary Male: Negative for: Dysuria Musculoskeletal: Negative for: Foot Pain Skin: Positive for: Rash (on foot) Neurological: Negative for: Confusion, Altered Mental Status, Dizziness <Melissa Payan - Last Filed: 02/09/18 09:45> Physical Exam - Reviewed Vital Signs Reviewed: Yes - Physical Exam Appears: Positive for: Well, Non-toxic, No Acute Distress Head Exam: Positive for: ATRAUMATIC, NORMAL INSPECTION Skin: Positive for: Normal Color, Warm, DRY Eye Exam: Positive for: EOMI, Normal appearance, PERRL Neck: Positive for: Normal, Painless ROM Respiratory: Positive for: CNT, Normal Breath Sounds (normal respiratory effort) Gastrointestinal/Abdominal: Positive for: Normal Exam, Bowel Sounds, Soft. Negative for: Tenderness Extremity: Positive for: Normal ROM (right foot: appears moderately edematous, + warthm, smalle amount of erythema along anteromedial foot marking), Pedal Edema (trace right sided), Swelling (right foot), Other (warmth of right foot, left foot cold). Negative for: Calf Tenderness (bilaterally) Neurologic/Psych: Positive for: Alert, Oriented <PayanIngrid chavezgogo - Last Filed: 02/09/18 09:45> - Laboratory Results Result Diagrams: 02/08/18 11:22 <Marcus Mahmood - Last Filed: 02/08/18 12:27> - Laboratory Results Result Diagrams: 02/08/18 11:22 - ECG O2 Sat by Pulse Oximetry: 98 <PayanIngrid chavezgogo - Last Filed: 02/09/18 09:45> Medical Decision Making Medical Decision Makin72 year old male with multiple foot ulcers and cellulitis of right foot. Patient is afebrile, without pain. Will obtain Podiatry evaluation: called and spoke with resident. 9:00 patient lying in stretcher, comfortably. awaiting eval from podiatry 11:30 Foot XR done. <PayanIngrid chavezgogo - Last Filed: 02/09/18 09:45> Disposition <Marcus Mahmood Y - Last Filed: 02/08/18 12:27> - Disposition Disposition: Routine/Home Disposition Time: 12:30 <Payan,Melissa - Last Filed: 02/09/18 09:45> - Clinical Impression Clinical Impression: Cellulitis of foot - Disposition Condition: IMPROVED Additional Instructions: follow up with your custom harvester as instructed return to the ED with any worsening or concerning symptoms Instructions: Cellulitis (Skin Infection), Adult (DC) Forms: [employer] (Georgian) - PA / ELECTRICAL LINE SPLICER / Resident Statement / has reviewed & agrees with the documentation as recorded. / has examined the patient and agrees with the treatment plan. <Marcus Mahmood Y - Last Filed: 02/08/18 12:27> Progress Note - Review of Symptoms Other Systems: Time: 12:27 72 y/o male presents to ED with right foot cellulitis. Patient has a custom harvester he follows with who started him on antibiotics and told him to come here if his cellulitis gets worse. He still has some cellulitis but has no new symptoms, and denies fever. Directory Clerk here saw him. CBC shows normal white count. XR Foot is normal. Patient is stable for discharge. Continue with antibiotics prescribed and follow up with custom harvester. Scribe Attestation: Documented by Akil Sultana, acting as a scribe for Marcus Mahmood MD Provider Scribe Attestation: All medical record entries made by the Scribe were at my direction and personally dictated by me. I have reviewed the chart and agree that the record accurately reflects my personal performance of the history, physical exam, medical decision making, and the department course for this patient. I have also personally directed, reviewed, and agree with the discharge instructions and disposition. <Marcus Mahmood - Last Filed: 02/08/18 12:27>
[2018-02-08 11:25] VITALS: TEMP 98
[2018-02-08 11:38] LABS: BASO # 0.1 K/uL (0.0-0.2); BASO % 0.9 % (0.0-2.0); EOS # 0.3 K/uL (0.0-0.7); EOS % 3.6 % (0.0-4.0); HEMOGLOBIN 13.6 g/dL (12.0-18.0); LYMPH # 2.3 K/uL (1.0-4.3); LYMPH % 30.1 % (20.0-40.0); MEAN CELL VOLUME 71.7 fl (80.0-94.0); MEAN CORPUSCULAR HEMOGLOBIN 22.7 pg (27.0-31.0); MEAN CORPUSCULAR HGB CONC 31.7 g/dL (33.0-37.0); MONO # 0.7 K/uL (0.0-0.8); MONO % 9.4 % (0.0-10.0); NEUT # 4.3 K/uL (1.8-7.0); NRBC % 0.1 % (0.0-0.0); RBC 5.98 Mil/uL (4.40-5.90); RED CELL DISTRIBUTION WIDTH 15.6 % (11.5-14.5); WHITE BLOOD COUNT 7.6 K/uL (4.8-10.8)
--- NOTE | 2018-02-08 12:52 | RAD ---
PROCEDURE: Right Foot Radiographs. HISTORY: r foot pain COMPARISON: None. FINDINGS: BONES: Bone alignment and mineralization are normal. There is no acute displaced fracture or bone destruction JOINTS: Normal. SOFT TISSUES: Normal. OTHER FINDINGS: None. IMPRESSION: No acute fracture or dislocation.
--- NOTE | 2018-02-08 17:58 | CP.PCM.CON ---
History of Present Illness - History of Present Illness History of Present Illness: 72 year old male seen in the ED complaining of ulcerations to his right first and second digit. Pt states that he went to his normal Senior Core Java Developer, Dr. Stokes two days ago and she kasie a line on his dorsal foot delineating where erythematous changes had occurred secondary to his ulcerations. She gave the patient Rx for Bactrim and told him to go to ED if erythema spread beyond the line that she had drawn. Patient states that this morning he noticed that the erythema had spread beyond the line so he came to the ED. He denies any drainage , malodor or other clinical signs of infection from his ulcers other than the erythema. He states that he has a follow up appointment with her tomorrow. He denies any further pedal complaints at this time. He denies any recent N/V/F/C/ CP/SOB/D/posterior calf pain when squeezed. Review of Systems - Review of Systems Review of Systems: ROS as per HPI Past Patient History - Infectious Disease Hx of Infectious Diseases: None - Past Medical History & Family History Past Medical History?: Yes - Past Social History Smoking Status: Heavy Smoker > 10 Cigarettes Daily - CARDIAC Hx Hypertension: Yes - PULMONARY Hx Respiratory Disorders: No - NEUROLOGICAL Hx Neurological Disorder: No - HEENT Hx HEENT Problems: Yes Hx Cataracts: Yes - RENAL Hx Chronic Kidney Disease: Yes Hx Kidney Stones: Yes - ENDOCRINE/METABOLIC Hx Endocrine Disorders: Yes Hx Diabetes Mellitus Type 2: Yes - HEMATOLOGICAL/ONCOLOGICAL Hx Blood Disorders: No - INTEGUMENTARY Hx Dermatological Problems: No - MUSCULOSKELETAL/RHEUMATOLOGICAL Hx Musculoskeletal Disorders: No Hx Falls: No - GASTROINTESTINAL Hx Gastritis: Yes - GENITOURINARY/GYNECOLOGICAL Hx Genitourinary Disorders: No - PSYCHIATRIC Hx Psychophysiologic Disorder: No Hx Substance Use: No - SURGICAL HISTORY Hx Cholecystectomy: Yes Hx Coronary Stent: Yes Hx Tonsillectomy: Yes - ANESTHESIA Hx Anesthesia: Yes Hx Anesthesia Reactions: No Hx Malignant Hyperthermia: No Meds Allergies/Adverse Reactions: Allergies Allergy/AdvReac Type Severity Reaction Status Date / Time No Known Allergies Allergy Verified 02/08/18 06:47 Physical Exam - Constitutional Appears: Well, Non-toxic, No Acute Distress - Extremities Exam Additional comments: RLE focused exam: Vasc: DP/PT pulses fully palpable 2/4 b/l. Skin temperature warm to warm from proximal to distal. CFT < 3 seconds to all digits b/l. Mild edema noted surrounding ulceration sites of first and second digit Neuro: Epicritic and protective sensation grossly diminished b/l Derm: Superficial ulceration noted to distal, medial second digit with beefy, red base noted. Ulceration measuring roughly 0.5 cm x 0.5 cm x 0 3 cm noted to medial hallux with surrounding hyperkeratotic tissue. For both ulcers no drainage, no probe to bone, no malodor, no tracking, tunneling or undermining, no other clinical signs of infection. Erythema is noted to have significantly retracted from the line that patient's normal blunger kasie on his foot suggesting that the erythematous changes are improving at this time secondary to patient's PO abx MSK: No POP to either ulceration site - Neurological Exam Neurological exam: Alert, Oriented x3 - Psychiatric Exam Psychiatric exam: Normal Affect, Normal Mood Results - Vital Signs Recent Vital Signs: Last Vital Signs Temp 98 F 02/08/18 11:25 Pulse 71 02/08/18 11:25 Resp 20 02/08/18 11:25 BP 126/73 02/08/18 11:25 Pulse Ox 98 02/08/18 11:35 - Labs Result Diagrams: 02/08/18 11:22 Labs: Laboratory Results - last 24 hr 02/08/18 11:22 WBC 7.6 RBC 5.98 H Hgb 13.6 Hct 42.9 MCV 71.7 L MCH 22.7 L MCHC 31.7 L RDW 15.6 H Plt Count 218 MPV 9.0 Neut % (Auto) 56.0 Lymph % (Auto) 30.1 [place] % (Auto) 9.4 Eos % (Auto) 3.6 Baso % (Auto) 0.9 Neut # (Auto) 4.3 Lymph # (Auto) 2.3 [place] # (Auto) 0.7 Eos # (Auto) 0.3 Baso # (Auto) 0.1 Assessment & Plan - Assessment and Plan (Free Text) Assessment: 72 year old male seen in ED for mildly infected ulcerations to first and second digit of left foot, improving Plan: Patient seen and evaluated in ED Charts, labs, vitals reviewed Afebrile, absent leukocytosis Plan discussed with attending Dr. Zhang Patient instructed to continue with his PO abx Patient instructed to follow up with his regularly scheduled blunger tomorrow Patient's foot dressed with Bacitracin, DSD Patient instructed to return to ED if he begins to notice any local or constitutional signs of infection - Date & Time Date: 02/08/18 Time: 18:09
[2018-02-08 19:21] VITALS: BP 138/63; PULSE 72; RESP 14
[2018-02-09 09:46] VITALS: O2SAT 98
== END 2018-02-08 12:40 | disposition home or self-care (01) ==
LOC: H.ER 06:18
DX: L03.115 Cellulitis of right lower limb (principal); I12.9 Hypertensive chronic kidney disease with stage 1 through stage 4 chronic kidney disease, or unspecified chronic kidney disease; Z79.4 Long term (current) use of insulin; E11.22 Type 2 diabetes mellitus with diabetic chronic kidney disease; E11.621 Type 2 diabetes mellitus with foot ulcer

== ENCOUNTER 2018-02-09 22:58 | Emergency (ER) | payer MEDICARE, MEDICAID ==
[2018-02-09 22:58] VITALS: BMI 26.2
--- NOTE | 2018-02-09 23:16 | ED PDOC ---
HPI: General Adult Time Seen by Provider: 02/09/18 23:16 Chief Complaint (Nursing): Abdominal Pain Chief Complaint (Provider): abd pain, diarrhea History Per: Patient Additional Complaint(s): 72-year-old non-domiciled male presents to emergency department with abdominal pain and diarrhea that started earlier today. No associated vomiting, fever or chills. Patient denies chest pain or shortness of breath. PMD: none Past Medical History Reviewed: Historical Data, Nursing Documentation, Vital Signs Vital Signs: Last Vital Signs Temp 98.2 F 02/10/18 03:37 Pulse 66 02/10/18 03:37 Resp 18 02/10/18 03:37 BP 122/53 L 02/10/18 03:37 Pulse Ox 99 02/10/18 03:37 - Medical History PMH: Diabetes, Gastritis, HTN, Kidney Stones, Chronic Kidney Disease - Surgical History Surgical History: Cholecystectomy, Coronary Stent, Tonsillectomy - Family History Family History: States: Diabetes - Living Arrangements Living Arrangements: Other (non-domiciled) - Social History Current smoker - smoking cessation education provided: No Alcohol: None Drugs: Denies - Home Medications Home Medications: Ambulatory Orders Medication Instructions Recorded Aspirin [Ecotrin] 81 mg PO DAILY 11/25/17 Atorvastatin [Lipitor] 40 mg PO HS 11/25/17 Esomeprazole Magnesium [Nexium] 40 mg PO DAILY 11/25/17 Glipizide [Glipizide Xl] 10 mg PO BID 11/25/17 Insulin Glargine, Recombina 28 unit SC DAILY 11/25/17 [Lantus] Lisinopril [Zestril] 20 mg PO DAILY 11/25/17 SITagliptin [Januvia] 100 mg PO DAILY 11/25/17 Tamsulosin [Flomax] 0.4 mg PO DAILY 11/25/17 Ondansetron ODT [Zofran ODT] 4 mg PO Q8H PRN #20 odt 01/01/18 Ibuprofen [Motrin] 600 mg PO Q6 PRN #15 tab 01/03/18 Famotidine [Pepcid] 20 mg PO BID #20 tab 02/02/18 Ondansetron ODT [Zofran ODT] 4 mg PO Q8 PRN #10 odt 02/02/18 - Allergies Allergies/Adverse Reactions: Allergies Allergy/AdvReac Type Severity Reaction Status Date / Time No Known Allergies Allergy Verified 02/08/18 06:47 Review of Systems ROS Statement: Except As Marked, All Systems Reviewed And Found Negative Constitutional: Negative for: Fever, Chills Cardiovascular: Negative for: Chest Pain Respiratory: Negative for: Cough Gastrointestinal: Positive for: Abdominal Pain, Diarrhea. Negative for: Nausea , Vomiting Genitourinary Male: Negative for: Dysuria Neurological: Negative for: Headache, Dizziness Physical Exam - Reviewed Nursing Documentation Reviewed: Yes Vital Signs Reviewed: Yes - Physical Exam Appears: Positive for: Well, Non-toxic, No Acute Distress Skin: Negative for: Rash Eye Exam: Positive for: Normal appearance Cardiovascular/Chest: Positive for: Regular Rate, Rhythm Respiratory: Positive for: Normal Breath Sounds Gastrointestinal/Abdominal: Positive for: Soft. Negative for: Tenderness, Distended, Guarding, Rebound Back: Negative for: L CVA Tenderness, R CVA Tenderness Extremity: Positive for: Normal ROM Neurologic/Psych: Positive for: Alert, Oriented - Laboratory Results Result Diagrams: 02/10/18 00:14 02/10/18 00:14 Urine dip results: Negative for: Leukocyte Esterase, Blood, Nitrate, Ketones, Glucose, Bilirubin, Protein - ECG O2 Sat by Pulse Oximetry: 99 Pulse Ox Interpretation: Normal Medical Decision Making Medical Decision Makin72 y/o with abd pain and diarrhea Plan: CBC CMP Lipase Urine dip IVF Patient is aware of all diagnostic testing results, all questions answered. Upon re-examination patient's abdomen is soft, nontender. Patient was advised to drink plenty fluids and was given dietary instructions for relief of diarrhea. He was referred to clinic for follow up. Disposition - Clinical Impression Clinical Impression: Diarrhea - Patient ED Disposition Is Patient to be Admitted: No Counseled Patient/Family Regarding: Studies Performed, Diagnosis, Need For Followup, Rx Given - Disposition Referrals: [facility] [Outside] Disposition: Routine/Home Disposition Time: 06:00 Condition: STABLE Additional Instructions: FOLLOW BRAT DIET - BANANAS, RICE, APPLES, TOAST, AND DRINK PLENTY OF FLUIDS. FOLLOW UP WITH CLINIC IN 2-3 DAYS. Instructions: Diarrhea in Adolescents and Adults Forms: [employer] (Palestinian) Results - Lab Results Lab Results: 02/10/18 02/10/18 00:14 00:14 WBC 6.5 RBC 5.54 Hgb 12.6 Hct 39.3 MCV 71.0 L MCH 22.7 L MCHC 31.9 L RDW 15.4 H Plt Count 188 MPV 8.7 Neut % (Auto) 52.9 Lymph % (Auto) 31.8 [place] % (Auto) 9.9 Eos % (Auto) 4.3 H Baso % (Auto) 1.1 Neut # (Auto) 3.4 Lymph # (Auto) 2.1 [place] # (Auto) 0.6 Eos # (Auto) 0.3 Baso # (Auto) 0.1 Sodium 143 Potassium 4.5 Chloride 103 Carbon Dioxide 25 Anion Gap 20 BUN 26 H Creatinine 1.0 Est GFR ( Amer) > 60 Est GFR (Non-Af Amer) > 60 Random Glucose 273 H Calcium 9.1 Total Bilirubin 0.3 AST 33 ALT 32 Alkaline Phosphatase 96 Total Protein 7.0 Albumin 3.6 Globulin 3.4 Albumin/Globulin Ratio 1.1 Lipase 99
[2018-02-09] MEDS ORDERED: Sodium Chloride 0.9% 1,000 ML IV STA (23:26)
[2018-02-10 00:17] LABS: BASO # 0.1 K/uL (0.0-0.2); BASO % 1.1 % (0.0-2.0); EOS # 0.3 K/uL (0.0-0.7); EOS % 4.3 % (0.0-4.0); HEMOGLOBIN 12.6 g/dL (12.0-18.0); LYMPH # 2.1 K/uL (1.0-4.3); LYMPH % 31.8 % (20.0-40.0); MEAN CORPUSCULAR HEMOGLOBIN 22.7 pg (27.0-31.0); MEAN CORPUSCULAR HGB CONC 31.9 g/dL (33.0-37.0); MEAN PLATELET VOLUME 8.7 fl (7.2-11.7); MONO # 0.6 K/uL (0.0-0.8); MONO % 9.9 % (0.0-10.0); NEUT # 3.4 K/uL (1.8-7.0); NEUT % 52.9 % (50.0-75.0); NRBC % 0.1 % (0.0-0.0); RBC 5.54 Mil/uL (4.40-5.90); RED CELL DISTRIBUTION WIDTH 15.4 % (11.5-14.5); WHITE BLOOD COUNT 6.5 K/uL (4.8-10.8)
[2018-02-10 00:27] LABS: ALB/GLOB RATIO 1.1 (1.0-2.1); ALBUMIN 3.6 g/dL (3.5-5.0); ALT/SGPT 32 U/L (21-72); AST/SGOT 33 U/L (17-59); BLOOD UREA NITROGEN 26 mg/dl (9-20); CALCIUM 9.1 mg/dL (8.4-10.2); GFR AFRICAN-AMERICAN > 60; GFR NON-AFRICAN AMERICAN > 60; LIPASE 99 U/L (23-300)
[2018-02-10 06:44] VITALS: BP 129/76; PULSE 69; RESP 17; TEMP 98; O2SAT 98
== END 2018-02-10 06:20 | disposition home or self-care (01) ==
LOC: H.ER 22:58
DX: R19.7 Diarrhea, unspecified (principal); R10.9 Unspecified abdominal pain; I12.9 Hypertensive chronic kidney disease with stage 1 through stage 4 chronic kidney disease, or unspecified chronic kidney disease; Z79.4 Long term (current) use of insulin; Z79.82 Long term (current) use of aspirin; Z95.5 Presence of coronary angioplasty implant and graft
CPT/HCPCS: 80053; 83690; 85025; 99284; J7040

== ENCOUNTER 2018-02-12 20:05 | Emergency (ER) | payer MEDICARE, MEDICAID ==
[2018-02-12 20:05] VITALS: BMI 26.2
--- NOTE | 2018-02-12 21:29 | ED PDOC ---
HPI: Fever Recent Sick Contacts: No Have you had recent travel within the past 21 days to any of the following countries: [place], [place], [place] or [place]?: No Does Patient Have Hx Of Febrile Seizures: No Did The Patient Have A Seizure Today: No Symptoms Associated With Fever: None Additional Comments: 72 year old undomiciled male with history of insulin dependent DM, right foot ulceration here with complaint of fever that began today. He has been following up closely with Hardware Press Operator, Dr. Lyla Baires. Taking Bactrim PO since last week, currently still on PO antibiotics. He was dx with cellulitis of right foot. Evaluated last week by the comic writer, no erythema was noticable that day on his right foot, left foot was not erythematous and cold to touch. Today he has warmth and erythema of left foot. He has subjective fever, chills that began today, no associated nausea or vomiting, diarrhea noted today. He took his insulin today, 28 units, unsure of name of medication. States his Accucheck earlier today was in the 200s. <Melissa Payan - Last Filed: 02/13/18 06:39> Supervising Attending Note - Supervising Attending Note The Documented history was done by the: Physician Chief Inspector The documented physical exam was done by the: Physician Chief Inspector The documented procedures were done by the: Physician Chief Inspector - Attestation: I have personally seen and examined this patient.: Yes I have fully participated in the care of the patient.: Yes I have reviewed all pertinent clinical information, including history, physical exam and plan: Yes <Marcus Mahmood Y - Last Filed: 02/14/18 01:21> Past Medical History - Medical History PMH: Diabetes, Gastritis, HTN, Kidney Stones, Chronic Kidney Disease - Surgical History Surgical History: Cholecystectomy, Coronary Stent, Tonsillectomy - Family History Family History: States: Diabetes <Melissa Payan - Last Filed: 02/13/18 06:39> <Marcus Mahmood - Last Filed: 02/14/18 01:21> Vital Signs: Last Vital Signs Temp 98.7 F 02/13/18 06:11 Pulse 70 02/13/18 06:11 Resp 16 02/13/18 06:11 BP 163/73 H 02/13/18 06:11 Pulse Ox 99 04/23/18 06:39 - Home Medications Home Medications: Ambulatory Orders Medication Instructions Recorded Aspirin [Ecotrin] 81 mg PO DAILY 11/25/17 Atorvastatin [Lipitor] 40 mg PO HS 11/25/17 Esomeprazole Magnesium [Nexium] 40 mg PO DAILY 11/25/17 Glipizide [Glipizide Xl] 10 mg PO BID 11/25/17 Insulin Glargine, Recombina 28 unit SC DAILY 11/25/17 [Lantus] Lisinopril [Zestril] 20 mg PO DAILY 11/25/17 SITagliptin [Januvia] 100 mg PO DAILY 11/25/17 Tamsulosin [Flomax] 0.4 mg PO DAILY 11/25/17 Ondansetron ODT [Zofran ODT] 4 mg PO Q8H PRN #20 odt 01/01/18 Ibuprofen [Motrin] 600 mg PO Q6 PRN #15 tab 01/03/18 Famotidine [Pepcid] 20 mg PO BID #20 tab 02/02/18 Ondansetron ODT [Zofran ODT] 4 mg PO Q8 PRN #10 odt 02/02/18 Cephalexin [Keflex] 500 mg PO QID #28 capsule 02/12/18 - Allergies Allergies/Adverse Reactions: Allergies Allergy/AdvReac Type Severity Reaction Status Date / Time No Known Allergies Allergy Verified 02/08/18 06:47 Review of Systems Constitutional: Positive for: Fever (subjective), Chills. Negative for: Sweats Eyes: Negative for: Vision Change ENT: Negative for: Ear Discharge, Nose Discharge Cardiovascular: Negative for: Chest Pain, Palpitations, Orthopnea Respiratory: Negative for: Cough, Shortness of Breath, SOB with Exertion Gastrointestinal: Negative for: Nausea, Vomiting, Abdominal Pain, Diarrhea, Constipation Genitourinary Male: Negative for: Dysuria, Frequency Neurological: Negative for: Confusion, Altered Mental Status <Melissa Payan - Last Filed: 02/13/18 06:39> Physical Exam - Reviewed Vital Signs Reviewed: Yes - Physical Exam Appears: Positive for: Non-toxic, No Acute Distress Head Exam: Positive for: ATRAUMATIC, NORMAL INSPECTION, NORMOCEPHALIC Skin: Positive for: Warm (warmth/ mild erythema of bilateral feet) Eye Exam: Positive for: Normal appearance, EOMI ENT: Positive for: Normal ENT Inspection. Negative for: Nasal Congestion Neck: Positive for: Painless ROM Cardiovascular/Chest: Positive for: Regular Rate, Rhythm, Chest Non Tender. Negative for: Murmur, Bradycardia, Tachycardia Respiratory: Positive for: Normal Breath Sounds. Negative for: Accessory Muscle Use, Crackles, Rales, Rhonchi, Stridor, Wheezing, Respiratory Distress Gastrointestinal/Abdominal: Positive for: Soft. Negative for: Tenderness Extremity: Positive for: Pedal Edema (mild). Negative for: Tenderness Neurologic/Psych: Positive for: Alert, senior internet sales consultant II-XII, Mood/Affect (appropriate) <Melissa Payan - Last Filed: 02/13/18 06:39> - Laboratory Results Result Diagrams: 02/12/18 21:22 02/12/18 21:22 - ECG O2 Sat by Pulse Oximetry: 99 <Melissa Payan - Last Filed: 02/13/18 06:39> - Laboratory Results Result Diagrams: 02/12/18 21:22 02/12/18 21:22 <Marcus Mahmood Y - Last Filed: 02/14/18 01:21> - Progress ED Course And Treament: 72 year old male with IDDM with subjective fever and chills, currently on PO abx for cellulitis of his right foot. Patient has been following up with Hardware Press Operator, currently on Bactrim. Began having fever and chills today. -CBC -CMP -ESR -Lactic Acid -UA -Urine Cx -Unasyn and Vanco IV -Podiatry consult Case d/w Dr. Mahmood Patient seen and evaluated by Podiatry. He is afebrile. Labs reviewed, no leukocytosis, ESR 11. Results discussed with pt. He has follow up appointment with his library paraprofessional on 02/13/18. Given his persistent symptoms, will start Keflex. (Melissa Payan) Disposition - Disposition Disposition: Routine/Home Disposition Time: 00:21 <Melissa Payan - Last Filed: 02/13/18 06:39> <Marcus Mahmood Y - Last Filed: 02/14/18 01:21> - Clinical Impression Clinical Impression: Foot pain - Disposition Condition: IMPROVED Additional Instructions: follow up with podiatry as previously directed. add on keflex return to the ED with any worsening or concerning symptoms Prescriptions: Cephalexin [Keflex] 500 mg PO QID #28 capsule Instructions: Diabetic Foot Ulcer (DC) Forms: [employer] (Kazakh)
[2018-02-12 21:51] LABS: BASO # 0.1 K/uL (0.0-0.2); BASO % 1.1 % (0.0-2.0); EOS # 0.3 K/uL (0.0-0.7); EOS % 4.6 % (0.0-4.0); HEMOGLOBIN 12.4 g/dL (12.0-18.0); LYMPH # 1.8 K/uL (1.0-4.3); LYMPH % 25.2 % (20.0-40.0); MEAN CELL VOLUME 71.8 fl (80.0-94.0); MEAN PLATELET VOLUME 9.3 fl (7.2-11.7); MONO # 0.8 K/uL (0.0-0.8); MONO % 10.8 % (0.0-10.0); NEUT # 4.2 K/uL (1.8-7.0); NEUT % 58.3 % (50.0-75.0); NRBC % 0.1 % (0.0-0.0); RBC 5.41 Mil/uL (4.40-5.90); RED CELL DISTRIBUTION WIDTH 15.6 % (11.5-14.5); WHITE BLOOD COUNT 7.2 K/uL (4.8-10.8)
[2018-02-12 22:01] LABS: PARTIAL THROMBOPLASTIN TIME 31.9 Seconds (25.6-37.1); PROTHROMBIN TIME 11.1 Seconds (9.8-13.1)
[2018-02-12 22:26] LABS: ALB/GLOB RATIO 1.1 (1.0-2.1); ALBUMIN 3.6 g/dL (3.5-5.0); ALT/SGPT 30 U/L (21-72); AST/SGOT 18 U/L (17-59); BLOOD UREA NITROGEN 27 mg/dl (9-20); CALCIUM 9.1 mg/dL (8.4-10.2); GFR AFRICAN-AMERICAN > 60; GFR NON-AFRICAN AMERICAN 59
--- NOTE | 2018-02-12 22:50 | CP.PCM.CON ---
History of Present Illness - History of Present Illness History of Present Illness: 72 year old male seen in the ED complaining of ulcerations to his right first and second digit as well as chills. Patient was last seen by me in ED four days ago. He states that he has seen his regular resourcing consultant since that time and has an appointment to see her again tomorrow. He denies any drainage, malodor or other clinical signs of infection from his ulcers other than the erythema. He states that he has a follow up appointment with her tomorrow. He denies any further pedal complaints at this time. He denies any recent N/V/F/C/CP/SOB/D/ posterior calf pain when squeezed. He states that he has continued to take his Bactrim Review of Systems - Review of Systems Review of Systems: ROS as per HPI Past Patient History - Infectious Disease Hx of Infectious Diseases: None - Past Medical History & Family History Past Medical History?: Yes - Past Social History Smoking Status: Heavy Smoker > 10 Cigarettes Daily - CARDIAC Hx Hypertension: Yes - PULMONARY Hx Respiratory Disorders: No - NEUROLOGICAL Hx Neurological Disorder: No - HEENT Hx HEENT Problems: Yes Hx Cataracts: Yes - RENAL Hx Chronic Kidney Disease: Yes Hx Kidney Stones: Yes - ENDOCRINE/METABOLIC Hx Endocrine Disorders: Yes Hx Diabetes Mellitus Type 2: Yes - HEMATOLOGICAL/ONCOLOGICAL Hx Blood Disorders: No - INTEGUMENTARY Hx Dermatological Problems: No - MUSCULOSKELETAL/RHEUMATOLOGICAL Hx Musculoskeletal Disorders: No Hx Falls: No - GASTROINTESTINAL Hx Gastritis: Yes - GENITOURINARY/GYNECOLOGICAL Hx Genitourinary Disorders: No - PSYCHIATRIC Hx Psychophysiologic Disorder: No Hx Substance Use: No - SURGICAL HISTORY Hx Cholecystectomy: Yes Hx Coronary Stent: Yes Hx Tonsillectomy: Yes - ANESTHESIA Hx Anesthesia: Yes Hx Anesthesia Reactions: No Hx Malignant Hyperthermia: No Meds Allergies/Adverse Reactions: Allergies Allergy/AdvReac Type Severity Reaction Status Date / Time No Known Allergies Allergy Verified 02/08/18 06:47 - Medications Medications: Current Medications Ampicillin Sodium/Sulbactam (Sodium 3 gm/ Sodium Chloride) 100 mls @ 100 mls/ hr IVPB Q6 REYNA PRN Reason: Protocol Last Admin: 02/12/18 22:03 Dose: 100 mls/hr Vancomycin HCl 1 gm/ Sodium (Chloride) 250 mls @ 166.667 mls/hr IVPB ONCE ONE PRN Reason: Protocol Stop: 02/12/18 22:59 Physical Exam - Constitutional Appears: Well, Non-toxic, No Acute Distress - Extremities Exam Additional comments: LE focused exam: Vasc: DP/PT pulses fully palpable 2/4 b/l. Skin temperature warm to warm from proximal to distal. CFT < 3 seconds to all digits b/l. Mild edema noted surrounding ulceration sites of first and second digit Neuro: Epicritic and protective sensation grossly diminished b/l Derm: Superficial ulceration noted to distal, medial second digit with beefy, red base noted. Ulceration measuring roughly 0.5 cm x 0.5 cm x 0 3 cm noted to medial hallux with surrounding hyperkeratotic tissue. For both ulcers no drainage, no probe to bone, no malodor, no tracking, tunneling or undermining, no other clinical signs of infection. Both ulcerations appear to be improving. Increased redness to left foot/leg that dissipates when leg is elevated. Most likely secondary to venous stasis changes MSK: No POP to either ulceration site - Neurological Exam Neurological exam: Alert, Oriented x3 - Psychiatric Exam Psychiatric exam: Normal Affect, Normal Mood Results - Vital Signs Recent Vital Signs: Last Vital Signs Temp 97.5 F L 02/12/18 20:12 Pulse 75 02/12/18 20:12 Resp 18 02/12/18 20:12 BP 156/60 H 02/12/18 20:12 Pulse Ox 99 02/12/18 21:35 - Labs Result Diagrams: 02/12/18 21:22 02/12/18 21:22 Labs: Laboratory Results - last 24 hr 02/12/18 02/12/18 02/12/18 21:22 21:22 21:22 WBC 7.2 RBC 5.41 Hgb 12.4 Hct 38.9 MCV 71.8 L MCH 23.0 L MCHC 32.0 L RDW 15.6 H Plt Count 190 MPV 9.3 Neut % (Auto) 58.3 Lymph % (Auto) 25.2 [place] % (Auto) 10.8 H Eos % (Auto) 4.6 H Baso % (Auto) 1.1 Neut # (Auto) 4.2 Lymph # (Auto) 1.8 [place] # (Auto) 0.8 Eos # (Auto) 0.3 Baso # (Auto) 0.1 PT 11.1 INR 1.0 APTT 31.9 Sodium 143 Potassium 5.1 H Chloride 103 Carbon Dioxide 26 Anion Gap 19 BUN 27 H Creatinine 1.2 Est GFR ( Amer) > 60 Est GFR (Non-Af Amer) 59 Random Glucose 297 H Lactic Acid Calcium 9.1 Total Bilirubin 0.3 AST 18 ALT 30 Alkaline Phosphatase 107 Total Protein 6.8 Albumin 3.6 Globulin 3.3 Albumin/Globulin Ratio 1.1 02/12/18 21:22 WBC RBC Hgb Hct MCV MCH MCHC RDW Plt Count MPV Neut % (Auto) Lymph % (Auto) [place] % (Auto) Eos % (Auto) Baso % (Auto) Neut # (Auto) Lymph # (Auto) [place] # (Auto) Eos # (Auto) Baso # (Auto) PT INR APTT Sodium Potassium Chloride Carbon Dioxide Anion Gap BUN Creatinine Est GFR ( Amer) Est GFR (Non-Af Amer) Random Glucose Lactic Acid 2.3 H Calcium Total Bilirubin AST ALT Alkaline Phosphatase Total Protein Albumin Globulin Albumin/Globulin Ratio Assessment & Plan - Assessment and Plan (Free Text) Assessment: 72 year old male seen in ED for mildly infected ulcerations to first and second digit of left foot, improving and venous stasis changes to legs Plan: Patient seen and evaluated in ED Plan discussed with attending, Dr. Zhang Charts, labs, vitals reviewed Afebrile, absent leukocytosis Patient instructed to continue with his PO abx Pt given dose of Unasyn and Vanco in ED Patient instructed to follow up with his regularly scheduled resourcing consultant tomorrow Patient's foot dressed with Bacitracin, DSD Patient instructed to return to ED if he begins to notice any local or constitutional signs of infection - Date & Time Date: 02/12/18 Time: 22:56
[2018-02-13 06:12] VITALS: BP 163/73; PULSE 70; RESP 16; TEMP 98.7
[2018-02-13 06:39] VITALS: O2SAT 99
== END 2018-02-13 06:30 | disposition home or self-care (01) ==
LOC: H.ER 20:05
DX: L97.529 Non-pressure chronic ulcer of other part of left foot with unspecified severity (principal); Z79.4 Long term (current) use of insulin; E11.22 Type 2 diabetes mellitus with diabetic chronic kidney disease; E11.621 Type 2 diabetes mellitus with foot ulcer; F17.210 Nicotine dependence, cigarettes, uncomplicated
CPT/HCPCS: 80053; 83605; 85025; 85610; 85651; 85730; 87040; 96365; 99283; J0295

== ENCOUNTER 2018-02-17 00:27 | Emergency (ER) | payer MEDICARE, MEDICAID ==
[2018-02-17 00:28] VITALS: BMI 26.2
[2018-02-17 01:09] VITALS: O2SAT 100
--- NOTE | 2018-02-17 03:29 | ED PDOC ---
Lower Extremity Pain/Injury Time Seen by Provider: 02/17/18 03:11 Chief Complaint (Nursing): Abnormal Skin Integrity Chief Complaint (Provider): left lower extremity redness History Per: Patient History/Exam Limitations: no limitations Onset/Duration Of Symptoms: Days (1 week) Additional Complaint(s): 72 y/o male presents with redness/swelling to left lower extremity x 1 week. Patient states he was evaluated by his collection systems worker yesterday and had his antibiotic switched from Keflex to Bactrim DS and was advised to go to ED if redness spread outside of marked area. Denies fever, nausea/vomiting, calf pain , numbness/weakness lower extremities. Past Medical History Reviewed: Historical Data, Nursing Documentation, Vital Signs Vital Signs: Last Vital Signs Temp 98.2 F 02/17/18 00:45 Pulse 79 02/17/18 00:45 Resp 17 02/17/18 00:45 BP 163/86 H 02/17/18 00:45 Pulse Ox 100 02/17/18 00:45 - Medical History PMH: Diabetes, Gastritis, HTN, Kidney Stones, Chronic Kidney Disease - Surgical History Surgical History: Cholecystectomy, Coronary Stent, Tonsillectomy - Family History Family History: States: Diabetes - Home Medications Home Medications: Ambulatory Orders Medication Instructions Recorded Aspirin [Ecotrin] 81 mg PO DAILY 11/25/17 Atorvastatin [Lipitor] 40 mg PO HS 11/25/17 Esomeprazole Magnesium [Nexium] 40 mg PO DAILY 11/25/17 Glipizide [Glipizide Xl] 10 mg PO BID 11/25/17 Insulin Glargine, Recombina 28 unit SC DAILY 11/25/17 [Lantus] Lisinopril [Zestril] 20 mg PO DAILY 11/25/17 SITagliptin [Januvia] 100 mg PO DAILY 11/25/17 Tamsulosin [Flomax] 0.4 mg PO DAILY 11/25/17 Ondansetron ODT [Zofran ODT] 4 mg PO Q8H PRN #20 odt 01/01/18 Ibuprofen [Motrin] 600 mg PO Q6 PRN #15 tab 01/03/18 Famotidine [Pepcid] 20 mg PO BID #20 tab 02/02/18 Ondansetron ODT [Zofran ODT] 4 mg PO Q8 PRN #10 odt 02/02/18 Cephalexin [Keflex] 500 mg PO QID #28 capsule 02/12/18 - Allergies Allergies/Adverse Reactions: Allergies Allergy/AdvReac Type Severity Reaction Status Date / Time No Known Allergies Allergy Verified 02/08/18 06:47 Review of Systems ROS Statement: Except As Marked, All Systems Reviewed And Found Negative Musculoskeletal: Positive for: Leg Pain, Foot Pain Physical Exam - Reviewed Nursing Documentation Reviewed: Yes Vital Signs Reviewed: Yes - Physical Exam Appears: Positive for: Well, Non-toxic, No Acute Distress Head Exam: Positive for: ATRAUMATIC, NORMAL INSPECTION, NORMOCEPHALIC Skin: Positive for: Normal Color Cardiovascular/Chest: Positive for: Regular Rate, Rhythm Respiratory: Positive for: Normal Breath Sounds Gastrointestinal/Abdominal: Positive for: Normal Exam Extremity: Positive for: Normal ROM, Other (erythema to dorsal left foot extending up left lower extremity. Warm to touch. No lesions, abscess noted. ). Negative for: Calf Tenderness Neurologic/Psych: Positive for: Alert, Oriented - Laboratory Results Result Diagrams: 02/17/18 06:21 02/17/18 06:21 - ECG O2 Sat by Pulse Oximetry: 100 - Progress ED Course And Treament: labs, podiatry eval Disposition - Clinical Impression Clinical Impression: Cellulitis - Disposition Referrals: Rolf Saez MD [Primary Care Provider] - Disposition: Transfer of Care Disposition Time: 06:00 Condition: STABLE Additional Instructions: Continue antibiotics as prescribed Followup with your collection systems worker as directed Instructions: Cellulitis (Skin Infection), Adult (DC) Forms: [employer] (Iraqi) Patient Signed Over To: Tee Higuera Handoff Comments: pending podiatry consult
[2018-02-17 06:31] LABS: BASO # 0.1 K/uL (0.0-0.2); BASO % 1.1 % (0.0-2.0); EOS # 0.4 K/uL (0.0-0.7); EOS % 6.3 % (0.0-4.0); HEMOGLOBIN 12.8 g/dL (12.0-18.0); LYMPH % 33.2 % (20.0-40.0); MEAN CELL VOLUME 71.3 fl (80.0-94.0); MEAN CORPUSCULAR HEMOGLOBIN 22.7 pg (27.0-31.0); MEAN CORPUSCULAR HGB CONC 31.8 g/dL (33.0-37.0); MEAN PLATELET VOLUME 8.9 fl (7.2-11.7); MONO # 0.6 K/uL (0.0-0.8); MONO % 10.2 % (0.0-10.0); NEUT % 49.2 % (50.0-75.0); NRBC % 0.1 % (0.0-0.0); RBC 5.65 Mil/uL (4.40-5.90); RED CELL DISTRIBUTION WIDTH 15.4 % (11.5-14.5); WHITE BLOOD COUNT 6.1 K/uL (4.8-10.8)
--- NOTE | 2018-02-17 07:19 | ED PDOC ---
- Laboratory Results Result Diagrams: 02/17/18 06:21 02/17/18 06:21 - ECG O2 Sat by Pulse Oximetry: 100 Medical Decision Making Medical Decision Makinam pending podiatry eval Time: 832 Doctor saw patient and patient is clear for discharge. Clinical Impression: Celluitis Upon provider evaluation patient is medically stable, and requires no further treatment in the ED at this time. Patient will be discharged. Counseling was provided and all questions were answered regarding diagnosis and need for follow up with PMD. There is agreement to discharge plan. Return if symptoms persist or worsen. Scribe Attestation: Documented by Kristy Telles, acting as a scribe for Jasson Oseguera III, DO Provider Scribe Attestation: All medical record entries made by the Scribe were at my direction and personally dictated by me. I have reviewed the chart and agree that the record accurately reflects my personal performance of the history, physical exam, medical decision making, and the department course for this patient. I have also personally directed, reviewed, and agree with the discharge instructions and disposition. Disposition - Clinical Impression Clinical Impression: Cellulitis - POA Present On Arrival: None - Disposition Referrals: Rolf Saez MD [Primary Care Provider] - Disposition: Routine/Home Disposition Time: 08:33 Condition: STABLE Additional Instructions: Continue antibiotics as prescribed Followup with your director of oncology as directed Instructions: Cellulitis (Skin Infection), Adult (DC) Forms: [employer] (Macedonian)
[2018-02-17 07:21] LABS: ALB/GLOB RATIO 1.1 (1.0-2.1); ALBUMIN 3.6 g/dL (3.5-5.0); ALT/SGPT 31 U/L (21-72); AST/SGOT 17 U/L (17-59); BLOOD UREA NITROGEN 27 mg/dl (9-20); CALCIUM 9.2 mg/dL (8.4-10.2); GFR AFRICAN-AMERICAN > 60; GFR NON-AFRICAN AMERICAN > 60
[2018-02-17 08:50] VITALS: BP 143/59; PULSE 81; RESP 18; TEMP 98.6
--- NOTE | 2018-02-17 08:50 | CP.PCM.CON ---
History of Present Illness - History of Present Illness History of Present Illness: 72M familiar to our service seen in the ED complaining of redness to his left leg. Patient has been seen in the ED twice in the last two weeks for ulcerations to his right foot and increasing b/l erythema. The patient has presented to the ED each time because he sees a private milling operator, Dr. Baires, who tells him to come to the ED if he notices the redness of his legs getting worse. He last saw her yesterday and has another appointment with her tomorrow. Patient has been afebrile and had no leukocytosis on each visit. He also states that he has had no pain to either foot and no constitutional symptoms of infection. This visit is no different. Patient is AAO x 3 and NAD at time of visit. Denies any further pedal complaints at this time. States that he has continued to take the Bactrim that Dr. Baires prescribed to him and has no new signs of infection. He also denies any new LE swelling or calf pain. Denies any recent N/V/F/C/CP/SOB/D/posterior calf pain when squeezed. Review of Systems - Review of Systems Review of Systems: ROS as per HPI Past Patient History - Infectious Disease Hx of Infectious Diseases: None - Past Medical History & Family History Past Medical History?: Yes - Past Social History Smoking Status: Former Smoker - CARDIAC Hx Hypertension: Yes - PULMONARY Hx Respiratory Disorders: No - NEUROLOGICAL Hx Neurological Disorder: No - HEENT Hx HEENT Problems: Yes Hx Cataracts: Yes - RENAL Hx Chronic Kidney Disease: Yes Hx Kidney Stones: Yes - ENDOCRINE/METABOLIC Hx Endocrine Disorders: Yes Hx Diabetes Mellitus Type 2: Yes - HEMATOLOGICAL/ONCOLOGICAL Hx Blood Disorders: No - INTEGUMENTARY Hx Dermatological Problems: No - MUSCULOSKELETAL/RHEUMATOLOGICAL Hx Musculoskeletal Disorders: No Hx Falls: No - GASTROINTESTINAL Hx Gastritis: Yes - GENITOURINARY/GYNECOLOGICAL Hx Genitourinary Disorders: No - PSYCHIATRIC Hx Psychophysiologic Disorder: No Hx Substance Use: No - SURGICAL HISTORY Hx Cholecystectomy: Yes Hx Coronary Stent: Yes Hx Tonsillectomy: Yes - ANESTHESIA Hx Anesthesia: Yes Hx Anesthesia Reactions: No Hx Malignant Hyperthermia: No Meds Allergies/Adverse Reactions: Allergies Allergy/AdvReac Type Severity Reaction Status Date / Time No Known Allergies Allergy Verified 02/08/18 06:47 Physical Exam - Constitutional Appears: Well, Non-toxic, No Acute Distress - Extremities Exam Additional comments: LE focused exam: Vasc: DP pulses palpable 1/4 b/l, PT pulses palpable 2/4 b/l. Skin temperature warm to warm from proximal to distal. CFT < 3 seconds to all digits b/l. Edema that was noted to periwound area of right foot ulcerations is no longer present at this time. No unilateral edema noted to either LE Neuro: Epicritic and protective sensation grossly diminished b/l Derm: Previous superficial ulceration noted to distal, medial second digit with beefy, red base noted to be almost fully healed at this time. Ulceration measuring roughly 0.5 cm x 0.5 cm x 0 3 cm noted to medial hallux with surrounding hyperkeratotic tissue, stable and improving. For both ulcers no drainage, no probe to bone, no malodor, no tracking, tunneling or undermining, no other clinical signs of infection. Increased redness to left foot/leg that dissipates slightly when leg is elevated (venous stasis vs. cellulitic changes) MSK: No POP to either ulceration site. No pain to posterior calf b/l. - Neurological Exam Neurological exam: Alert, Oriented x3 - Psychiatric Exam Psychiatric exam: Normal Affect, Normal Mood Results - Vital Signs Recent Vital Signs: Last Vital Signs Temp 98.2 F 02/17/18 00:45 Pulse 79 02/17/18 00:45 Resp 17 02/17/18 00:45 BP 163/86 H 02/17/18 00:45 Pulse Ox 100 02/17/18 08:36 - Labs Result Diagrams: 02/17/18 06:21 02/17/18 06:21 Labs: Laboratory Results - last 24 hr 02/17/18 02/17/18 02/17/18 05:56 06:21 06:21 WBC 6.1 RBC 5.65 Hgb 12.8 Hct 40.3 MCV 71.3 L MCH 22.7 L MCHC 31.8 L RDW 15.4 H Plt Count 199 MPV 8.9 Neut % (Auto) 49.2 L Lymph % (Auto) 33.2 [place] % (Auto) 10.2 H Eos % (Auto) 6.3 H Baso % (Auto) 1.1 Neut # (Auto) 3.0 Lymph # (Auto) 2.0 [place] # (Auto) 0.6 Eos # (Auto) 0.4 Baso # (Auto) 0.1 Sodium 144 Potassium 4.4 Chloride 103 Carbon Dioxide 23 Anion Gap 22 H BUN 27 H Creatinine 1.0 Est GFR ( Amer) > 60 Est GFR (Non-Af Amer) > 60 POC Glucose (mg/dL) 125 H Random Glucose 112 H Lactic Acid Calcium 9.2 Total Bilirubin 0.4 AST 17 ALT 31 Alkaline Phosphatase 75 Total Protein 6.7 Albumin 3.6 Globulin 3.1 Albumin/Globulin Ratio 1.1 02/17/18 06:21 WBC RBC Hgb Hct MCV MCH MCHC RDW Plt Count MPV Neut % (Auto) Lymph % (Auto) [place] % (Auto) Eos % (Auto) Baso % (Auto) Neut # (Auto) Lymph # (Auto) [place] # (Auto) Eos # (Auto) Baso # (Auto) Sodium Potassium Chloride Carbon Dioxide Anion Gap BUN Creatinine Est GFR ( Amer) Est GFR (Non-Af Amer) POC Glucose (mg/dL) Random Glucose Lactic Acid 1.3 Calcium Total Bilirubin AST ALT Alkaline Phosphatase Total Protein Albumin Globulin Albumin/Globulin Ratio Assessment & Plan - Assessment and Plan (Free Text) Assessment: 72M with healing ulcerations to right foot seen for increasing erythema to b/l LE secondary to venous stasis changes vs. cellulitic changes Plan: Patient seen and evaluated in ED Plan discussed with attending Dr. Zhang Charts, labs, vitals reviewed Afebrile, absent leukocytosis Patient legs lathered with lotion and ulcerations of right foot dressed with DSD Patient advised to follow up with his regular milling operator at his regularly scheduled appointment next week Patient to continue with his abx that were prescribed by his milling operator, Dr. Baires - Date & Time Date: 02/17/18 Time: 08:58
== END 2018-02-17 09:17 | disposition home or self-care (01) ==
LOC: H.ER 00:27
DX: L03.116 Cellulitis of left lower limb (principal); L97.519 Non-pressure chronic ulcer of other part of right foot with unspecified severity; E11.22 Type 2 diabetes mellitus with diabetic chronic kidney disease; E11.621 Type 2 diabetes mellitus with foot ulcer; Z79.4 Long term (current) use of insulin; Z79.82 Long term (current) use of aspirin; Z95.5 Presence of coronary angioplasty implant and graft

== ENCOUNTER 2018-03-02 04:21 | Emergency (ER) | payer MEDICARE, MEDICAID ==
[2018-03-02 04:21] VITALS: BMI 26.2
[2018-03-02 04:33] VITALS: TEMP 97.5
--- NOTE | 2018-03-02 05:47 | ED PDOC ---
Upper Extremity Pain/Injury Time Seen by Provider: 03/02/18 04:54 Chief Complaint (Nursing): Upper Extremity Problem/Injury Chief Complaint (Provider): Upper Extremity Injury History Per: Patient History/Exam Limitations: no limitations Onset/Duration Of Symptoms: Other (over 1 month) Current Symptoms Are (Timing): Still Present Additional Complaint(s): 72 year old male presents to ED with complaints of right shoulder pain for over 1 month, has a past medical history of HTN and diabetes mellitus, and is well known to this ED. Patient states that he sustained injury to his shoulder when he fell on ice and notes that he had subsequent XRs and physical therapy done. Confirms he is not in therapy anymore. 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: Unknown Past Medical History Reviewed: Historical Data, Nursing Documentation, Vital Signs Vital Signs: Last Vital Signs Temp 97.5 F L 03/02/18 04:30 Pulse 73 03/02/18 04:30 Resp 17 03/02/18 04:30 BP 150/75 03/02/18 04:30 Pulse Ox 99 03/02/18 04:30 - Medical History PMH: Diabetes, Gastritis, HTN, Kidney Stones, Chronic Kidney Disease - Surgical History Surgical History: Cholecystectomy, Coronary Stent, Tonsillectomy - Family History Family History: States: Diabetes Denies: No Known Family Hx - Home Medications Home Medications: Ambulatory Orders Medication Instructions Recorded Aspirin [Ecotrin] 81 mg PO DAILY 11/25/17 Atorvastatin [Lipitor] 40 mg PO HS 11/25/17 Esomeprazole Magnesium [Nexium] 40 mg PO DAILY 11/25/17 Glipizide [Glipizide Xl] 10 mg PO BID 11/25/17 Insulin Glargine, Recombina 28 unit SC DAILY 11/25/17 [Lantus] Lisinopril [Zestril] 20 mg PO DAILY 11/25/17 SITagliptin [Januvia] 100 mg PO DAILY 11/25/17 Tamsulosin [Flomax] 0.4 mg PO DAILY 11/25/17 Ondansetron ODT [Zofran ODT] 4 mg PO Q8H PRN #20 odt 01/01/18 Ibuprofen [Motrin] 600 mg PO Q6 PRN #15 tab 01/03/18 Famotidine [Pepcid] 20 mg PO BID #20 tab 02/02/18 Ondansetron ODT [Zofran ODT] 4 mg PO Q8 PRN #10 odt 02/02/18 Cephalexin [Keflex] 500 mg PO QID #28 capsule 02/12/18 Ibuprofen [Motrin Tab] 600 mg PO Q6 #30 tab 03/02/18 - Allergies Allergies/Adverse Reactions: Allergies Allergy/AdvReac Type Severity Reaction Status Date / Time No Known Allergies Allergy Verified 02/08/18 06:47 Review of Systems ROS Statement: Except As Marked, All Systems Reviewed And Found Negative Musculoskeletal: Positive for: Shoulder Pain (right shoulder) Physical Exam - Reviewed Nursing Documentation Reviewed: Yes Vital Signs Reviewed: Yes - Physical Exam Appears: Positive for: Non-toxic, No Acute Distress Extremity: Positive for: Normal ROM (near full ROM to right shoulder). Negative for: Deformity, Other ((-) erythema or step-off. Patient is distally neurovascularly intact) Neurologic/Psych: Positive for: Alert, Oriented. Negative for: Motor/Sensory Deficits - ECG O2 Sat by Pulse Oximetry: 99 (RA) Pulse Ox Interpretation: Normal Medical Decision Making Medical Decision Makin Initial impression: chronic shoulder pain Initial plan: * Ibuprofen 600mg PO * Re-eval 0629 Upon re-evaluation patient notes improvement in symptoms and is stable for discharge home. Return precautions given. Scribe Attestation: Documented by Fern Soto acting as a scribe for Tee Higuera MD. Scribe Attestation: All medical record entries made by the Scribe were at my direction and personally dictated by me. I have reviewed the chart and agree that the record accurately reflects my personal performance of the history, physical exam, medical decision making, and the department course for this patient. I have also personally directed, reviewed, and agree with the discharge instructions and disposition. Disposition - Clinical Impression Clinical Impression: Shoulder pain - Disposition Referrals: Jacinda Mcnulty MD [Staff Provider] - Disposition: Routine/Home Disposition Time: 06:30 Condition: STABLE Prescriptions: Ibuprofen [Motrin Tab] 600 mg PO Q6 #30 tab Instructions: Shoulder Pain (DC) Forms: [employer] (Upper Sorbian)
[2018-03-02 06:57] VITALS: BP 137/63; PULSE 71; RESP 18
[2018-03-02 07:04] VITALS: O2SAT 99
== END 2018-03-02 06:57 | disposition home or self-care (01) ==
LOC: H.ER 04:21
DX: M25.511 Pain in right shoulder (principal); I12.9 Hypertensive chronic kidney disease with stage 1 through stage 4 chronic kidney disease, or unspecified chronic kidney disease; Z79.4 Long term (current) use of insulin; Z79.82 Long term (current) use of aspirin; Z95.5 Presence of coronary angioplasty implant and graft

== ENCOUNTER 2018-03-11 22:48 | Emergency (ER) | payer MEDICARE, MEDICAID ==
[2018-03-11 22:49] VITALS: BMI 26.2
[2018-03-11 22:53] VITALS: RESP 16
--- NOTE | 2018-03-11 23:45 | ED PDOC ---
Upper Extremity Pain/Injury Time Seen by Provider: 03/11/18 23:02 Chief Complaint (Nursing): High Blood Sugar History Per: Patient History/Exam Limitations: no limitations Onset/Duration Of Symptoms: Days (x 2) Current Symptoms Are (Timing): Still Present Additional Complaint(s): 72-year-old male, with a past medical history of hypertension, diabetes and homelessness, presents to ED complaining of right elbow pain for 2 days s/p fall. 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 States wound was cleaned and bandage was applied. Since then, patient is concern since he has not seen his wound. Blood sugar is 309 today. Denies fever, purulent discharge, chills, body aches, difficulty moving his elbow, weakness, numbness. Last tetanus shot was 7 months ago from previous fall. States he typically gets his medications such as administered insulin shots and regular oral medications on a daily basis at his doctor's office. Patient reports attends [employer] on Tuesday morning and will not be able to see the doctor till Tuesday. PMD: Rolf Saez Past Medical History Reviewed: Historical Data, Nursing Documentation, Vital Signs Vital Signs: Last Vital Signs Temp 97.4 F L 03/11/18 22:50 Pulse 84 03/11/18 22:50 Resp 16 03/11/18 22:50 BP 149/71 03/11/18 22:50 Pulse Ox 97 03/11/18 22:50 - Medical History PMH: Diabetes, Gastritis, HTN, Kidney Stones, Chronic Kidney Disease - Surgical History Surgical History: Cholecystectomy, Coronary Stent, Tonsillectomy - Family History Family History: States: Diabetes - Home Medications Home Medications: Ambulatory Orders Medication Instructions Recorded Aspirin [Ecotrin] 81 mg PO DAILY 11/25/17 Atorvastatin [Lipitor] 40 mg PO HS 11/25/17 Esomeprazole Magnesium [Nexium] 40 mg PO DAILY 11/25/17 Glipizide [Glipizide Xl] 10 mg PO BID 11/25/17 Insulin Glargine, Recombina 28 unit SC DAILY 11/25/17 [Lantus] Lisinopril [Zestril] 20 mg PO DAILY 11/25/17 SITagliptin [Januvia] 100 mg PO DAILY 11/25/17 Tamsulosin [Flomax] 0.4 mg PO DAILY 11/25/17 Ondansetron ODT [Zofran ODT] 4 mg PO Q8H PRN #20 odt 01/01/18 Ibuprofen [Motrin] 600 mg PO Q6 PRN #15 tab 01/03/18 Famotidine [Pepcid] 20 mg PO BID #20 tab 02/02/18 Ondansetron ODT [Zofran ODT] 4 mg PO Q8 PRN #10 odt 02/02/18 Cephalexin [Keflex] 500 mg PO QID #28 capsule 02/12/18 Ibuprofen [Motrin Tab] 600 mg PO Q6 #30 tab 03/02/18 Mupirocin 2% Ointment [Bactroban 1 appl TP BID #1 tube 03/12/18 Ointment] - Allergies Allergies/Adverse Reactions: Allergies Allergy/AdvReac Type Severity Reaction Status Date / Time No Known Allergies Allergy Verified 03/11/18 22:50 Review of Systems ROS Statement: Except As Marked, All Systems Reviewed And Found Negative Constitutional: Positive for: Other (body aches). Negative for: Fever, Chills Musculoskeletal: Positive for: Other (right elbow pain) Neurological: Negative for: Weakness, Numbness Physical Exam - Reviewed Nursing Documentation Reviewed: Yes Vital Signs Reviewed: Yes - Physical Exam Appears: Positive for: Non-toxic, No Acute Distress Skin: Positive for: Warm, Dry Extremity: Positive for: Normal ROM (Full ROM), Other ((+) right elbow healed abrasion at ?? with mild erythema on superior limb of the wound, (+) Patient is distally neuromuscular intact (-) fluctuants, (-) tenderness, (-) warmth) Lymphatic: Negative for: Adenopathy Neurologic/Psych: Positive for: Alert. Negative for: Motor/Sensory Deficits - ECG O2 Sat by Pulse Oximetry: 97 (RA) Pulse Ox Interpretation: Normal Medical Decision Making Medical Decision Making: Time: 23:22 Impression(s): Elbow Abrasion, hypoglycemic Plan: - Bactroban Ointment - Motrin Tab - Glucose, Blood POC Scribe Attestation: Documented by Keegan Lester, acting as a scribe for Joana Gold MD. Provider Scribe Attestation: All medical record entries made by the Scribe were at my direction and personally dictated by me. I have reviewed the chart and agree that the record accurately reflects my personal performance of the history, physical exam, medical decision making, and the department course for this patient. I have also personally directed, reviewed, and agree with the discharge instructions and disposition. Disposition - Clinical Impression Clinical Impression: Elbow abrasion, Hyperglycemia - Disposition Referrals: Rolf Saez MD [Staff Provider] - (FOLLOW UP WITH DR SAEZ TUESDAY) Disposition: Routine/Home Disposition Time: 00:00 Condition: GOOD Additional Instructions: CONTINUE TO APPLY BACTROBAN TWICE A DAY UNTIL WOUND IS FULLY HEALED Prescriptions: Mupirocin 2% Ointment [Bactroban Ointment] 1 appl TP BID #1 tube Instructions: Hyperglycemia, Adult, Skin Abrasions Forms: [facility] ([place])
[2018-03-12 00:35] VITALS: BP 138/77; PULSE 73; TEMP 98.5
[2018-03-13 14:27] VITALS: O2SAT 97
== END 2018-03-12 00:42 | disposition home or self-care (01) ==
LOC: H.ER 22:48
DX: S50.311A Abrasion of right elbow, initial encounter (principal); W19.XXXA Unspecified fall, initial encounter; Y92.89 Other specified places as the place of occurrence of the external cause; E11.65 Type 2 diabetes mellitus with hyperglycemia; I12.9 Hypertensive chronic kidney disease with stage 1 through stage 4 chronic kidney disease, or unspecified chronic kidney disease; Z79.4 Long term (current) use of insulin; Z79.82 Long term (current) use of aspirin; Z95.5 Presence of coronary angioplasty implant and graft

== ENCOUNTER 2018-05-23 15:56 | Observation (INO) | payer MEDICARE, MEDICAID ==
[2018-05-23 15:57] VITALS: BMI 26.2
[2018-05-23] MEDS ORDERED: Sodium Chloride 0.9% 1,000 ML IV STA (16:15)
--- NOTE | 2018-05-23 16:18 | ED PDOC ---
HPI: Chest Pain Time Seen by Provider: 05/23/18 16:05 Chief Complaint (Nursing): Chest Pain Chief Complaint (Provider): Chest pain History Per: Patient History/Exam Limitations: no limitations Onset/Duration Of Symptoms: Days (today) Current Symptoms Are (Timing): Still Present Additional Complaint(s): Pt. 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 No dyspnea, weakness, headaches, dizziness, abd pain. No back pain. No headaches. No leg pain, long distance travel or hormone use. Started after eating. PCP Dr. Saez of [place]. Past Medical History Vital Signs: Last Vital Signs Temp 98.7 F 05/23/18 16:05 Pulse 90 05/23/18 16:05 Resp 18 05/23/18 16:05 BP 134/68 05/23/18 16:05 Pulse Ox 98 05/23/18 16:05 - Medical History PMH: Diabetes, Gastritis, HTN, Kidney Stones, Chronic Kidney Disease - Surgical History Surgical History: Cholecystectomy, Coronary Stent, Tonsillectomy - Family History Family History: States: Diabetes - Home Medications Home Medications: Ambulatory Orders Medication Instructions Recorded Aspirin [Ecotrin] 81 mg PO DAILY 11/25/17 Atorvastatin [Lipitor] 40 mg PO HS 11/25/17 Esomeprazole Magnesium [Nexium] 40 mg PO DAILY 11/25/17 Glipizide [Glipizide Xl] 10 mg PO BID 11/25/17 Insulin Glargine, Recombina 28 unit SC DAILY 11/25/17 [Lantus] Lisinopril [Zestril] 20 mg PO DAILY 11/25/17 SITagliptin [Januvia] 100 mg PO DAILY 11/25/17 Tamsulosin [Flomax] 0.4 mg PO DAILY 11/25/17 Ondansetron ODT [Zofran ODT] 4 mg PO Q8H PRN #20 odt 01/01/18 Ibuprofen [Motrin] 600 mg PO Q6 PRN #15 tab 01/03/18 Famotidine [Pepcid] 20 mg PO BID #20 tab 02/02/18 Ondansetron ODT [Zofran ODT] 4 mg PO Q8 PRN #10 odt 02/02/18 Cephalexin [Keflex] 500 mg PO QID #28 capsule 02/12/18 Ibuprofen [Motrin Tab] 600 mg PO Q6 #30 tab 03/02/18 Mupirocin 2% Ointment [Bactroban 1 appl TP BID #1 tube 03/12/18 Ointment] - Allergies Allergies/Adverse Reactions: Allergies Allergy/AdvReac Type Severity Reaction Status Date / Time No Known Allergies Allergy Verified 05/23/18 16:05 Review of Systems ROS Statement: Except As Marked, All Systems Reviewed And Found Negative Cardiovascular: Positive for: Chest Pain Physical Exam - Reviewed Nursing Documentation Reviewed: Yes Vital Signs Reviewed: Yes - Physical Exam Appears: Positive for: Non-toxic, No Acute Distress Head Exam: Positive for: ATRAUMATIC, NORMAL INSPECTION, NORMOCEPHALIC Skin: Positive for: Normal Color, Warm, DRY Eye Exam: Positive for: EOMI, Normal appearance, PERRL ENT: Positive for: Normal ENT Inspection Neck: Positive for: Normal, Painless ROM Cardiovascular/Chest: Positive for: Regular Rate, Rhythm. Negative for: Chest Non Tender (mild left chest), Edema Respiratory: Positive for: CNT, Normal Breath Sounds Gastrointestinal/Abdominal: Positive for: Normal Exam, Soft. Negative for: Tenderness Back: Positive for: Normal Inspection. Negative for: L CVA Tenderness, R CVA Tenderness Extremity: Positive for: Normal ROM. Negative for: Tenderness, Pedal Edema Neurologic/Psych: Positive for: Alert, Oriented - ECG ECG: Positive for: Interpreted By Me, Viewed By Me ECG Rhythm: Positive for: Normal QRS, Sinus Rhythm, Nonspecific Changes O2 Sat by Pulse Oximetry: 98 Pulse Ox Interpretation: Normal - Progress ED Course And Treament: 1636: Dr. Flowers to take over care. FU on labs and imaging. Pain controlled. Disposition - Clinical Impression Clinical Impression: Chest pain - Patient ED Disposition Is Patient to be Admitted: Transfer of Care - Disposition Disposition Time: 16:36 Condition: FAIR - POA Present On Arrival: None
[2018-05-23 16:46] LABS: BASO # 0.1 K/uL (0.0-0.2); BASO % 1.5 % (0.0-2.0); EOS # 0.2 K/uL (0.0-0.7); EOS % 2.9 % (0.0-4.0); HEMOGLOBIN 12.6 g/dL (12.0-18.0); LYMPH % 23.2 % (20.0-40.0); MEAN CORPUSCULAR HEMOGLOBIN 22.6 pg (27.0-31.0); MEAN CORPUSCULAR HGB CONC 31.4 g/dL (33.0-37.0); MEAN PLATELET VOLUME 8.8 fl (7.2-11.7); MONO # 0.7 K/uL (0.0-0.8); NEUT # 5.5 K/uL (1.8-7.0); NEUT % 64.4 % (50.0-75.0); RBC 5.58 Mil/uL (4.40-5.90); RED CELL DISTRIBUTION WIDTH 15.4 % (11.5-14.5); WHITE BLOOD COUNT 8.6 K/uL (4.8-10.8)
[2018-05-23 16:52] LABS: PROTHROMBIN TIME 10.7 Seconds (9.8-13.1)
[2018-05-23 16:55] LABS: PARTIAL THROMBOPLASTIN TIME 25.1 Seconds (25.6-37.1)
[2018-05-23 17:23] LABS: ALB/GLOB RATIO 1.2 (1.0-2.1); ALBUMIN 3.8 g/dL (3.5-5.0); ALT/SGPT 18 U/L (21-72); AST/SGOT 16 U/L (17-59); BLOOD UREA NITROGEN 24 mg/dl (9-20); CALCIUM 8.9 mg/dL (8.4-10.2); GFR AFRICAN-AMERICAN > 60; GFR NON-AFRICAN AMERICAN > 60
--- NOTE | 2018-05-23 18:28 | RAD ---
Date of service: 05/23/2018 HISTORY: chest pain COMPARISON: Portable chest 11/25/2017. FINDINGS: LUNGS: No active pulmonary disease. PLEURA: No significant pleural effusion identified, no pneumothorax apparent. CARDIOVASCULAR: Normal. OSSEOUS STRUCTURES: No significant abnormalities. VISUALIZED UPPER ABDOMEN: Normal. OTHER FINDINGS: None. IMPRESSION: No interval acute cardiopulmonary disease appreciated.
[2018-05-23] MEDS: GlipiZIDE 10 mg SR Tab PO SCH (18:29)
--- NOTE | 2018-05-23 21:07 | CP.PCM.CON ---
History of Present Illness - History of Present Illness History of Present Illness: I was asked to see patient by Dr Hwang. Patient is a 72 year old male with PMH HTN CAD s/p PCI RCA, hypercholesterolemia who presents with chest pain. The patient describes left sided chest pain with eating. He states symptoms occur at rest. He has noted current relief of his symptoms. Review of Systems - Constitutional Constitutional: absent: As Per HPI, Anorexia, Chills, Daytime Sleepiness, Excessive Sweating, Fatigue, Fever, Frequent Falls, Headache, Increased Appetite , Lethargy, Malaise, Night Sweats, Snoring, Sleep Apnea, Weight Gain, Weight Loss, Weakness, Other - EENT Eyes: absent: As Per HPI, Blind Spots, Blurred Vision, Change in Vision, Decreased Night Vision, Diplopia, Discharge, Dry Eye, Exophthalmos, Floaters, Irritation, Itchy Eyes, Loss of Peripheral Vision, Pain, Photophobia, Requires Corrective Lenses, Sees Flashes, Spots in Vision, Tunnel Vision, Other Visual Disturbances, Loss of Vision, Other Ears: absent: As Per HPI, Decreased Hearing, Ear Discharge, Ear Pain, Tinnitus, Abnormal Hearing, Disequilibrium, Dizziness, Other Nose/Mouth/Throat: absent: As Per HPI, Epistaxis, Nasal Congestion, Nasal Discharge, Nasal Obstruction, Nasal Trauma, Nose Pain, Post Nasal Drip, Sinus Pain, Sinus Pressure, Bleeding Gums, Change in Voice, Dental Pain, Dry Mouth, Dysphagia, Halitosis, Hoarsness, Lip Swelling, Mouth Lesions, Mouth Pain, Odynophagia, Sore Throat, Throat Swelling, Tongue Swelling, Facial Pain, Neck Pain, Neck Mass, Other - Cardiovascular Cardiovascular: Chest Pain - Respiratory Respiratory: Dyspnea - Gastrointestinal Gastrointestinal: absent: As Per HPI, Abdominal Pain, Belching, Bloating, Change in Bowel Habits, Change in Stool Character, Coffee Ground Emesis, Constipation, Cramping, Diarrhea, Dyspepsia, Dysphagia, Early Satiety, Excessive Flatus, Fecal Incontinence, Heartburn, Hematemesis, Hematochezia, Loose Stools, Melena, Nausea, Odynophagia, Temesmus, Vomiting, Other - Genitourinary Genitourinary: absent: As Per HPI, Change in Urinary Stream, Difficulty Urinating, Dysuria, Flank Pain, Hematuria, Pyuria, Nocturia, Urinary Incontinence, Urinary Frequency, Urinary Hesitance, Urinary Urgency, Voiding Freq/Small Amts, Freq UTI, Hx Renal/Bladder Calculi, Hx /Renal Surgery, Bladder Distension, Other - Musculoskeletal Musculoskeletal: absent: As Per HPI, Abnormal Gait, Arthralgias, Atrophy, Back Pain, Deformity, Joint Swelling, Limited Range of Motion, Loss of Height, Muscle Cramps, Muscle Weakness, Myalgias, Neck Pain, Numbness, Radiating Pain into Limb, Stiffness, Tingling, Other - Integumentary Integumentary: absent: As Per HPI, Acne, Alopecia, Bleeding Lesions, Change in Hair, Change in Nails, Change in Pigmentation, Changing Lesions, Dry Skin, Erythema, Furuncle, Hirsutism, Lesions, New Lesions, Non-Healing Lesions, Photosensitivity, Pruritus, Rash, Skin Pain, Skin Ulcer, Sores, Striae, Swelling , Unusual Bruising, Wounds, Jaundice, Other - Neurological Neurological: absent: As Per HPI, Abnormal Gait, Abnormal Hearing, Abnormal Movements, Abnormal Speech, Behavioral Changes, Burning Sensations, Confusion, Convulsions, Disequilibrium, Dizziness, Numbness, Focal Weakness, Frequent Falls , Headaches, Lack of Coordination, Loss of Vision, Memory Loss, Paresthesias, Radicular Pain, Restless Legs, Sensory Deficit, Syncope, Tingling, Tremor, Vertigo, Weakness, Other Visual Disturbances, Other - Psychiatric Psychiatric: absent: As Per HPI, Abnormal Sleep Pattern, Anhedonia, Anxiety, Auditory Hallucinations, Behavioral Changes, Change in Appetite, Change in Libido, Confusion, Depression, Difficulty Concentrating, Hallucinations, Homicidal Ideation, Hopelessness, Irritability, Memory Loss, Mood Swings, Panic Attacks, Paranoia, Suicidal Ideation, Visual Hallucinations, Tactile Hallucinations, Other - Endocrine Endocrine: absent: As Per HPI, Change in Body Appearance, Change in Libido, Cold Intolorance, Deepening of Voice, Excessive Sweating, Fatigue, Flushing, Heat Intolorance, Increase in Ring/Shoe/Hat Size, Palpitations, Polydipsia, Polyphagia, Polyuria, Other - Hematologic/Lymphatic Hematologic: absent: As Per HPI, Easy Bleeding, Easy Bruising, Lymphadenopathy, Other Past Patient History - Infectious Disease Hx of Infectious Diseases: None - Past Medical History & Family History Past Medical History?: Yes - Past Social History Smoking Status: Current Some Days Smoker - CARDIAC Hx Hypertension: Yes - PULMONARY Hx Respiratory Disorders: No - NEUROLOGICAL Hx Neurological Disorder: No - HEENT Hx HEENT Problems: Yes Hx Cataracts: Yes - RENAL Hx Chronic Kidney Disease: Yes Hx Kidney Stones: Yes - ENDOCRINE/METABOLIC Hx Endocrine Disorders: Yes Hx Diabetes Mellitus Type 2: Yes - HEMATOLOGICAL/ONCOLOGICAL Hx Blood Disorders: No - INTEGUMENTARY Hx Dermatological Problems: No - MUSCULOSKELETAL/RHEUMATOLOGICAL Hx Musculoskeletal Disorders: No Hx Falls: No - GASTROINTESTINAL Hx Gastritis: Yes - GENITOURINARY/GYNECOLOGICAL Hx Genitourinary Disorders: No - PSYCHIATRIC Hx Psychophysiologic Disorder: No Hx Substance Use: No - SURGICAL HISTORY Hx Cholecystectomy: Yes Hx Coronary Stent: Yes Hx Tonsillectomy: Yes - ANESTHESIA Hx Anesthesia: Yes Hx Anesthesia Reactions: No Hx Malignant Hyperthermia: No Meds Allergies/Adverse Reactions: Allergies Allergy/AdvReac Type Severity Reaction Status Date / Time No Known Allergies Allergy Verified 05/23/18 16:05 - Medications Medications: Current Medications Aspirin (Ecotrin) 81 mg PO DAILY [facility] Atorvastatin Calcium (Lipitor) 40 mg PO HS [facility] Glipizide (Glucotrol Xl) 10 mg PO BID [facility] Last Admin: 05/23/18 18:29 Dose: 10 mg Insulin Detemir (Levemir) 28 units SC DAILY [facility] Lisinopril (Zestril) 10 mg PO DAILY [facility] Pantoprazole Sodium (Protonix Ec Tab) 40 mg PO DAILY [facility] Sitagliptin Phosphate (Januvia) 100 mg PO DAILY [facility] Tamsulosin HCl (Flomax) 0.4 mg PO DAILY [facility] Physical Exam - Constitutional Appears: Non-toxic - Head Exam Head Exam: NORMAL INSPECTION - Eye Exam Eye Exam: Normal appearance - ENT Exam ENT Exam: Mucous Membranes Moist - Neck Exam Neck exam: Positive for: Full Rom - Respiratory Exam Respiratory Exam: NORMAL BREATHING PATTERN - Cardiovascular Exam Cardiovascular Exam: REGULAR RHYTHM - GI/Abdominal Exam GI & Abdominal Exam: Normal Bowel Sounds - Rectal Exam Rectal Exam: Deferred - Extremities Exam Extremities exam: Negative for: pedal edema - Back Exam Back exam: NORMAL INSPECTION - Neurological Exam Neurological exam: Alert, Oriented x3 - Psychiatric Exam Psychiatric exam: Normal Affect - Skin Skin Exam: Normal Color Results - Vital Signs Recent Vital Signs: Last Vital Signs Temp 98.7 F 05/23/18 16:05 Pulse 90 05/23/18 16:05 Resp 18 05/23/18 16:05 BP 134/68 05/23/18 16:05 Pulse Ox 98 05/23/18 16:41 - Labs Result Diagrams: 05/23/18 16:38 05/23/18 16:38 Labs: Laboratory Results - last 24 hr 05/23/18 05/23/18 05/23/18 16:38 16:38 16:38 WBC 8.6 RBC 5.58 Hgb 12.6 Hct 40.2 MCV 72.0 L MCH 22.6 L MCHC 31.4 L RDW 15.4 H Plt Count 206 MPV 8.8 Neut % (Auto) 64.4 Lymph % (Auto) 23.2 [place] % (Auto) 8.0 Eos % (Auto) 2.9 Baso % (Auto) 1.5 Neut # (Auto) 5.5 Lymph # (Auto) 2.0 [place] # (Auto) 0.7 Eos # (Auto) 0.2 Baso # (Auto) 0.1 PT 10.7 INR 1.0 APTT 25.1 L Sodium 140 Potassium 4.4 Chloride 104 Carbon Dioxide 23 Anion Gap 17 BUN 24 H Creatinine 1.1 Est GFR ( Amer) > 60 Est GFR (Non-Af Amer) > 60 Random Glucose 231 H Calcium 8.9 Total Bilirubin 0.3 AST 16 L ALT 18 L D Alkaline Phosphatase 79 Troponin I < 0.0120 Total Protein 6.9 Albumin 3.8 Globulin 3.1 Albumin/Globulin Ratio 1.2 Alcohol, Quantitative < 10 - EKG Data EKG Interpreted by: Myself EKG shows normal: Sinus rhythm Assessment & Plan (1) CAD (coronary artery disease) Assessment and Plan: previous stent placement of the RCA. will recommend cardaic enzymes x 3. If negative can d/c home and scheduled\ outpatient stress test Status: Acute (2) Hypercholesteremia Assessment and Plan: medical therapy Status: Acute
[2018-05-23] MEDS ORDERED: Insulin Detemir 100 Units/ml Inj SC SCH (22:00)
[2018-05-24 04:28] LABS: BASO # 0.1 K/uL (0.0-0.2); BASO % 0.9 % (0.0-2.0); EOS # 0.4 K/uL (0.0-0.7); EOS % 5.8 % (0.0-4.0); HEMOGLOBIN 13.1 g/dL (12.0-18.0); LYMPH % 29.1 % (20.0-40.0); MEAN CELL VOLUME 70.8 fl (80.0-94.0); MEAN CORPUSCULAR HEMOGLOBIN 22.8 pg (27.0-31.0); MEAN CORPUSCULAR HGB CONC 32.2 g/dL (33.0-37.0); MEAN PLATELET VOLUME 8.7 fl (7.2-11.7); MONO # 0.7 K/uL (0.0-0.8); MONO % 10.4 % (0.0-10.0); NEUT # 3.7 K/uL (1.8-7.0); NEUT % 53.8 % (50.0-75.0); RBC 5.73 Mil/uL (4.40-5.90); RED CELL DISTRIBUTION WIDTH 15.2 % (11.5-14.5); WHITE BLOOD COUNT 6.9 K/uL (4.8-10.8)
[2018-05-24 04:51] LABS: LDL CHOLESTEROL 62 mg/dL (0-129)
[2018-05-24 05:06] LABS: BLOOD UREA NITROGEN 22 mg/dl (9-20); GFR AFRICAN-AMERICAN > 60; GFR NON-AFRICAN AMERICAN > 60
[2018-05-24 05:07] LABS: ALB/GLOB RATIO 1.2 (1.0-2.1); ALBUMIN 3.6 g/dL (3.5-5.0); ALT/SGPT 22 U/L (21-72); AST/SGOT 18 U/L (17-59); CALCIUM 9.2 mg/dL (8.4-10.2); HDL CHOLESTEROL 41 MG/DL (30-70)
[2018-05-24 07:33] VITALS: O2SAT 97
--- NOTE | 2018-05-24 08:19 | CP.PCM.HP ---
History of Present Illness - History of Present Illness History of Present Illness: pt admitted for left sided cp after eating. no f/c, n/v/d. states only has pain when he presses on left side of chest. per rn pt started w/ diarrhea this am. pain started yesterday after eating chicken/rice at assisted. all labs noted. trops x 2 negative. pending echo pt is s/p stent for cad. no abd pain, no blood in stool reported. Present on Admission - Present on Admission Any Indicators Present on Admission: Yes History of Uncontrolled Diabetes: Yes Review of Systems - Cardiovascular Cardiovascular: As Per HPI, Chest Pain - Gastrointestinal Gastrointestinal: As Per HPI, Diarrhea Past Patient History - Infectious Disease Hx of Infectious Diseases: None - Past Medical History & Family History Past Medical History?: Yes - Past Social History Smoking Status: Current Some Days Smoker - CARDIAC Hx Hypertension: Yes - PULMONARY Hx Respiratory Disorders: No - NEUROLOGICAL Hx Neurological Disorder: No - HEENT Hx HEENT Problems: Yes Hx Cataracts: Yes - RENAL Hx Chronic Kidney Disease: Yes Hx Kidney Stones: Yes - ENDOCRINE/METABOLIC Hx Endocrine Disorders: Yes Hx Diabetes Mellitus Type 2: Yes - HEMATOLOGICAL/ONCOLOGICAL Hx Blood Disorders: No - INTEGUMENTARY Hx Dermatological Problems: No - MUSCULOSKELETAL/RHEUMATOLOGICAL Hx Musculoskeletal Disorders: No Hx Falls: No - GASTROINTESTINAL Hx Gastritis: Yes - GENITOURINARY/GYNECOLOGICAL Hx Genitourinary Disorders: No - PSYCHIATRIC Hx Psychophysiologic Disorder: No Hx Substance Use: No - SURGICAL HISTORY Hx Cholecystectomy: Yes Hx Coronary Stent: Yes Hx Tonsillectomy: Yes - ANESTHESIA Hx Anesthesia: Yes Hx Anesthesia Reactions: No Hx Malignant Hyperthermia: No Meds Allergies/Adverse Reactions: Allergies Allergy/AdvReac Type Severity Reaction Status Date / Time No Known Allergies Allergy Verified 05/23/18 16:05 Physical Exam - Constitutional Appears: Well, Non-toxic, No Acute Distress - Head Exam Head Exam: ATRAUMATIC, NORMAL INSPECTION, NORMOCEPHALIC - Eye Exam Eye Exam: EOMI, Normal appearance, PERRL Pupil Exam: NORMAL ACCOMODATION, PERRL - ENT Exam ENT Exam: Mucous Membranes Moist, Normal Exam - Neck Exam Neck exam: Positive for: Normal Inspection - Respiratory Exam Respiratory Exam: Clear to Auscultation Bilateral, NORMAL BREATHING PATTERN - Cardiovascular Exam Cardiovascular Exam: REGULAR RHYTHM, RRR, +S1, +S2 - GI/Abdominal Exam GI & Abdominal Exam: Normal Bowel Sounds, Soft. absent: Tenderness - Extremities Exam Extremities exam: Positive for: full ROM, normal capillary refill, normal inspection, pedal pulses present - Back Exam Back exam: FULL ROM, NORMAL INSPECTION - Neurological Exam Neurological exam: Alert, CN II-XII Intact, Normal Gait, Oriented x3, Reflexes Normal - Psychiatric Exam Psychiatric exam: Normal Affect, Normal Mood - Skin Skin Exam: Dry, Intact, Normal Color, Warm Results - Vital Signs Recent Vital Signs: Last Vital Signs Temp 98.0 F 05/24/18 07:32 Pulse 62 05/24/18 07:32 Resp 20 05/24/18 07:32 BP 139/63 05/24/18 07:32 Pulse Ox 97 05/24/18 07:32 - Labs Result Diagrams: 05/24/18 04:20 05/24/18 04:20 Labs: Laboratory Results - last 24 hr 05/23/18 05/23/18 05/23/18 16:38 16:38 16:38 WBC 8.6 RBC 5.58 Hgb 12.6 Hct 40.2 MCV 72.0 L MCH 22.6 L MCHC 31.4 L RDW 15.4 H Plt Count 206 MPV 8.8 Neut % (Auto) 64.4 Lymph % (Auto) 23.2 [place] % (Auto) 8.0 Eos % (Auto) 2.9 Baso % (Auto) 1.5 Neut # (Auto) 5.5 Lymph # (Auto) 2.0 [place] # (Auto) 0.7 Eos # (Auto) 0.2 Baso # (Auto) 0.1 PT 10.7 INR 1.0 APTT 25.1 L Sodium 140 Potassium 4.4 Chloride 104 Carbon Dioxide 23 Anion Gap 17 BUN 24 H Creatinine 1.1 Est GFR ( Amer) > 60 Est GFR (Non-Af Amer) > 60 POC Glucose (mg/dL) Random Glucose 231 H Calcium 8.9 Phosphorus Magnesium Total Bilirubin 0.3 AST 16 L ALT 18 L D Alkaline Phosphatase 79 Troponin I < 0.0120 Total Protein 6.9 Albumin 3.8 Globulin 3.1 Albumin/Globulin Ratio 1.2 Triglycerides Cholesterol LDL Cholesterol Direct HDL Cholesterol Alcohol, Quantitative < 10 05/23/18 05/24/18 05/24/18 22:14 04:20 04:20 WBC 6.9 RBC 5.73 Hgb 13.1 Hct 40.6 MCV 70.8 L MCH 22.8 L MCHC 32.2 L RDW 15.2 H Plt Count 197 MPV 8.7 Neut % (Auto) 53.8 Lymph % (Auto) 29.1 [place] % (Auto) 10.4 H Eos % (Auto) 5.8 H Baso % (Auto) 0.9 Neut # (Auto) 3.7 Lymph # (Auto) 2.0 [place] # (Auto) 0.7 Eos # (Auto) 0.4 Baso # (Auto) 0.1 PT INR APTT Sodium 142 Potassium 4.1 Chloride 107 Carbon Dioxide 25 Anion Gap 14 BUN 22 H Creatinine 0.8 Est GFR ( Amer) > 60 Est GFR (Non-Af Amer) > 60 POC Glucose (mg/dL) 168 H Random Glucose 99 Calcium 9.2 Phosphorus Magnesium Total Bilirubin 0.7 AST 18 ALT 22 Alkaline Phosphatase 68 Troponin I < 0.0120 Total Protein 6.7 Albumin 3.6 Globulin 3.1 Albumin/Globulin Ratio 1.2 Triglycerides 89 Cholesterol 124 LDL Cholesterol Direct 62 HDL Cholesterol 41 Alcohol, Quantitative 05/24/18 05/24/18 04:20 07:17 WBC RBC Hgb Hct MCV MCH MCHC RDW Plt Count MPV Neut % (Auto) Lymph % (Auto) [place] % (Auto) Eos % (Auto) Baso % (Auto) Neut # (Auto) Lymph # (Auto) [place] # (Auto) Eos # (Auto) Baso # (Auto) PT INR APTT Sodium Potassium Chloride Carbon Dioxide Anion Gap BUN Creatinine Est GFR ( Amer) Est GFR (Non-Af Amer) POC Glucose (mg/dL) 81 Random Glucose Calcium Phosphorus 3.3 Magnesium 1.9 Total Bilirubin AST ALT Alkaline Phosphatase Troponin I Total Protein Albumin Globulin Albumin/Globulin Ratio Triglycerides Cholesterol LDL Cholesterol Direct HDL Cholesterol Alcohol, Quantitative Assessment & Plan (1) Chest pain Assessment and Plan: trops x 3, 1st 2 negative cardio asa, echo Status: Acute (2) DVT prophylaxis Assessment and Plan: scd and ae hose ambulation lovenoxi f admited over 24h Status: Acute (3) Diarrhea Assessment and Plan: imodium. stool c/s if diarrhea worsens, blood in stool, fever occurs Status: Acute (4) Type 2 diabetes mellitus with hyperglycemia Assessment and Plan: home meds, diet, glucose riss if glucose remains uncontrolled Status: Acute Decision To Admit - Pt Status Changed To: Hospital Disposition Of: Observation - . Bed Request Type: Telemetry Admitting Physician: Hedy Franks
[2018-05-24] MEDS ORDERED: Pantoprazole 40 mg EC Tab PO SCH (09:00)
[2018-05-24] MEDS ORDERED: INSULIN GLARGINE HUM REC ANLOG 28 UNIT SC SCH (09:00)
--- NOTE | 2018-05-24 09:19 | CARD ---
APPROVED REPORT Date of service: 05/23/2018 EKG Measurement Heart [id number] <Conclusion> Sinus rhythm with 1st degree AV block Left axis deviation Septal infarct, age undetermined Inferior infarct, age undetermined Abnormal ECG
[2018-05-24] MEDS ORDERED: Perflutren Lipid Microsphere 1.5 ML SUS IV ONE (09:37)
[2018-05-24] MEDS: GlipiZIDE 10 mg SR Tab PO SCH (10:05)
--- NOTE | 2018-05-24 13:26 | CARD ---
APPROVED REPORT Date of service: 05/24/2018 EXAM: Two-dimensional and M-mode echocardiogram with Doppler, color Doppler with contrast. Other Information Quality : GoodRhythm : NSR INDICATION Chest Pain Echo Enhancing Agent Indication: Endocardial border delineation Agent/Amount Used: Definity 2D DIMENSIONS IVSd1.10 (0.7-1.1cm)LVDd3.90 (3.9-5.9cm) LVOT Diameter2.24 (1.8-2.4cm)PWd1.13 (0.7-1.1cm) IVSs1.69 (0.8-1.2cm)LVDs2.45 (2.5-4.0cm) FS (%) 34.7 %PWs1.33 (0.8-1.2cm) M-Mode DIMENSIONS Left Atrium (MM)5.09 (2.5-4.0cm)IVSd1.41 (0.7-1.1cm) Aortic Root3.44 (2.2-3.7cm)LVDd5.25 (4.0-5.6cm) Aortic Cusp Exc.2.28 (1.5-2.0cm)PWd1.13 (0.7-1.1cm) IVSs2.00 cmFS (%) 67 % LVDs1.75 (2.0-3.8cm)PWs2.03 cm Aortic Valve AoV Peak Scumdfnc030.9cm/sAoV VTI22.3cmAO Peak GR.5mmHg LVOT Peak Mootbkba53.2cm/sLVOT VTI20.67cmAO Mean GR.3mmHg ENID (VMAX)1.88ci4JAT (VTI)1.78cm2 Mitral Valve MV E Goomqseq52.9cm/sMV DECEL VNEH168rlOE A Jzrpskjo01.2cm/s MV PFP96uuZ/A ratio0.8MVA (PHT)2.41cm2 TDI Lateral E' Peak V10.19cm/sMedial E' Peak V7.33cm/sE/Lateral E'7.2 E/Medial E'9.9 Pulmonary Valve PV Peak Xemvssyl040.2cm/s LEFT VENTRICLE The left ventricle is normal size. There is normal left ventricular wall thickness. The left ventricular function is normal. The left ventricular ejection fraction is within the normal range. Estimated EF 65% No regional wall motion abnormalities noted. The left ventricular diastolic function is consistent with abnormal relaxation No left ventricle thrombus noted on this study. There is no ventricular septal defect visualized. There is no mass noted in the left ventricle. RIGHT VENTRICLE The right ventricle is normal size. There is normal right ventricular wall thickness. The right ventricular systolic function is normal. ATRIA The left atrium size is normal. The right atrium size is normal. The interatrial septum is intact with no evidence for an atrial septal defect. AORTIC VALVE The aortic valve is normal in structure and function. There is mild sclerosis There is no regurgitation. There is no valvular stenosis. MITRAL VALVE The mitral valve is normal in structure There is no mitral valve stenosis. There is no mitral valve regurgitation noted. TRICUSPID VALVE The tricuspid valve is normal in structure There is no tricuspid valve regurgitation noted. There is no tricuspid valve stenosis. PULMONIC VALVE The pulmonary valve is normal in structure There is no pulmonic valvular regurgitation. GREAT VESSELS The aortic root is normal in size. The ascending aorta is normal in size. The pulmonary artery is normal. The IVC is normal in size and collapses >50% with inspiration. PERICARDIAL EFFUSION There is no pericardial effusion. <Conclusion> Normal LV systolic function with doppler hemodynamics consistent with abnormal relaxation Otherwise essentially normal transthoracic echocardiogram.
[2018-05-24 14:32] VITALS: BP 137/60; PULSE 84; RESP 17; TEMP 98.3
[2018-05-24] MEDS ORDERED: Insulin Detemir 100 Units/ml Inj SC SCH (22:00)
--- NOTE | 2018-05-25 16:52 | CP.PCM.DIS ---
Provider - Provider Date of Admission: 05/23/18 16:45 Attending physician: Hedy Franks MD Time Spent in preparation of Discharge (in minutes): 15 Diagnosis - Discharge Diagnosis (1) Chest pain Status: Acute (2) DVT prophylaxis Status: Acute (3) Diarrhea Status: Acute (4) Type 2 diabetes mellitus with hyperglycemia Status: Acute Hospital Course - Lab Results Lab Results: Most Recent Lab Values WBC 6.9 K/uL (4.8-10.8) 05/24/18 04:20 RBC 5.73 Mil/uL (4.40-5.90) 05/24/18 04:20 Hgb 13.1 g/dL (12.0-18.0) 05/24/18 04:20 Hct 40.6 % (35.0-51.0) 05/24/18 04:20 MCV 70.8 fl (80.0-94.0) L 05/24/18 04:20 MCH 22.8 pg (27.0-31.0) L 05/24/18 04:20 MCHC 32.2 g/dL (33.0-37.0) L 05/24/18 04:20 RDW 15.2 % (11.5-14.5) H 05/24/18 04:20 Plt Count 197 K/uL (130-400) 05/24/18 04:20 MPV 8.7 fl (7.2-11.7) 05/24/18 04:20 Neut % (Auto) 53.8 % (50.0-75.0) 05/24/18 04:20 Lymph % (Auto) 29.1 % (20.0-40.0) 05/24/18 04:20 [place] % (Auto) 10.4 % (0.0-10.0) H 05/24/18 04:20 Eos % (Auto) 5.8 % (0.0-4.0) H 05/24/18 04:20 Baso % (Auto) 0.9 % (0.0-2.0) 05/24/18 04:20 Neut # (Auto) 3.7 K/uL (1.8-7.0) 05/24/18 04:20 Lymph # (Auto) 2.0 K/uL (1.0-4.3) 05/24/18 04:20 [place] # (Auto) 0.7 K/uL (0.0-0.8) 05/24/18 04:20 Eos # (Auto) 0.4 K/uL (0.0-0.7) 05/24/18 04:20 Baso # (Auto) 0.1 K/uL (0.0-0.2) 05/24/18 04:20 PT 10.7 Seconds (9.8-13.1) 05/23/18 16:38 INR 1.0 05/23/18 16:38 APTT 25.1 Seconds (25.6-37.1) L 05/23/18 16:38 Sodium 142 mmol/l (132-148) 05/24/18 04:20 Potassium 4.1 MMOL/L (3.6-5.0) 05/24/18 04:20 Chloride 107 mmol/L (98-107) 05/24/18 04:20 Carbon Dioxide 25 mmol/L (22-30) 05/24/18 04:20 Anion Gap 14 (10-20) 05/24/18 04:20 BUN 22 mg/dl (9-20) H 05/24/18 04:20 Creatinine 0.8 mg/dl (0.8-1.5) 05/24/18 04:20 Est GFR ( Amer) > 60 05/24/18 04:20 Est GFR (Non-Af Amer) > 60 05/24/18 04:20 POC Glucose (mg/dL) 120 mg/dL (65-110) H 05/24/18 12:31 Random Glucose 99 mg/dL (75-110) 05/24/18 04:20 Hemoglobin A1c 9.3 % (4.2-6.5) H D 05/24/18 04:20 Calcium 9.2 mg/dL (8.4-10.2) 05/24/18 04:20 Phosphorus 3.3 mg/dl (2.5-4.5) 05/24/18 04:20 Magnesium 1.9 MG/DL (1.6-2.3) 05/24/18 04:20 Total Bilirubin 0.7 mg/dl (0.2-1.3) 05/24/18 04:20 AST 18 U/L (17-59) 05/24/18 04:20 ALT 22 U/L (21-72) 05/24/18 04:20 Alkaline Phosphatase 68 U/L (38-126) 05/24/18 04:20 Troponin I < 0.0120 ng/mL (0.00-0.120) 05/24/18 12:49 Total Protein 6.7 G/DL (6.3-8.2) 05/24/18 04:20 Albumin 3.6 g/dL (3.5-5.0) 05/24/18 04:20 Globulin 3.1 gm/dL (2.2-3.9) 05/24/18 04:20 Albumin/Globulin Ratio 1.2 (1.0-2.1) 05/24/18 04:20 Triglycerides 89 mg/DL (0-149) 05/24/18 04:20 Cholesterol 124 mg/dL (0-199) 05/24/18 04:20 LDL Cholesterol Direct 62 mg/dL (0-129) 05/24/18 04:20 HDL Cholesterol 41 MG/DL (30-70) 05/24/18 04:20 Alcohol, Quantitative < 10 mg/dl (0-10) 05/23/18 16:38 - Hospital Course Hospital Course: cardio trops asa echo imodium Discharge Exam - Head Exam Head Exam: ATRAUMATIC, NORMAL INSPECTION, NORMOCEPHALIC Discharge Plan - Discharge Medications Prescriptions: Loperamide [Imodium] 2 mg PO QID PRN #10 cap PRN Reason: Diarrhea - Follow Up Plan Condition: FAIR Disposition: HOME/ ROUTINE Instructions: Chest Pain That Is Not Caused by the Heart (DC) Additional Instructions: final dx-cp, diarrhea no further diarrhea, no cp, cleared by cardio for dc f/u rmg 2 days, rted prn, meds per med rec
== END 2018-05-24 14:31 | disposition home or self-care (01) ==
LOC: H.ER 15:56 → H.ERHOLD 16:45
PROVIDERS: ADMIT Family Medicine; ATTEND Family Medicine
DX: R07.9 Chest pain, unspecified (principal); E11.65 Type 2 diabetes mellitus with hyperglycemia; I25.10 Atherosclerotic heart disease of native coronary artery without angina pectoris; I12.9 Hypertensive chronic kidney disease with stage 1 through stage 4 chronic kidney disease, or unspecified chronic kidney disease; E11.22 Type 2 diabetes mellitus with diabetic chronic kidney disease; N18.9 Chronic kidney disease, unspecified; E78.00 Pure hypercholesterolemia, unspecified; K29.70 Gastritis, unspecified, without bleeding; F17.210 Nicotine dependence, cigarettes, uncomplicated; Z95.5 Presence of coronary angioplasty implant and graft; Z79.82 Long term (current) use of aspirin; Z79.84 Long term (current) use of oral hypoglycemic drugs; Z87.442 Personal history of urinary calculi
CPT/HCPCS: 71045; 80053; 80061; 82948; 83036; 83735; 84100; 84484; 85025; 85610; 85730; 93005; 93306; 96372; 99285; G0378; G0480; J7030

== ENCOUNTER 2018-09-19 12:51 | Emergency (ER) | payer MEDICAID, MEDICARE, OTHER ==
[2018-09-19 12:51] VITALS: BMI 26.2
[2018-09-19 13:19] VITALS: RESP 18
[2018-09-19] MEDS ORDERED: Sodium Chloride 0.9% 1,000 ML IV STA (14:53)
--- NOTE | 2018-09-19 14:56 | ED PDOC ---
HPI: General Adult Time Seen by Provider: 09/19/18 13:09 Chief Complaint (Nursing): Abnormal Labs Chief Complaint (Provider): Abnormal Labs History Per: Patient History/Exam Limitations: no limitations Additional Complaint(s): 73 year old male with pmHx of DM, CAD, and arthritis, referred to ED by his PCP for an evaluation of elevated glucose and UTI seen on recent labs. Patient states that he went for a routine physical last week and notified of results prior to arrival. He reports generalized weakness but, otherwise, denies any fever, chills, chest pain, shortness of breath, or numbness. Of note, patient reports discontinuation of insulin use 2 weeks ago because he had difficulty with injecting himself but state that he knows how. PCP: patient cannot recall. Past Medical History Reviewed: Historical Data, Nursing Documentation, Vital Signs Vital Signs: Last Vital Signs Temp 97 F L 09/19/18 13:16 Pulse 83 09/19/18 13:16 Resp 18 09/19/18 13:16 BP 137/62 09/19/18 13:16 Pulse Ox 98 09/19/18 13:16 - Medical History PMH: Arthritis, CAD, Diabetes, Gastritis, Gall Bladder Disease, HTN, Kidney Stones, Chronic Kidney Disease - Surgical History Surgical History: Cholecystectomy, Coronary Stent, Tonsillectomy - Family History Family History: States: Diabetes - Social History Current smoker - smoking cessation education provided: Yes SMOKER/PACKS PER DAY:: 2 Alcohol: None Drugs: Denies - Home Medications Home Medications: Ambulatory Orders Medication Instructions Recorded RX: Aspirin [Ecotrin] 81 mg PO DAILY 11/25/17 RX: Atorvastatin [Lipitor] 40 mg PO HS 11/25/17 RX: Esomeprazole Magnesium [Nexium] 40 mg PO DAILY 11/25/17 RX: Glipizide [Glipizide Xl] 10 mg PO BID 11/25/17 RX: SITagliptin [Januvia] 100 mg PO DAILY 11/25/17 RX: Tamsulosin [Flomax] 0.4 mg PO DAILY 11/25/17 RX: Insulin Glargine,Hum.rec.anlog 28 unit SC DAILY 05/23/18 [Basaglar Kwikpen U-100] RX: Lisinopril [Zestril] 10 mg PO DAILY 05/23/18 RX: Loperamide [Imodium] 2 mg PO QID PRN #10 cap 05/24/18 - Allergies Allergies/Adverse Reactions: Allergies Allergy/AdvReac Type Severity Reaction Status Date / Time No Known Allergies Allergy Verified 09/19/18 13:16 Review of Systems ROS Statement: Except As Marked, All Systems Reviewed And Found Negative Constitutional: Positive for: Weakness (generalized). Negative for: Fever, Chills Cardiovascular: Negative for: Chest Pain Respiratory: Negative for: Shortness of Breath Neurological: Negative for: Numbness Physical Exam - Reviewed Nursing Documentation Reviewed: Yes Vital Signs Reviewed: Yes - Physical Exam Appears: Positive for: Non-toxic, No Acute Distress Head Exam: Positive for: ATRAUMATIC, NORMAL INSPECTION, NORMOCEPHALIC Skin: Positive for: Normal Color Eye Exam: Positive for: Normal appearance, EOMI, PERRL ENT: Positive for: Normal ENT Inspection Neck: Positive for: Normal Cardiovascular/Chest: Positive for: Regular Rate, Rhythm Respiratory: Positive for: Normal Breath Sounds. Negative for: Respiratory Distress Gastrointestinal/Abdominal: Positive for: Normal Exam, Soft. Negative for: Tenderness Extremity: Positive for: Normal ROM (upper/lower) Neurologic/Psych: Positive for: Alert, extension edger II-XII, Oriented (x3). Negative for: Motor/Sensory Deficits, Aphasia, Facial Droop - Laboratory Results Result Diagrams: 09/19/18 14:55 09/19/18 14:55 - ECG O2 Sat by Pulse Oximetry: 98 (RA) Pulse Ox Interpretation: Normal Medical Decision Making Medical Decision Making: Time: 1450 Initial Plan: told that has high sugar and possible UTI * Labs * CXR * IV fluids * Urine C&S Time: 1509 --CXR FINDINGS: LUNGS: No active pulmonary disease. PLEURA: No significant pleural effusion identified. No pneumothorax apparent. CARDIOVASCULAR: No aortic atherosclerotic calcification present. Normal cardiac size. No pulmonary vascular congestion. OSSEOUS STRUCTURES: No significant abnormalities. VISUALIZED UPPER ABDOMEN: Normal. OTHER FINDINGS: None. IMPRESSION: No active disease. Time: 1703 --Labs reviewed: elevated glucose. negative for UTI on UA. pt requested food now. a tray. Time: 181 --Patient is medically stable and sugars have improved while here. No anion gap noted. pt stable for dc home, encouraged pt to be compliant w insulin and follow up as an outpt. Scribe Attestation: Documented by Hortencia Lennon, acting as a scribe for Marcus Mahmood MD. Provider Scribe Attestation: All medical record entries made by the Scribe were at my direction and personally dictated by me. I have reviewed the chart and agree that the record accurately reflects my personal performance of the history, physical exam, medical decision making, and the department course for this patient. I have also personally directed, reviewed, and agree with the discharge instructions and disposition. Disposition - Clinical Impression Clinical Impression: Hyperglycemia - Patient ED Disposition Is Patient to be Admitted: No Counseled Patient/Family Regarding: Studies Performed, Diagnosis, Need For Followup - Disposition Disposition: Routine/Home Disposition Time: 19:00 Condition: IMPROVED Additional Instructions: follow up with your primary doctor in 1-2 days return to the ED with any worsening or concerning symptoms Instructions: Hyperglycemia, Adult (DC) Forms: [employer] (Danish)
[2018-09-19 15:06] LABS: BASO # 0.1 K/uL (0.0-0.2); BASO % 0.7 % (0.0-2.0); EOS # 0.2 K/uL (0.0-0.7); EOS % 2.3 % (0.0-4.0); HEMOGLOBIN 14.1 g/dL (12.0-18.0); LYMPH # 2.2 K/uL (1.0-4.3); LYMPH % 25.5 % (20.0-40.0); MEAN CELL VOLUME 71.4 fl (80.0-94.0); MEAN CORPUSCULAR HEMOGLOBIN 22.4 pg (27.0-31.0); MEAN CORPUSCULAR HGB CONC 31.3 g/dL (33.0-37.0); MEAN PLATELET VOLUME 9.2 fl (7.2-11.7); MONO # 0.6 K/uL (0.0-0.8); MONO % 7.6 % (0.0-10.0); NEUT # 5.4 K/uL (1.8-7.0); NEUT % 63.9 % (50.0-75.0); RBC 6.29 Mil/uL (4.40-5.90); RED CELL DISTRIBUTION WIDTH 15.3 % (11.5-14.5); WHITE BLOOD COUNT 8.5 K/uL (4.8-10.8)
[2018-09-19 15:13] LABS: ALB/GLOB RATIO 1.1 (1.0-2.1); ALBUMIN 4.1 g/dL (3.5-5.0); ALT/SGPT 31 U/L (21-72); AST/SGOT 22 U/L (17-59); BLOOD UREA NITROGEN 27 mg/dl (9-20); CALCIUM 9.4 mg/dL (8.4-10.2); GFR NON-AFRICAN AMERICAN > 60
--- NOTE | 2018-09-19 15:13 | RAD ---
Date of service: 09/19/2018 HISTORY: hi sugar COMPARISON: 05/23/2018 TECHNIQUE: Chest PA and lateral FINDINGS: LUNGS: No active pulmonary disease. PLEURA: No significant pleural effusion identified. No pneumothorax apparent. CARDIOVASCULAR: No aortic atherosclerotic calcification present. Normal cardiac size. No pulmonary vascular congestion. OSSEOUS STRUCTURES: No significant abnormalities. VISUALIZED UPPER ABDOMEN: Normal. OTHER FINDINGS: None. IMPRESSION: No active disease.
[2018-09-19 15:52] LABS: SQUAMOUS EPITHIAL < 1 /hpf (0-5); URINE BACTERIA RARE (<OCC); URINE BILIRUBIN NEGATIVE (NEGATIVE); URINE BLOOD NEGATIVE (NEGATIVE); URINE CLARITY SLIGHTY-CLOUDY (Clear); URINE COLOR YELLOW (YELLOW); URINE GLUCOSE (UA) >=500 mg/dL (Normal); URINE LEUKOCYTE ESTERASE NEG Leu/uL (Negative); URINE PROTEIN NEGATIVE (NEGATIVE); URINE UROBILINOGEN 0.2-1.0 mg/dL (0.2-1.0)
[2018-09-19] MEDS ORDERED: Insulin Regular 100 units/ml SC STA (17:04)
[2018-09-19] MEDS ORDERED: Insulin Regular 100 units/ml ONE (17:34)
[2018-09-19 19:16] VITALS: BP 135/62; PULSE 69; TEMP 97.8
[2018-09-20 18:16] VITALS: O2SAT 98
== END 2018-09-19 19:10 | disposition home or self-care (01) ==
LOC: H.ER 12:51
DX: E11.65 Type 2 diabetes mellitus with hyperglycemia (principal); Z79.4 Long term (current) use of insulin; Z95.5 Presence of coronary angioplasty implant and graft; I12.9 Hypertensive chronic kidney disease with stage 1 through stage 4 chronic kidney disease, or unspecified chronic kidney disease; F17.210 Nicotine dependence, cigarettes, uncomplicated
CPT/HCPCS: 71046; 80053; 81003; 82948; 85025; 87086; 96360; 96372; 99282; J7030

== ENCOUNTER 2018-10-04 10:52 | Emergency (ER) | payer MEDICAID, MEDICARE, OTHER ==
[2018-10-04 10:52] VITALS: BMI 26.2
[2018-10-04 11:09] VITALS: RESP 18
[2018-10-04] MEDS ORDERED: Iohexol 240 (50 ml) PO ONE (12:42)
[2018-10-04] MEDS ORDERED: Sodium Chloride 0.9% 1,000 ML IV STA (12:42)
--- NOTE | 2018-10-04 12:53 | ED PDOC ---
HPI: Abdomen Time Seen by Provider: 10/04/18 12:13 Chief Complaint (Nursing): Abdominal Pain Chief Complaint (Provider): Abdominal Pain History Per: Patient History/Exam Limitations: no limitations Onset/Duration Of Symptoms: Days (x2) Current Symptoms Are (Timing): Still Present Additional Complaint(s): 73 year old male, well known to this ED for multiple visits, presenting for evaluation of vomiting and abdominal pain x2 days. Patient otherwise denies any fevers, chills, chest pain, shortness of breath, or diarrhea. Past Medical History Reviewed: Historical Data, Nursing Documentation, Vital Signs Vital Signs: Last Vital Signs Temp 97.5 F L 10/04/18 11:08 Pulse 92 H 10/04/18 11:08 Resp 18 10/04/18 11:08 BP 157/71 H 10/04/18 11:08 Pulse Ox 97 10/04/18 11:08 - Medical History PMH: Arthritis, CAD, Diabetes, Gastritis, Gall Bladder Disease, HTN, Kidney Stones, Chronic Kidney Disease - Surgical History Surgical History: Cholecystectomy, Coronary Stent, Tonsillectomy - Family History Family History: States: Diabetes - Home Medications Home Medications: Ambulatory Orders Medication Instructions Recorded Aspirin [Ecotrin] 81 mg PO DAILY 11/25/17 Atorvastatin [Lipitor] 40 mg PO HS 11/25/17 Esomeprazole Magnesium [Nexium] 40 mg PO DAILY 11/25/17 Glipizide [Glipizide Xl] 10 mg PO BID 11/25/17 SITagliptin [Januvia] 100 mg PO DAILY 11/25/17 Tamsulosin [Flomax] 0.4 mg PO DAILY 11/25/17 Insulin Glargine,Hum.rec.anlog 28 unit SC DAILY 05/23/18 [Basaglar Kwikpen U-100] Lisinopril [Zestril] 10 mg PO DAILY 05/23/18 Loperamide [Imodium] 2 mg PO QID PRN #10 cap 05/24/18 - Allergies Allergies/Adverse Reactions: Allergies Allergy/AdvReac Type Severity Reaction Status Date / Time No Known Allergies Allergy Verified 09/19/18 13:16 Review of Systems ROS Statement: Except As Marked, All Systems Reviewed And Found Negative Constitutional: Negative for: Fever, Chills Cardiovascular: Negative for: Chest Pain Respiratory: Negative for: Shortness of Breath Gastrointestinal: Positive for: Nausea, Vomiting, Abdominal Pain. Negative for: Diarrhea Physical Exam - Reviewed Nursing Documentation Reviewed: Yes Vital Signs Reviewed: Yes - Physical Exam Appears: Positive for: Non-toxic, No Acute Distress Head Exam: Positive for: ATRAUMATIC, NORMAL INSPECTION, NORMOCEPHALIC Skin: Positive for: Normal Color, Warm, Dry Eye Exam: Positive for: EOMI, Normal appearance, PERRL ENT: Positive for: Normal ENT Inspection Neck: Positive for: Normal, Painless ROM, Supple Cardiovascular/Chest: Positive for: Regular Rate, Rhythm. Negative for: Murmur Respiratory: Positive for: Normal Breath Sounds. Negative for: Respiratory Distress Gastrointestinal/Abdominal: Positive for: Normal Exam, Soft. Negative for: Tenderness Back: Positive for: Normal Inspection. Negative for: L CVA Tenderness, R CVA Tenderness, Vertebral Tenderness Extremity: Positive for: Normal ROM. Negative for: Pedal Edema, Deformity Neurologic/Psych: Positive for: Alert, Oriented. Negative for: Motor/Sensory Deficits - Laboratory Results Result Diagrams: 10/04/18 12:50 10/04/18 12:50 - ECG O2 Sat by Pulse Oximetry: 97 (RA) Pulse Ox Interpretation: Normal Medical Decision Making Medical Decision Makin Plan: Patient with 1 episode of non-bloody, non-bilious vomiting in ER. Will workup for acute pathology. -CT abdomen and pelvis -CMP -Lipase -CBC -1L NS IVB -Zofran 4mg IV -Reevaluation Time: 1555 CT RESULTS FINDINGS: LOWER THORAX: A trace left lateral subpleural atelectasis with trace pleural thickening here suggested. A hiatal hernia suggested on the current study-the distal esophageal folds here are slightly more prominent compared the prior study-this appearance however can be seen with hiatal hernia is as well as some a esophagitis. Clinical correlation with patient's symptomatology is advised. History states diffuse abdominal pain. Graft the stomach is distended-however there is contrast getting through it-correlate clinically stomach was also distended with mottled material previously-delayed gastric emptying gastroparesis is 1 consideration. LIVER: No mass or ductal dilatation noted. Diffuse fatty infiltration of the liver suggested. GALLBLADDER AND BILE DUCTS: Status post cholecystectomy. A calculus in the common bile duct is hree suggested. This measures approximately 6 to 7 mm in size (axial series 2, image 27; series 601, image 57. Proximal to this there is mild prominence to the extrahepatic bile ducts. No intrahepatic bile duct dilatation noted. Overall size of calculus and common bile duct and position are similar to prior studies. PANCREAS: Unremarkable. No gross lesion or ductal dilatation. SPLEEN: Unremarkable. ADRENALS: Unremarkable. No mass. KIDNEYS AND URETERS: Unremarkable. No hydronephrosis. No solid mass. VASCULATURE: No aortic aneurysm. There is presence of aortic atherosclerotic calcification and mural plaque on cross sectional studies. BOWEL: Rectosigmoid diverticulosis no complicating diverticulitis seen.. No gross mural thickening. No bowel obstruction seen. APPENDIX: Normal appendix. PERITONEUM: Unremarkable. No free fluid. No free air. LYMPH NODES: Unremarkable. No enlarged lymph nodes. BLADDER: Moderately distended. Otherwise unremarkable. REPRODUCTIVE: Prostate prominent measuring 5.8 x 4.4 x 4.4 cm with prostatic calcifications. Similar findings. BONES: Mild thoraco lumbar spondylosis and intervening degenerative disc disease-the latter most notable at the T12-L1 level. OTHER FINDINGS: None. IMPRESSION: Rectosigmoid redundancy with diverticulosis. No complicating diverticulitis. No bowel obstruction. Moderate stool retention noted. In the interval the distal esophagus and its folds are more prominent-a hiatal hernia here with the associated pseudo fold thickening of this esophageal segment is 1 consideration. Intrinsic esophageal mural thickening associated with esophagitis is another. Distended stomach-similar to prior study delayed gastric emptying/gastroparesis is 1 consideration. Status post cholecystectomy with similar 6 to 7 mm choledocho lithiasis noted. No interval intrahepatic bile duct dilatation noted. Size of the calculus in size of the extrahepatic bile ducts appear similar. Static enlargement with calcifications as above. Scribe Attestation: Documented by Chinmay Snyder, acting as a scribe for Marcus Mahmood MD. Provider Scribe Attestation: All medical record entries made by the Scribe were at my direction and person ally dictated by me. I have reviewed the chart and agree that the record accurately reflects my personal performance of the history, physical exam, medical decision making, and the department course for this patient. I have also personally directed, reviewed, and agree with the discharge instructions and disposition. Time: 1605 -- Patient tolerated PO. Patient could not recall PMD. However, patient in structed to follow up with PMD and GI. Patient to be discharged home. Disposition - Clinical Impression Clinical Impression: Chronic abdominal pain - Disposition Referrals: Goran Jimenez MD [Staff Provider] - Condition: IMPROVED Additional Instructions: follow up with your primary doctor as well as GI in 1-2 days return to the ED with any worsening or concerning symptoms Instructions: Chronic Pain (DC) Forms: [email or web address] (Urdu)
[2018-10-04 13:01] LABS: BASO # 0.1 K/uL (0.0-0.2); BASO % 0.6 % (0.0-2.0); EOS % 0.1 % (0.0-4.0); HEMOGLOBIN 15.1 g/dL (12.0-18.0); LYMPH # 1.1 K/uL (1.0-4.3); LYMPH % 8.9 % (20.0-40.0); MEAN CELL VOLUME 73.2 fl (80.0-94.0); MEAN CORPUSCULAR HEMOGLOBIN 22.6 pg (27.0-31.0); MEAN CORPUSCULAR HGB CONC 30.8 g/dL (33.0-37.0); MONO # 0.7 K/uL (0.0-0.8); MONO % 5.8 % (0.0-10.0); NEUT # 10.6 K/uL (1.8-7.0); NEUT % 84.6 % (50.0-75.0); NRBC % 0.2 % (0.0-0.0); PLATELET COUNT 250 K/uL (130-400); RBC 6.71 Mil/uL (4.40-5.90); RED CELL DISTRIBUTION WIDTH 15.8 % (11.5-14.5); WHITE BLOOD COUNT 12.6 K/uL (4.8-10.8)
[2018-10-04 13:38] LABS: ALB/GLOB RATIO 1.2 (1.0-2.1); ALBUMIN 4.5 g/dL (3.5-5.0); ALT/SGPT 29 U/L (21-72); AST/SGOT 21 U/L (17-59); BLOOD UREA NITROGEN 29 mg/dl (9-20); CALCIUM 9.2 mg/dL (8.4-10.2); GFR NON-AFRICAN AMERICAN > 60; LIPASE 36 U/L (23-300)
[2018-10-04 13:52] LABS: LYMPHOCYTE 12 % (20-50); MONOCYTE 6 % (0-10); NEUTROPHIL 82 % (42-75); PLATELET ESTIMATE NORMAL (NORMAL); TOTAL CELLS COUNTED 100
[2018-10-04 13:54] LABS: ANISOCYTOSIS SLIGHT
[2018-10-04 13:55] LABS: MICROCYTOSIS SLIGHT; OVALOCYTES SLIGHT
[2018-10-04] MEDS ORDERED: Sodium Chloride 0.9% 50 ML IV ONE (14:42)
[2018-10-04] MEDS ORDERED: Iohexol 300 100 ML IJ ONE (14:42)
--- NOTE | 2018-10-04 15:59 | CT ---
Date of service: 10/04/2018 PROCEDURE: CT Abdomen and Pelvis with contrast HISTORY: abd pain diffuse COMPARISON: 03/20/2018 TECHNIQUE: Contrast dose: 95 mL Omnipaque 300 Radiation dose: Total exam DLP = 640.02 mGy-cm. This CT exam was performed using one or more of the following dose reduction techniques: Automated exposure control, adjustment of the mA and/or kV according to patient size, and/or use of iterative reconstruction technique. FINDINGS: LOWER THORAX: A trace left lateral subpleural atelectasis with trace pleural thickening here suggested. A hiatal hernia suggested on the current study-the distal esophageal folds here are slightly more prominent compared the prior study-this appearance however can be seen with hiatal hernia is as well as some a esophagitis. Clinical correlation with patient's symptomatology is advised. History states diffuse abdominal pain. Graft the stomach is distended-however there is contrast getting through it-correlate clinically stomach was also distended with mottled material previously-delayed gastric emptying gastroparesis is 1 consideration. LIVER: No mass or ductal dilatation noted. Diffuse fatty infiltration of the liver suggested. GALLBLADDER AND BILE DUCTS: Status post cholecystectomy. A calculus in the common bile duct is hree suggested. This measures approximately 6 to 7 mm in size (axial series 2, image 27; series 601, image 57. Proximal to this there is mild prominence to the extrahepatic bile ducts. No intrahepatic bile duct dilatation noted. Overall size of calculus and common bile duct and position are similar to prior studies. PANCREAS: Unremarkable. No gross lesion or ductal dilatation. SPLEEN: Unremarkable. ADRENALS: Unremarkable. No mass. KIDNEYS AND URETERS: Unremarkable. No hydronephrosis. No solid mass. VASCULATURE: No aortic aneurysm. There is presence of aortic atherosclerotic calcification and mural plaque on cross sectional studies. BOWEL: Rectosigmoid diverticulosis no complicating diverticulitis seen.. No gross mural thickening. No bowel obstruction seen. APPENDIX: Normal appendix. PERITONEUM: Unremarkable. No free fluid. No free air. LYMPH NODES: Unremarkable. No enlarged lymph nodes. BLADDER: Moderately distended. Otherwise unremarkable. REPRODUCTIVE: Prostate prominent measuring 5.8 x 4.4 x 4.4 cm with prostatic calcifications. Similar findings. BONES: Mild thoraco lumbar spondylosis and intervening degenerative disc disease-the latter most notable at the T12-L1 level. OTHER FINDINGS: None. IMPRESSION: Rectosigmoid redundancy with diverticulosis. No complicating diverticulitis. No bowel obstruction. Moderate stool retention noted. In the interval the distal esophagus and its folds are more prominent-a hiatal hernia here with the associated pseudo fold thickening of this esophageal segment is 1 consideration. Intrinsic esophageal mural thickening associated with esophagitis is another. Distended stomach-similar to prior study delayed gastric emptying/gastroparesis is 1 consideration. Status post cholecystectomy with similar 6 to 7 mm choledocho lithiasis noted. No interval intrahepatic bile duct dilatation noted. Size of the calculus in size of the extrahepatic bile ducts appear similar. Static enlargement with calcifications as above.
[2018-10-04 17:16] VITALS: BP 148/69; PULSE 91; TEMP 98.8; O2SAT 96
== END 2018-10-04 17:17 | disposition home or self-care (01) ==
LOC: H.ER 10:52
DX: R10.9 Unspecified abdominal pain (principal); K57.90 Diverticulosis of intestine, part unspecified, without perforation or abscess without bleeding; I25.10 Atherosclerotic heart disease of native coronary artery without angina pectoris; Z79.4 Long term (current) use of insulin; Z95.5 Presence of coronary angioplasty implant and graft
CPT/HCPCS: 74177; 80053; 83690; 85025; 96360; 99283; J2405; J7030; Q9966; Q9967